=== PATIENT | male | born 1950 | race Caucasian/White ===

== ENCOUNTER 2021-08-09 05:59 | Observation (INO) ==
--- NOTE | 2021-07-21 08:48 | PAT Medication Instructions ---
Medication Instructions Date of Service July 21, 2021 Home Medications Lactobacillus acidophilus 10 billion cell capsule (Probiotic) 10,000 mmu cells PO QAM acetaminophen 650 mg tablet,extended release 1,300 mg PO Q8H PRN cod liver oil 1 cap PO QPM vitamins A,C,P-nlkf-bbeoqf 14,320 unit-226 mg-200 unit capsule (PreserVision AREDS) 1 cap PO QAM STOP taking 2 weeks before surgery cod liver oil 1 cap PO QPM vitamins A,C,V-vzie-eyanex 14,320 unit-226 mg-200 unit capsule (PreserVision AREDS) 1 cap PO QAM DO NOT take the morning of surgery Lactobacillus acidophilus 10 billion cell capsule (Probiotic) 10,000 mmu cells PO QAM Take morning of surgery With a small sip of water, OTHERWISE NOTHING TO EAT OR DRINK AFTER MIDNIGHT: acetaminophen 650 mg tablet,extended release 1,300 mg PO Q8H PRN (okay to take up to 4 hours prior to surgery if needed) Take evening before surgery acetaminophen 650 mg tablet,extended release 1,300 mg PO Q8H PRN (if needed) Other Notes If you have any questions please call us at [phone] or [phone] or [phone] or [phone]
--- NOTE | 2021-07-21 08:59 | Anesthesiology Consultation ---
Date of Service July 21, 2021 Assessment & Plan (1) Encounter for pre-operative examination: - COVID screening: Per assessment on 07/21: Travel screen negative, no known COVID-19 positive contacts or current COVID-19 related symptoms. Surgeon arrang ing preop COVID testing. Awaiting results. - Preop testing: Mild anemia and nonspecific CXR changes (with no acute process) noted on preop testing. Reviewed with Dr. Christopher. Okay to proceed with given surgery but recommendation to establish with PCP post-operatively as patient not currently following with a PCP. Surgeon's office was made aware to forward mes amrit to patient. Chart Review Chart Review: Acceptable Risk for Surgery (pending evaluation AM DOS) and Patient seen in Pre Admission Testing Teaching & Discussion Pre-Anesthesia Teaching/Discussion Notes: Instructed NPO after midnight before surgery,except medications with 15 cc of water. Medication instructions provided according to the PAT guidelines. History Surgery Operation Date: 08/09/21 12:45 Proposed Procedures p Left Anerior Hip Replacement - Ney Joy DO Height/Weight Height: 5 ft 4 in Weight: 78.9 kg Allergies Allergy/AdvReac Type Severity Reaction Status Date / Time No Known Allergies Allergy Verified 07/21/21 08:39 Medications Home Medications Medication Instructions Recorded Confirmed Last Taken Lactobacillus acidophilus 10 10,000 mmu cells PO QAM 07/21/21 07/21/21 Unknown billion cell capsule (Probiotic) acetaminophen 650 mg 1,300 mg PO Q8H PRN 07/21/21 07/21/21 Unknown tablet,extended release cod liver oil 1 cap PO QPM 07/21/21 07/21/21 Unknown vitamins A,C,N-drzh-zwivwa 14,320 1 cap PO QAM 07/21/21 07/21/21 Unknown unit-226 mg-200 unit capsule (PreserVision AREDS) Past Medical History Medical History Osteoarthritis Exercise / Class Metabolic Activity II 4-5 Yardwork/Stairs/Walk up hill Past Family History Family History Other No family history of adverse response to anesthesia Past Surgical History Surgical History History of herniorrhaphy Inguinal hernia (done under local) History of tooth extraction Past Anesthesia History No Hx of Anesthesia Complications and No Family Hx of Anesthesia Complications History of PONV No Hx of PONV and No Hx of Motion Sickness Social History Smoking Status: Never smoker Do You Dip or Chew Tobacco: No Hx Alcohol Use: No substance use type: does not use Review of Systems Patient denies chest pain, shortness of breath, dyspnea on exertion, fever, chills, cough, wheezing, palpitations. Physical Exam Vital Signs VITALS BP 162/85 P 76 TEMP 98.5 SP02 96%RA RESP 16 PHYSICAL Full cervical extension range of motion. Full TMJ range of motion. TMD 3.5 finger breaths Mallampati Score 2 Dentition: upper/lower full dentures Lungs: clear throughout to auscultation Cardiac: regular rate and rhythm, no murmurs noted Spine: normal Carotid arteries: negative bruit Extremities: no edema Long, thin galvez- pt Chris, wishes not to cut/trim d/t muslim reasons Lab Results Anesthesia Preop Results Results Anesthesia Widget: WBC 6.50 K/uL (4.8-10.8) 07/21/21 Hgb 11.4 g/dL (14.0-18.0) L 07/21/21 Hct 35.0 % (42-52) L 07/21/21 Plt 247 K/uL (130-400) 07/21/21 Na 140 mmol/L (136-145) 07/21/21 K 5.1 mmol/L (3.5-5.1) 07/21/21 Cl 107 mmol/L (98-107) 07/21/21 CO2 27 mmol/L (21-32) 07/21/21 BUN 21 mg/dl (7-18) H 07/21/21 Creat 1.28 mg/dl (0.6-1.4) 07/21/21 Glucose Level 103 mg/dl (70-99) H 07/21/21 PT 10.3 Seconds (9.0-12.0) 07/21/21 PTT 28.5 Seconds (21.0-31.0) 07/21/21 INR 1.0 (0.9-1.1) 07/21/21 Blood Type O Positive 07/21/21 Antibody Screen NEGATIVE 07/21/21 Testing Electrocardiogram Date: 07/21/21 Normal sinus rhythm at 61 bpm. Moderate voltage criteria for LVH, may be normal variant. Chest X-Ray Date: 07/21/21 FINDINGS: There is a 1 cm dense nodule within the left lower lobe. This favors a calcified granuloma. No pneumothorax. No pleural effusions. The heart is normal in size. No evidence for pulmonary edema. No focal lung consolidations to suggest pneumonia. Mild volume loss within the right hemithorax. This could be chronic. IMPRESSION: No acute process within the chest. Mild volume loss within the right hemithorax. Comparison to prior studies would be helpful to assess for stability.
--- NOTE | 2021-08-06 06:04 | History & Physical Report ---
Date of Service August 06, 2021 Assessment & Plan (1) Osteoarthritis of left hip: He planWe will proceed with a left anterior total hip arthroplasty. Postoperatively he will be started on aspirin for DVT prophylaxis and kept overnight in the hospital for postoperative medical management. Is to do his own physical therapy upon discharge. History of Present Illness Chief Complaint: Osteoarthritis of the left hip. Primary Care Provider: SWAPNA PCP Nicolas is a pleasant 71-year-old male who is been dealing with chronic worsening left hip and groin pain. X-rays and clinical examination have been diagnostic for advanced osteoarthritis of the left hip. After failing extensive conservative treatment, he has elected proceed with a left anterior total hip arthroplasty.. Allergies Allergy/AdvReac Type Severity Reaction Status Date / Time No Known Allergies Allergy Verified 07/21/21 08:39 Home Medications Medication Instructions Recorded Confirmed Type Lactobacillus acidophilus 10 10,000 mmu cells PO QAM 07/21/21 07/21/21 History billion cell capsule (Probiotic) acetaminophen 650 mg 1,300 mg PO Q8H PRN 07/21/21 07/21/21 History tablet,extended release cod liver oil 1 cap PO QPM 07/21/21 07/21/21 History vitamins A,C,A-fcgo-qtqaie 14,320 1 cap PO QAM 07/21/21 07/21/21 History unit-226 mg-200 unit capsule (PreserVision AREDS) Past Med/Surg History Medical History Osteoarthritis Surgical History History of herniorrhaphy Inguinal hernia (done under local) History of tooth extraction Family History Other No family history of adverse response to anesthesia Social History Smoking Status: Never smoker Second Hand Exposure: No; Hx Alcohol Use: No Preferred Language: Lithuanian Fisher Required: No Beliefs That Will Affect Care: Quaker Quaker Beliefs: JU Current Living Situation: Family Current Living Situation Comment: AND 2 DAUGHTERS Feels Safe at Home: Yes Assistive Devices: Cane, Denture - Upper, Denture - Lower and Glasses Review of Systems All systems reviewed & are unremarkable except as noted in HPI & below. Physical Exam On physical examination of the left hip, he has a slightly antalgic gait. He has limited range of motion with flexion, internal and external rotation. He has pain with forced internal rotation of his hip.. Constitutional WD/WN, vitals as above Eyes PERRL, conjunctivae normal, anicteric sclerae ENMT external ear and nose normal, oropharynx normal Neck trachea midline, no thyromegaly Respiratory normal respiratory effort Cardiovascular RRR, no murmur, no edema Gastrointestinal (Abdomen) normal bowel sounds, soft, nontender, no hepatosplenomegaly Psychiatric A+Ox3, euthymic affect Results & Data Results & Data Laboratory Results . Diagnostic Findings X-rays of the left hip show advanced osteoarthritis with joint space narrowing, osteophyte formation, and vfcn-iy-vbrv articulation. PG Care Time/CCT Total # of Minutes Spent Total Time Spent with Patient: Total time spent is greater than 50% in coordination of care (as documented) at patient's floor/unit and/or counseling patient: Coding Level of Care Code None Diagnoses Osteoarthritis of left hip M16.12
[2021-08-09] MEDS ORDERED: FAMOTIDINE 20 MG TAB PO SCH (06:00)
[2021-08-09] MEDS ORDERED: TRANEXAMIC ACID 1,000 MG **IV Pre-op IV SCH (06:00)
[2021-08-09] MEDS ORDERED: ROPIVACAINE 0.5% HCL/PF 150 MG, BUPIVACAINE 0.75% MPF 20 ML, EPINEPHrine 30MG/30ML (OR ... INSTIL SCH (06:00)
[2021-08-09] MEDS ORDERED: GABAPENTIN 300 MG CAP PO SCH (06:00)
[2021-08-09] MEDS ORDERED: LR 500ML BOLUS, THEN 15ML/HR IV SCH (06:00)
[2021-08-09] MEDS ORDERED: TRANEXAMIC ACID 1,000 MG **IV Intra-op IV SCH (06:00)
[2021-08-09] MEDS ORDERED: ceFAZolin 2000MG 2,000 MG/15 ML SYR IV SCH (06:00)
[2021-08-09] MEDS ORDERED: LR 60ML/HR IV SCH (06:00)
[2021-08-09] MEDS ORDERED: dexAMETHasone 4 MG TAB PO SCH (06:00)
[2021-08-09] MEDS ORDERED: ACETAMINOPHEN 500 MG TAB ONE (06:30)
[2021-08-09] MEDS ORDERED: BUPIVACAINE 0.5 % 5 MG/1 ML PF 10ML VIAL ONE (06:36)
--- NOTE | 2021-08-09 06:37 | History & Physical Bridge Note ---
Date of Service August 09, 2021 History & Physical Bridge Note I have examined the patient, reviewed the History & Physical and in the interval since the performance of the History & Physical I have noted the following changes of clinical significance: no changes noted
[2021-08-09] MEDS ORDERED: fentaNYL citrate 100 MCG/2 ML VIAL IV PRN (07:36)
[2021-08-09] MEDS ORDERED: ATROPINE SULFATE 0.1 MG/ML 10ML SYR IV PRN (07:36)
[2021-08-09] MEDS ORDERED: ePHEDrine sulfate 50 MG/ML AMP IV PRN (07:36)
[2021-08-09] MEDS ORDERED: ONDANSETRON INJ 2 MG/ML 2 ML VIAL IV PRN ×2 (07:36→11:47)
[2021-08-09] MEDS ORDERED: MIDAZOLAM HCL 1 MG/ML 2ML VIAL ONE (07:55)
[2021-08-09] MEDS ORDERED: fentaNYL citrate 100 MCG/2 ML VIAL ONE (07:55)
[2021-08-09] MEDS ORDERED: ORTHO JOINT ANESTHETIC ONE (08:44)
[2021-08-09] MEDS ORDERED: ONDANSETRON INJ 2 MG/ML 2 ML VIAL ONE (09:18)
[2021-08-09] MEDS ORDERED: LIDOCAINE 2% 2 ML VIAL/AMP(20MG/ML) INFIL ONE (09:18)
[2021-08-09] MEDS ORDERED: PHENYLEPHRINE 100MCG/ML 5ML SYR ONE (09:18)
[2021-08-09] MEDS ORDERED: PROPOFOL IV EMULSION 10 MG/ML 20 ML VIAL IV ONE (09:18)
--- NOTE | 2021-08-09 10:31 | Operative Report ---
PG Post Operative Report Pre & Post Diagnosis Operation Date: 08/09/21 08:30 Pre-Op Diagnosis: Left Hip Osteoarthritis Post-Op Diagnosis: Left Hip Osteoarthritis I identified the patient and participated in the time-out.: Yes Procedure Operation Date: 08/09/21 08:30 Actual Procedures p Left Anterior Total Hip Replacement(Left) - Ney Joy DO Surgeon Ney Joy, Undercutter Operator Ney Thomas PAC Estimated Blood Loss 200 Findings Consistent with Post-Op Diagnosis Specimens Left femoral head Complications none Disposition Disposition: Recovery Room Indications Nicolas is a pleasant 71-year-old male who is been dealing with chronic increasing left hip and groin pain. X-rays and clinical examination are diagnostic for advanced osteoarthritis of the left hip. After failing conservative treatment, he elected proceed with a left anterior total hip arthroplasty. Description of Procedure Implants used I used a ZimmerBiomet total hip arthroplasty system with a size 2 high offset Avenir Complete stem, a 54 mm G7 cup with a 25mm screw, an E1 polyethylene liner, a 40 mm ceramic head with a +3.5 neck. Nicolas arrived at the hospital for the above procedure. He was seen in the preoperative holding area and the operative extremity was identified and signed. He was given a spinal anesthetic, a preoperative antibiotic, and TXA. He was then taken back to the operating room and laid on the table in the supine position. He was given basic sedation. The operative leg was secured to a Puristst leg positioner. The hip was then prepped and draped in sterile fashion. A timeout was done and the patient and the operative extremity was properly identified. An anterior approach was used. Dissection was taken down through the fascia and the tensor muscle belly was retracted laterally and the rectus was retracted medially. The circumflex vessels were identified and ligated. The capsule was then incised and tagged for later repair. The femoral neck was then cut and the femoral head was removed. The acetabulum was exposed. Time was spent doing a complete circumferential labral release. Sequential reaming of the acetabulum up to a size 53 reamer was done. Final reamings were done under fluoroscopy to ensure appropriate version. A Biomet 54 mm G7 cup was then impacted into place. A single 25 mm screw was placed. The E1 polyethylene liner was then snapped into place. Surrounding soft tissues were then injected with 100 cc of an orthopedic pain control cocktail. The proximal femur was then exposed. Sequential broaching up to a size 2 broach was done. Off that broach a size 40 head with a +3.5 neck was trialed. The hip was reduced and fluoroscopic images showed anatomic alignment of the implants in acceptable length. The broach was removed. The final size 2 high offset Avenir Complete stem was then impacted into place. A ceramic 40 mm head with a +3.5 neck was then impacted onto the stem and the hip was reduced. Final fluoroscopic images showed anatomic alignment of the hip. The capsule was then closed with #1 Vicryl suture. A dilute betadyne lavage was then done for 3 minutes. The joint was then irrigated with normal saline solution. The fascia was closed with #1 PDS suture. Skin was closed with 2-0 Vicryl, tatiana, and a Silverlon dressing. He was then transferred to a hospital bed and taken to the post anesthesia care unit in stable condition. He tolerated the procedure well. Ney Thomas PA-C, was present for the entire procedure. He was critical for patient positioning, prepping, draping, retraction exposure, wound closure and application of sterile dressing. I attest to the content of the Intraoperative Record and any orders documented therein. Any exceptions are noted below.
--- NOTE | 2021-08-09 10:41 | Fluoroscopy Report ---
FL hip LT 1V HISTORY: 71 years-old Male LEFT ANTERIOR HIP left hip total joint arthroplasty COMPARISON: Hip radiograph 06/17/2021 TECHNIQUE: 2 spot fluoroscopic images of the left hip were obtained utilizing 23.5 seconds fluoroscop y time FINDINGS: Left hip total joint arthroplasty demonstrates satisfactory alignment. No acute fracture or unexpecte d opaque foreign body. Expected postoperative soft tissue swelling with deep tissue air. IMPRESSION: Left hip total joint arthroplasty with expected postoperative changes. ACT 112: Negative or not required by law. The above report was generated using voice recognition software. It may contain grammatical, syntax o r spelling errors. Electronically signed by: David Bryson M.D. 08/09/2021 10:40 AM
--- NOTE | 2021-08-09 11:38 | Anesthesiology Progress Note ---
Date of Service August 09, 2021 Anesthesia Post Procedure Vital Signs Vital Signs: Temp Pulse Pulse Resp BP Pulse Ox 08/09/21 11:25 97.7 F 70 12 125/78 95 08/09/21 11:15 75 12 130/76 97 08/09/21 11:05 77 12 127/71 100 08/09/21 10:55 75 18 129/77 100 08/09/21 10:46 98.4 F 83 14 131/70 100 08/09/21 07:29 98.2 F 70 20 175/94 H 100 08/09/21 06:52 98.2 F 79 20 171/93 H 98 Transfer of Care Handoff Completed per policy Notes Mental Status: alert / awake / arousable and participated in evaluation Patient Amnestic to Procedure: Yes Nausea / Vomiting: adequately controlled Pain: adequately controlled Airway Patency, RR, SpO2: stable & adequate BP & HR: stable & adequate Hydration State: stable & adequate Neuraxial Anesthesia: was administered and sensory block is resolving Anesthetic Complications: no major complications apparent and Pt Satisfied with anesthetic care
[2021-08-09] MEDS ORDERED: SODIUM CHLORIDE 0.9% 1000ML 1,000 ML IV SCH (11:47)
[2021-08-09] MEDS ORDERED: METOCLOPRAMIDE HCL INJ 5 MG/ML 2 ML VIAL IV PRN (11:47)
[2021-08-09] MEDS ORDERED: MAGNESIUM HYDROXIDE SUSP 30 ML UDC PO PRN (11:47)
[2021-08-09] MEDS ORDERED: NALOXONE HCL 0.4 MG/1 ML VIAL/CARP IV PRN (11:47)
[2021-08-09] MEDS ORDERED: HYDROmorphone INJ 0.5 MG/0.5 ML SYR IV PRN (11:47)
[2021-08-09] MEDS ORDERED: bisacodyL 10 MG SUPP PR PRN (11:47)
[2021-08-09] MEDS ORDERED: oxyCODONE HCL IR 5 MG TAB (IMMEDIATE RELEASE) PO PRN (11:47)
--- NOTE | 2021-08-09 13:13 | XRay Report ---
XR hip 1V LT w pelvis INDICATION: MN ^Y ^YESENIA ^IN PACU - A/P PELVIS and LATERAL HIP ^INCLUDE ALL OF IMPLANT TECHNIQUE: 1 views of the left hip were obtained. Comparison: Comparison is made to intraoperative fluoroscopy 08/09/2021 and left hip 3 views 06/17/2021 FINDINGS: There is interval placement of a right total hip arthroplasty. No evidence of hardware fracture. Subc utaneous emphysema is seen postprocedurally. The right hip demonstrates moderate osteoarthritic donovan es with calcific bodies The bones are anatomically aligned. The bony mineralization is normal. IMPRESSION: Status post left hip arthroplasty. ACT 112: Negative or not required by law. Electronically signed by: Franki Bang M.D. 08/09/2021 1:11 PM
[2021-08-09] MEDS: ACETAMINOPHEN 500 MG TAB PO SCH ×2 (14:09→21:07)
[2021-08-09] MEDS: KETOROLAC TROMETHAMINE 15 MG/ML VIAL IV SCH ×2 (14:10→18:31)
[2021-08-09] MEDS: ceFAZolin 2000MG 2,000 MG/15 ML SYR IV SCH (17:32)
[2021-08-09] MEDS ORDERED: SENNA 8.6 MG TAB PO SCH (21:00)
[2021-08-09] MEDS: ASPIRIN 81 MG ECTAB PO SCH (21:07)
[2021-08-09] MEDS: DOCUSATE SODIUM 100 MG CAP PO SCH (22:06)
[2021-08-10] MEDS: KETOROLAC TROMETHAMINE 15 MG/ML VIAL IV SCH ×3 (02:17→11:57)
[2021-08-10] MEDS: ceFAZolin 2000MG 2,000 MG/15 ML SYR IV SCH (02:17)
[2021-08-10] MEDS: ACETAMINOPHEN 500 MG TAB PO SCH (06:03)
--- NOTE | 2021-08-10 06:32 | Orthopedic Progress Note ---
Date of Service August 10, 2021 Assessment & Plan (1) Status post left hip replacement: Overall is doing very well. Is not having much pain in the left hip. He will be seen by physical therapy today for ambulation and range of motion exercises. He is on aspirin for DVT prophylaxis. He can be discharged home later today. He will follow-up with orthopedics in 2 weeks. Subjective Nicolas was seen at bedside this morning. Overall is doing very well. Is not having much pain in the left hip. He has been up and ambulating to the bathroom. He has no complaints.. Review of Systems All systems reviewed & are unremarkable except as noted in HPI & below. Physical Exam On physical examination of the left hip, the dressing is clean and dry. He has active dorsiflexion plantarflexion of his left ankle. Sensation is intact throughout. Results & Data Results & Data Laboratory Results . Diagnostic Findings Postoperative x-rays of the left hip show the prosthesis to be in anatomic alignment without any evidence of fracture, dislocation, or loosening. PG Care Time/CCT Total # of Minutes Spent Total Time Spent with Patient: Total time spent is greater than 50% in coordination of care (as documented) at patient's floor/unit and/or counseling patient: Coding Level of Care Code 07248 Post Operative Follow-Up Diagnoses Status post left hip replacement Z96.642
--- NOTE | 2021-08-10 06:33 | Discharge Summary ---
Date of Service August 10, 2021 Admission HPI (Per Admitting) Nicolas is a pleasant 71-year-old male who is been dealing with chronic worsening left hip and groin pain. X-rays and clinical examination have been diagnostic for advanced osteoarthritis of the left hip. After failing extensive conservative treatment, he has elected proceed with a left anterior total hip arthroplasty.. Admission Exam (Per Admitting) On physical examination of the left hip, he has a slightly antalgic gait. He has limited range of motion with flexion, internal and external rotation. He has pain with forced internal rotation of his hip.. Principal Diagnosis Same as "Discharge Diagnosis" noted below under Discharge Instructions. Discharge Exam On physical examination of the left hip, the dressing is clean and dry. He has active dorsiflexion plantarflexion of his left ankle. Sensation is intact throughout. Discharge Data Procedures Performed Operation Date: 08/09/21 08:30 Actual Procedures p Left Anterior Total Hip Replacement(Left) - Ney Joy DO Ordered Studies 08/09/21 08:30 FL hip LT 1V Routine Hospital Course (1) Status post left hip replacement: On August 09, 2021 Nicolas arrived at [facility] and underwent a left hip replacement without complication. He had a spinal anesthetic. Postoperatively he was started on aspirin for DVT prophylaxis and transferred to the general orthopedic floors. His hospital course was uneventful. On postop day #1 his vital signs were stable and his pain was well controlled. He was able to participate well with physical therapy doing ambulation and range of motion exercises. He was then discharged home. He will follow-up with orthopedics in 2 weeks. PG Care Time/CCT Total # of Minutes Spent Total Time Spent with Patient: Total time spent is greater than 50% in coordination of care (as documented) at patient's floor/unit and/or counseling patient: Discharge Plan Discharge Items Patient Disposition: Home - Home Health Services Reason For Visit: Left Hip Osteoarthritis Discharge Diagnosis: Left hip replacement Activity: As commented below Non-emergency contact: Surgeon Call non-emergency contact if: your wound has increased redness and your wound has increased drainage Follow-up/Referrals: PCP,NO [Primary Care Provider] - Diet: Regular Addtl Attending Provider Instructions: Activity and Therapy Recommendations: * If you are using [facility] then therapy will be provided at your home until they feel you have accomplished all of your goals. * If you are using [facility] then Physical Therapy will be provided until they feel you are ready to start Outpatient Physical Therapy. * If you are not using home therapy then Outpatient Physical Therapy should start about 3-5 days from your day of surgery. Therapy will last about 6-10 weeks * You were shown a series of exercises in the hospital. Do these exercises three times each day including the exercises you were shown in physical therapy. * Get up and walk several times each day.~ For the first four weeks, try not to stand or walk for more than one hour at a time. If you do stand or walk for more than one hour, you will not hurt anything, but your leg will likely swell.~~ * As you feel comfortable, you may change from the walker or crutches to a cane and~then to independent walking. Medications: * Narcotic You will likely be sent home from the hospital with a prescription for the narcotic pain medication that worked best throughout your stay. * Aspirin Most patients will be required to take Aspirin 81mg twice a day for 6 weeks after surgery. This is obtained [id number] and a prescription is not necessary. * Other medications may be prescribed for specific circumstances. If you have any questions, please call the office at . * Resume previous home medications unless otherwise instructed TEDs/Elastic Stockings: The white elastic stockings help limit swelling and prevent blood clots from forming in your legs. The more you wear them, the more they work. Wear them for six weeks. Dressing Care: Leave the Silverlon dressing in place for 7 days. After 7 days you may remove the dressing. If the incision is not draining then you may leave the tatiana open to air. If there is a little bit of drainage or if the tatiana are getting stuck on your clothing then cover the incision with a dry dressing. The tatiana will be removed at your 2 week follow-up appointment. Showering: You may shower with the Silverlon dressing in place. Do not let the shower spray hit the dressing directly. Pat the Silverlon dressing dry. If the dressing becomes wet underneath, then simply remove the dressing. Keep the incision dry until you are 7 days out from the day of surgery. After 7 days you may remove the Silverlon dressing and shower with the tatiana exposed. Let soapy water run over the tatiana and pat them dry. Do not scrub or soak the incision. Things To Watch For: * Drainage from the incision site that occurs more than one week after your surgery. * Increased redness at the incision site. * Fever above 102 degrees Fahrenheit. * Unusual chest pain or shortness of breath. * Call [facility] at with any of the above problems Follow-Up Visit: Follow-up with Dr. Joy's PA (Ney Thomas) 2-3 weeks after your day of surgery. He will remove your tatiana and answer any questions. If you have any additional questions or concerns, Dr Joy is usually in the office at the same time and will be available An appointment was probably scheduled when you signed-up for surgery in the office. If you have any questions call Office Instructions: More detailed instructions as well as Frequently Asked Questions were provided in a folder by our office when you signed-up for surgery. Please review these instructions when you get home. If you have any further questions or concerns, please feel free to call the office at [phone] Pending Studies at Discharge: No Stand-Alone Forms: My [facility] [employer], Smoking Cessation Medications and DC Order Prescriptions: New oxycodone 5 mg Tablet 5 mg PO Q4H PRN (Reason: pain) Qty: 30 RF: 0 aspirin 81 mg Tablet,Delayed Release (Dr/Ec) 81 mg PO BID 42 Days Qty: 84 RF: 0 Continued cod liver oil Capsule 1 cap PO QPM RF: 0 acetaminophen [Tylenol Arthritis] 650 mg Tablet Extended Release 1,300 mg PO Q8H PRN (Reason: Pain) RF: 0 PreserVision AREDS 14,320-226-200 [id number] Capsule 1 cap PO QAM RF: 0 Probiotic 10 billion cell Capsule 10,000 mmu cells PO QAM RF: 0 Discharge Orders: Discharge Order (Routine); Ordered 08/10/21 Ordered By: Ney Joy Admission Data Admit Date/Time: 08/09/21 10:47 Attending Provider: Ney Joy Admit Provider: Ney Joy Primary Care Provider: PCP,SWAPNA
[2021-08-10] MEDS ORDERED: dexAMETHasone 4 MG TAB PO SCH (08:00)
[2021-08-10] MEDS: ASPIRIN 81 MG ECTAB PO SCH (08:50)
[2021-08-10] MEDS: DOCUSATE SODIUM 100 MG CAP PO SCH (08:50)
[2021-08-10] MEDS ORDERED: MULTIVITAMIN TAB PO SCH (09:00)
== END 2021-08-10 13:00 | disposition home or self-care (01) ==
LOC: 3E 05:59 → ASU 05:59

== ENCOUNTER 2022-08-04 12:21 | Inpatient (IN) ==
[2022-08-04 14:02] LABS: Partial Thromboplastin Time 26.8 Seconds (21.0-31.0); Prothrombin Time 11.1 Seconds (9.0-12.0)
[2022-08-04 14:29] LABS: Hematocrit (blood only) 24.6 % (40.1-51.0); Hemoglobin 7.8 g/dl (14.0-18.0); Mean Corpuscular Hgb Conc 31.7 g/dL (32.0-36.0); Mean Corpuscular Volume 94.6 fL (80.0-100.0); Platelet Count 156 K/uL (130-400); White Blood Count 6.36 K/ul (4.8-10.8)
[2022-08-04 14:30] LABS: Albumin Globulin Ratio 1.3 (0.9-2); Albumin Level 3.6 gm/dl (3.4-5.0); BUN Creatinine Ratio 13.2 (10-20); Bilirubin,Total 0.3 mg/dl (0.2-1.0); Calcium 8.4 mg/dl (8.5-10.1); Creatinine Clr Calc Pharmacy 11.3 ml/min; Est GFR (Non-African American) 9.5 ml/min; Globulin 2.8 gm/dl (2.5-4.0); Potassium 4.9 mmol/L (3.5-5.1); Total Protein 6.4 gm/dl (6.0-8.3)
[2022-08-04] MEDS ORDERED: SODIUM CHLORIDE 0.9% 250 ML IV PRN (15:26)
[2022-08-04 15:53] LABS: Magnesium 2.1 mg/dl (1.7-2.4)
--- NOTE | 2022-08-04 17:00 | CT Scan Report ---
CT SCAN OF THE ABDOMEN AND PELVIS WITHOUT IV CONTRAST CLINICAL HISTORY: Acute renal insufficiency. COMPARISON STUDY: Lumbar spine radiographs dated 06/17/2021. TECHNIQUE: CT scan of the abdomen and pelvis is performed from the lung bases to the proximal femora. Images are reviewed in the axial, sagittal, and coronal planes. IV contrast was not administered for this examination. A dose lowering technique was utilized adhering to the principles of ALARA. CT DOSE: 477.70 mGy.cm FINDINGS: Lung bases: The heart is in the large and without pericardial effusion. There are scattered coronary artery calcifications. There is diminished attenuation of the cardiac blood pool as compared to the m yocardium suggesting anemia. There are small pleural effusions with dependent consolidation. Emphysem atous change is suspected. Parenchymal scarring is seen at both lung bases. A 1.2 cm calcification-co ntaining nodule is seen in the lingula on image #43. A calcified granuloma seen at the right lung bas e. Liver: The unenhanced liver is normal in size, contour, and attenuation. There is no intrahepatic alexandra iary ductal dilatation. Scattered hepatic cysts measure up to 17 mm. Gallbladder: There are tiny calcified gallstones without CT evidence of acute cholecystitis. Spleen: Normal in size and attenuation. Pancreas: The unenhanced pancreas is moderately atrophic and grossly unremarkable. Adrenal glands: Unremarkable. Kidneys: The unenhanced kidneys are atrophic and without hydronephrosis. There are no renal calculi i dentified. A 1.9 cm cyst is noted in the left kidney. Abdominal vasculature: The abdominal aorta is normal in course and caliber noting mild atheroscleroti c calcification. Bowel: There is moderate to advanced colonic diverticulosis without CT evidence of acute diverticulit is. No bowel obstruction is seen. The appendix is well-visualized and normal. Peritoneum: There is no intraperitoneal free air or abdominal ascites. There is a fat-containing umbi lical hernia. Lymphadenopathy: None. Pelvic viscera: Evaluation of the pelvis is degraded by streak artifact from a left hip arthroplasty. The prostate gland is enlarged and heterogeneous noting median lobe hypertrophy. The bladder is dist ended, and the wall appears thickened/trabeculated indicating chronic outlet obstruction. There are l arge left and small right-sided hydroceles. There is evidence of previous left inguinal herniorrhaphy . A small fat-containing inguinal hernia is noted on the right. Skeletal structures: The skeletal structures are osteopenic. There is moderate lumbosacral spondylosi s. No lytic or blastic lesions are seen. A left hip arthroplasty is in place. Arthritic change is see n in the right hip. IMPRESSION: 1. No acute infectious or inflammatory findings are identified in the abdomen or pelvis. 2. Cardiomegaly and small pleural effusions. 3. Colonic diverticulosis without CT evidence of acute diverticulitis. 4. Prostatomegaly with evidence of chronic bladder outlet obstruction. 5. Large left and small right hydroceles. 6. Cholelithiasis. 7. Additional findings as above. ACT 112: Negative or not required by law. Electronically signed by: Samy Chester M.D. 08/04/2022 4:58 PM
--- NOTE | 2022-08-04 17:04 | Emergency Department Note ---
History of Present Illness General Chief Complaint: Abnormal Labs/Diagnostic Testing Stated Complaint: SENT BY , ABNORMAL LABS Time Seen by Provider: 08/04/22 15:05 History of Present Illness Provider Complaint: + abnormal lab Initial visit (ago): week(s) (2) Description of abnormal result: Low hemoglobin Associated symptoms: + shortness of breath, + malaise and + nausea; no chest pain HPI narrative: 72-year-old male presents emergency department for shortness of breath and nausea for the last 2 weeks. The patient states his PCP referred him over because his hemoglobin was low. Patient denies any melena or hematochezia. Denies any hematuria or dysuria. No chest pain. Home Medications Medication Instructions Recorded Confirmed Type No Known Home Medications 08/04/22 08/04/22 History Allergies Allergy/AdvReac Type Severity Reaction Status Date / Time No Known Allergies Allergy Verified 08/04/22 18:02 Past Med/Surg History Medical History (Updated 08/04/22 @ 18:24 by KRISTIN Kohler) Osteoarthritis Surgical History (Updated 08/04/22 @ 18:00 by KRISTIN Kohler) History of herniorrhaphy Inguinal hernia (done under local) History of hip replacement History of tooth extraction Family History (Updated 08/04/22 @ 18:00 by KRISTIN Kohler) Other Anemia No family history of adverse response to anesthesia Denies family history of Heart disease Cancer Social History Smoking Status: Never smoker Second Hand Exposure: No; Hx Alcohol Use: No Preferred Language: [place] Communication Ability: Effective 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 Beliefs That Will Affect Care: Yazidi Yazidi Beliefs: [facility] marital status: Current Living Situation: Family Current Living Situation Comment: AND 2 DAUGHTERS Feels Safe at Home: Yes Assistive Devices: Walker Review of Systems A total of 10 systems reviewed and were otherwise negative Physical Exam Vital Signs: Vital Signs - 24 hr 08/04/22 12:38 08/04/22 15:34 08/04/22 17:16 Temperature 36.5 C 36.8 C Temperature Source Temporal Artery Sc an Oral Pulse Rate 56 L 80 Pulse Rate [Right Finger] 79 Respiratory Rate 17 14 16 Blood Pressure 202/85 H Blood Pressure Emily n 124 Pulse Oximetry 98 95 96 Oxygen Delivery Me thod Room Air Room Air Sepsis Recent Feve r Within 48 Hours No Sepsis New/Unexpla ined Change in Men cas Status N/A Sepsis Action Take n by Nursing No Action Required 08/04/22 17:33 08/04/22 17:48 Temperature 36.7 C Temperature Source Oral Pulse Rate 82 80 Pulse Rate [Right Finger] Respiratory Rate 17 16 Blood Pressure Blood Pressure Emily n Pulse Oximetry 97 97 Oxygen Delivery Me thod Sepsis Recent Feve r Within 48 Hours Sepsis New/Unexpla ined Change in Men cas Status Sepsis Action Take n by Nursing Physical Exam: Physical Exam GENERAL: He is oriented to person, place, and time. He appears well-developed and well-nourished. He does not appear distressed. HENT: Exam performed. - Head: Normocephalic and atraumatic. - Right Ear: External ear normal. No mastoid tenderness. - Left Ear: External ear normal. No mastoid tenderness. - Mouth/Throat: The oropharynx is clear and moist. No trismus in the jaw. No dental abscesses or uvula swelling. No oropharyngeal exudate or tonsillar abscesses. EYES: Conjunctivae and EOM are normal. Pupils are equal, round, and reactive to light. Right eye exhibits no discharge. Left eye exhibits no discharge. No scleral icterus. NECK: Normal range of motion. Neck supple. No JVD present. No spinous process tenderness present. No carotid bruit present. No rigidity. No tracheal deviation and normal range of motion present. No Brudzinski's sign and no Kernig's sign noted. CV: Normal rate, regular rhythm, normal heart sounds and intact distal pulses. There is no peripheral edema. Palpable radial pulses bue. PULM/CHEST: Effort normal and breath sounds normal. No respiratory distress. No stridor. He has no wheezes. He has no rales. - Chest Wall: He exhibits no tenderness. ABD: The abdomen is soft. Bowel sounds are normal. He has no distension. No mass is present. There is no tenderness. There is no rebound, no guarding, no Araya's sign and no tenderness at McBurney's point. Rovsig negative. Rectal: Hemoccult negative. MUSC/SKEL: Normal range of motion. There is no peripheral edema, tenderness or deformity. LYMPH: No cervical adenopathy. NEURO: He is alert and oriented to person, place, and time. He has normal strength. No cranial nerve deficit or sensory deficit. Coordination and gait normal. GCS eye subscore is 4. GCS verbal subscore is 5. GCS motor subscore is 6. Cerebellar tests wnl. SKIN: Pale Course Course 1505: The patient was evaluated in room B9. A complete history and physical exam was performed Cardiac monitoring: An order was placed for continuous cardiac monitoring. The monitor shows a rate of 80 with sinus rhythm 1715: Vital signs stable. Labs show hemoglobin of 7.8. Hemoglobin 1 year ago was 11.4. Patient be transfused 1 unit packed unit red blood cells. White blood cell count 6.36. Patient's creatinine 5.44. EMR reviewed and the patient had a creatinine of 1.[address] of the abdomen shows no acute infectious inflammatory findings prostamegaly with chronic bladder outlet obstruction. [facility] will be [facility]. Medical Decision Making Laboratory Data Result diagrams: 08/04/22 13:25 08/04/22 13:25 Lab Results 08/04/22 08/04/22 08/04/22 Range/Units 13:25 13:25 13:25 WBC 6.36 (4.8-10.8) K/ul RBC 2.60 L (4.63-6.08) M/uL Hgb 7.8 L (14.0-18.0) g/dl Hct 24.6 L (40.1-51.0) % MCV 94.6 (80.0-100.0) fL MCH 30.0 (25.0-34.0) pg MCHC 31.7 L (32.0-36.0) g/dL RDW Std Deviation 48.0 H (36.4-46.3) fL RDW Coeff of Tobin 14.0 (11.5-14.5) % Plt Count 156 (130-400) K/uL MPV 13.0 H (9.4-12.4) fL PT 11.1 (9.0-12.0) Seconds INR 1.0 (0.9-1.1) APTT 26.8 (21.0-31.0) Seconds PTT Ratio 1.0 Sodium 138 (136-145) mmol/L Potassium 4.9 (3.5-5.1) mmol/L Chloride 111 H (98-107) mmol/L Carbon Dioxide 17 L (21-32) mmol/L Anion Gap 10 (3-11) BUN 72 H (6-23) mg/dl Creatinine 5.44 H* (0.6-1.4) mg/dl Est Cr Clr Drug Dosing 11.3 ml/min Est GFR ( Amer) 11.0 ml/min Est GFR (Non-Af Amer) 9.5 ml/min BUN/Creatinine Ratio 13.2 (10-20) Glucose 98 (70-99(Fasting)) mg/dl Calcium 8.4 L (8.5-10.1) mg/dl Magnesium (1.7-2.4) mg/dl Iron (35-175) mcg/dl TIBC (250-450) mcg/dl Unsaturated IBC (155-355) mcg/dl Transferrin % Sat (20-50) % Total Bilirubin 0.3 (0.2-1.0) mg/dl AST 13 (13-39) U/L ALT 27 (7-52) U/L Alkaline Phosphatase 78 (34-104) U/L Total Protein 6.4 (6.0-8.3) gm/dl Albumin 3.6 (3.4-5.0) gm/dl Globulin 2.8 (2.5-4.0) gm/dl Albumin/Globulin Ratio 1.3 (0.9-2) Lipase (11-82) U/L Urine Color Urine Appearance (Clear) Urine pH (4.5-7.5) Ur Specific Downing (1.000-1.030) Urine Protein (Negative) Urine Glucose (UA) (Negative) Urine Ketones (Negative) Urine Blood (Negative) Urine Nitrite (Negative) Urine Bilirubin (Negative) Urine Urobilinogen (Negative) Ur Leukocyte Esterase (Negative) Urine WBC (Auto) (0-5) /hpf Urine RBC (Auto) (0-4) /hpf U Hyaline Cast (Auto) (0-5) /lpf U Epithel Cells (Auto) (0-5) /lpf Urine Bacteria (Auto) (Negative) SARS-CoV-2, RNA, NAAT (NEGATIVE) Blood Type Antibody Screen Crossmatch 08/04/22 08/04/22 08/04/22 Range/Units 13:25 13:25 15:21 WBC (4.8-10.8) K/ul RBC (4.63-6.08) M/uL Hgb (14.0-18.0) g/dl Hct (40.1-51.0) % MCV (80.0-100.0) fL MCH (25.0-34.0) pg MCHC (32.0-36.0) g/dL RDW Std Deviation (36.4-46.3) fL RDW Coeff of Tobin (11.5-14.5) % Plt Count (130-400) K/uL MPV (9.4-12.4) fL PT (9.0-12.0) Seconds INR (0.9-1.1) APTT (21.0-31.0) Seconds PTT Ratio Sodium (136-145) mmol/L Potassium (3.5-5.1) mmol/L Chloride (98-107) mmol/L Carbon Dioxide (21-32) mmol/L Anion Gap (3-11) BUN (6-23) mg/dl Creatinine (0.6-1.4) mg/dl Est Cr Clr Drug Dosing ml/min Est GFR ( Amer) ml/min Est GFR (Non-Af Amer) ml/min BUN/Creatinine Ratio (10-20) Glucose (70-99(Fasting)) mg/dl Calcium (8.5-10.1) mg/dl Magnesium 2.1 2.1 (1.7-2.4) mg/dl Iron 30 L (35-175) mcg/dl TIBC 231 L (250-450) mcg/dl Unsaturated IBC 201 (155-355) mcg/dl Transferrin % Sat 13 L (20-50) % Total Bilirubin (0.2-1.0) mg/dl AST (13-39) U/L ALT (7-52) U/L Alkaline Phosphatase (34-104) U/L Total Protein (6.0-8.3) gm/dl Albumin (3.4-5.0) gm/dl Globulin (2.5-4.0) gm/dl Albumin/Globulin Ratio (0.9-2) Lipase 25 (11-82) U/L Urine Color Urine Appearance (Clear) Urine pH (4.5-7.5) Ur Specific Downing (1.000-1.030) Urine Protein (Negative) Urine Glucose (UA) (Negative) Urine Ketones (Negative) Urine Blood (Negative) Urine Nitrite (Negative) Urine Bilirubin (Negative) Urine Urobilinogen (Negative) Ur Leukocyte Esterase (Negative) Urine WBC (Auto) (0-5) /hpf Urine RBC (Auto) (0-4) /hpf U Hyaline Cast (Auto) (0-5) /lpf U Epithel Cells (Auto) (0-5) /lpf Urine Bacteria (Auto) (Negative) SARS-CoV-2, RNA, NAAT (NEGATIVE) Blood Type O Positive Antibody Screen NEGATIVE Crossmatch See Detail 08/04/22 08/04/22 Range/Units 15:34 17:00 WBC (4.8-10.8) K/ul RBC (4.63-6.08) M/uL Hgb (14.0-18.0) g/dl Hct (40.1-51.0) % MCV (80.0-100.0) fL MCH (25.0-34.0) pg MCHC (32.0-36.0) g/dL RDW Std Deviation (36.4-46.3) fL RDW Coeff of Tobin (11.5-14.5) % Plt Count (130-400) K/uL MPV (9.4-12.4) fL PT (9.0-12.0) Seconds INR (0.9-1.1) APTT (21.0-31.0) Seconds PTT Ratio Sodium (136-145) mmol/L Potassium (3.5-5.1) mmol/L Chloride (98-107) mmol/L Carbon Dioxide (21-32) mmol/L Anion Gap (3-11) BUN (6-23) mg/dl Creatinine (0.6-1.4) mg/dl Est Cr Clr Drug Dosing ml/min Est GFR ( Amer) ml/min Est GFR (Non-Af Amer) ml/min BUN/Creatinine Ratio (10-20) Glucose (70-99(Fasting)) mg/dl Calcium (8.5-10.1) mg/dl Magnesium (1.7-2.4) mg/dl Iron (35-175) mcg/dl TIBC (250-450) mcg/dl Unsaturated IBC (155-355) mcg/dl Transferrin % Sat (20-50) % Total Bilirubin (0.2-1.0) mg/dl AST (13-39) U/L ALT (7-52) U/L Alkaline Phosphatase (34-104) U/L Total Protein (6.0-8.3) gm/dl Albumin (3.4-5.0) gm/dl Globulin (2.5-4.0) gm/dl Albumin/Globulin Ratio (0.9-2) Lipase (11-82) U/L Urine Color Yellow Urine Appearance Clear (Clear) Urine pH 5.5 (4.5-7.5) Ur Specific Downing 1.012 (1.000-1.030) Urine Protein 3+ H (Negative) Urine Glucose (UA) Negative (Negative) Urine Ketones Negative (Negative) Urine Blood 3+ H (Negative) Urine Nitrite Negative (Negative) Urine Bilirubin Negative (Negative) Urine Urobilinogen Negative (Negative) Ur Leukocyte Esterase Negative (Negative) Urine WBC (Auto) 1-5 (0-5) /hpf Urine RBC (Auto) >30 H (0-4) /hpf U Hyaline Cast (Auto) 1-5 (0-5) /lpf U Epithel Cells (Auto) 10-20 H (0-5) /lpf Urine Bacteria (Auto) Negative (Negative) SARS-CoV-2, RNA, NAAT NEGATIVE (NEGATIVE) Blood Type Antibody Screen Crossmatch Imaging Data Radiologist's Impression: Abdomen/Pelvis CT 08/04/22 15:14 CT SCAN OF THE ABDOMEN AND PELVIS WITHOUT IV CONTRAST CLINICAL HISTORY: Acute renal insufficiency. COMPARISON STUDY: Lumbar spine radiographs dated 06/17/2021. TECHNIQUE: CT scan of the abdomen and pelvis is performed from the lung bases to the proximal femora. Images are reviewed in the axial, sagittal, and coronal planes. IV contrast was not administered for this examination. A dose lowering technique was utilized adhering to the principles of ALARA. CT DOSE: 477.70 mGy.cm FINDINGS: Lung bases: The heart is in the large and without pericardial effusion. There are scattered coronary artery calcifications. There is diminished attenuation of the cardiac blood pool as compared to the myocardium suggesting anemia. There are small pleural effusions with dependent consolidation. Emphysematous change is suspected. Parenchymal scarring is seen at both lung bases. A 1.2 cm calcification-containing nodule is seen in the lingula on image #43. A calcified granuloma seen at the right lung base. Liver: The unenhanced liver is normal in size, contour, and attenuation. There is no intrahepatic biliary ductal dilatation. Scattered hepatic cysts measure up to 17 mm. Gallbladder: There are tiny calcified gallstones without CT evidence of acute cholecystitis. Spleen: Normal in size and attenuation. Pancreas: The unenhanced pancreas is moderately atrophic and grossly unremarkable. Adrenal glands: Unremarkable. Kidneys: The unenhanced kidneys are atrophic and without hydronephrosis. There are no renal calculi identified. A 1.9 cm cyst is noted in the left kidney. Abdominal vasculature: The abdominal aorta is normal in course and caliber noting mild atherosclerotic calcification. Bowel: There is moderate to advanced colonic diverticulosis without CT evidence of acute diverticulitis. No bowel obstruction is seen. The appendix is well- visualized and normal. Peritoneum: There is no intraperitoneal free air or abdominal ascites. There is a fat-containing umbilical hernia. Lymphadenopathy: None. Pelvic viscera: Evaluation of the pelvis is degraded by streak artifact from a left hip arthroplasty. The prostate gland is enlarged and heterogeneous noting median lobe hypertrophy. The bladder is distended, and the wall appears thickened/trabeculated indicating chronic outlet obstruction. There are large left and small right-sided hydroceles. There is evidence of previous left inguinal herniorrhaphy. A small fat-containing inguinal hernia is noted on the right. Skeletal structures: The skeletal structures are osteopenic. There is moderate lumbosacral spondylosis. No lytic or blastic lesions are seen. A left hip arthroplasty is in place. Arthritic change is seen in the right hip. IMPRESSION: 1. No acute infectious or inflammatory findings are identified in the abdomen or pelvis. 2. Cardiomegaly and small pleural effusions. 3. Colonic diverticulosis without CT evidence of acute diverticulitis. 4. Prostatomegaly with evidence of chronic bladder outlet obstruction. 5. Large left and small right hydroceles. 6. Cholelithiasis. 7. Additional findings as above. ACT 112: Negative or not required by law. Electronically signed by: Samy Chester M.D. 08/04/2022 4:58 PM ECG Data Indication: other (arrythmia) Rate (beats per minute): 75 Rhythm: normal sinus Findings: + PVC; no ST depression, no ST elevation or no prolonged QT MDM Narrative Vital signs stable. Labs show hemoglobin of 7.8. Hemoglobin 1 year ago was 11.4. Patient be transfused 1 unit packed unit red blood cells. White blood cell count 6.36. Patient's creatinine 5.44. EMR reviewed and the patient had a creatinine of 1.[address] of the abdomen shows no acute infectious inflammatory findings prostamegaly with chronic bladder outlet obstruction. [facility] will be notified. Impression & Plan ARF (acute renal failure), Bigeminy, Enlarged prostate, Anemia Critical Care Time Critical Care Time: Yes Total Critical Care Time: 47 I have personally spent greater than 47 minutes of critical care time in the direct management of this patient. This includes bedside care, interpretation of diagnostic studies, and testing, discussion with consultants, patient, and family members, and other required patient management activities. This 47 minutes is in excess of all separately billable procedures. Discharge Plan Visit Data Chief Complaint: Abnormal Labs/Diagnostic Testing Stated Complaint: SENT BY , ABNORMAL LABS ED Provider: Bernabe Ortiz Discharge Problem: ARF (acute renal failure), Bigeminy, Enlarged prostate, Anemia Patient Disposition: Admitted As Inpatient Forms Stand Alone Forms: My [facility] Prescriptions Prescriptions: No Action No Known Home Medications Referrals Referrals: PCP,NO [Primary Care Provider] -
[2022-08-04] MEDS ORDERED: TAMSULOSIN HCL 0.4 MG CAP PO ONE (17:13)
--- NOTE | 2022-08-04 17:20 | History & Physical Report ---
Date of Service August 04, 2022 Assessment & Plan (1) Enlarged prostate: Plan: Prostatomegaly with chronic bladder outlet obstruction noted on his CT abd/pelvis DDX: BPH vs. cancer - Bahena placed- this is likely the cause of his ARF at this time - draining adequate amount of light urine - initiate Flomax 0.4 mg now and then daily - no pain - urology follow up likely beneficial- consider PSA (2) Bigeminy: Plan: Patient rhythm with frequent PVC and now bigeminy in the setting of HTN - without chest pain or ST elevation, no syncope, lungs clear - electrolytes are stable with K >4 and Mg > 2.0 - no other ECG for evaluation - likely cause at this time is likely LVH - ECHO in am - Initiate BB at this time with Metoprolol Tartrate 25mg then q AM (3) Anemia: Plan: Anemia unspecified- does not appear acute/chronic blood loss at this time DDX: Iron deficiency vs. occult loss vs. renal failure vs. 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 - Multiple etiologies at this time to include outflow obstruction and strong suspicion of pre-renal etiology from cardiac failure involvment - diurese in morning if able - electrolytes stable and he is making urine - UA is with blood and protein - should improve in morning following Bahena placement - HCO3 17 (5) Dyspnea: Plan: likely multifactorial at this time as with anemia as well as evidence of pleural effusion, orthopnea and peripheral edema - Likely has some evidence of heart failure not diagnosed with possible effect from untreated HTN - ECHO in am - Hold on diuresing at this time as urine output already brisk - BNP >4700 - Pulmonary edema on CXR - Diurese with Lasix 20mg IV x1 (6) Edema: Plan: As above multifactorial with strong suspicion of element of heart failure not diagnosed at this time (7) HTN (hypertension): Plan: As above - hope to lower with BB and relief of bladder obstruction - renal dose medications (8) Osteoarthritis: Plan: hx of pain controlled and no acute issues History of Present Illness Primary Care Provider: NO PCP 72 YOM with medical history of: Osteoarthritis, hip replacement, decrease food intake. Patient comes to the EMD today for complaints of fatigue, dyspnea. 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 ECG was done revealing frequent PVC and telemetry revealing bi-geminy. Patient had CT scan of the abdomen performed, noting enlarged prostate with bladder outlet obstruction. He was typed and crossmatched, Bahena placed to gravity and UA sent. Hospitalist was consulted for admission. Patient does not routinely follow with physician and he is not on any medications. He previously had hip replacement in 2020. He just reports being more dyspneic throughout the day but getting worse when he lays flat, he also has noticed increase in peripheral edema of his feet that gets less when he gets up in the morning. He notes that his appetite has been decreasing over the past month or so and he is not eating as much. For his urination he notes that he has been going more frequently but is without pain, feels as he is emptying his bladder, notes no blood in his urine. He has no abdominal pain or burning and no change to his stools color. He does endorse family history of iron deficiency. He has never had EGD or Colonoscopy performed and has not seen a urologist. COVID test on admission is: NEGATIVE Allergies Allergy/AdvReac Type Severity Reaction Status Date / Time No Known Allergies Allergy Verified 08/04/22 18:02 Home Medications Medication Instructions Recorded Confirmed Type No Known Home Medications 08/04/22 08/04/22 History Past Med/Surg History Medical History (Updated 08/04/22 @ 18:24 by KRISTIN Kohler) Osteoarthritis Surgical History (Updated 08/04/22 @ 18:00 by KRISTIN Kohler) History of herniorrhaphy Inguinal hernia (done under local) History of hip replacement History of tooth extraction Family History (Updated 08/04/22 @ 18:00 by KRISTIN Kohler) Other Anemia No family history of adverse response to anesthesia Denies family history of Heart disease Cancer Social History Smoking Status: Never smoker Second Hand Exposure: No; Hx Alcohol Use: No Hx Substance Use: No Preferred Language: South African Communication Ability: Effective 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 Beliefs That Will Affect Care: None marital status: Current Living Situation: Spouse Current Living Situation Comment: AND 2 DAUGHTERS Other Information That Helps Us Care for You: No Feels Safe at Home: Yes Safety Concerns: Feels Safe At This Time Assistive Devices: Glasses Review of Systems Review of Systems: REVIEW OF SYSTEMS: Constitutional: (+) fatigue, No fever, sweats or chills Eyes: No diplopia, no worsening or blurred vision ENT: normal hearing, no trouble swallowing Respiratory: (+) dyspnea with exertion, orthopnea, edema, No cough, sputum, dyspnea at rest or on exertion Cardiovascular: No chest pain, tightness or palpitations Abdomen: No pain, nausea, vomiting, diarrhea or constipation Musculoskeletal: No joint pain, calf pain, swelling Neurologic: No weakness, numbness/tingling, or balance problems Psychiatric: No anxiety or depression Skin: No rash or itch Physical Exam Physical Exam: PHYSICAL EXAM: General: awake, alert, no apparent distress Head: Normocephalic, atraumatic ENT: PERRL, EOMI, no pharyngeal exudate, mucous membranes moist, conjunctiva pale, tongue normal Neuro: AAO x 3, speech clear and appropriate, strength intact bilaterally 5/5, sensation intact and equal all extremities and dermatomes, no pronator drift Chest: equal rise and fall of the chest, no accessory muscle use, no heaves or thrills, Clear to auscultation, on room air, Cardiac: irregular rate and rhythm, telemetry reviewed- bigeminy, skin warm dry, cap refill <3 seconds, peripheral pulses +2 no JVD, no murmur, pitting edema bilateral lower extremities to midshin GI: NABS x 4 quadrants, soft, nontender to palpation, no rebound, guarding or tenderness : Bahena placed draining dilute yellow urine, no bladder pain, Extremities: Normal inspection, no peripheral edema or erythema, calfs nontender to palpation Psych: Normal mood and affect Skin: no rash or erythema Results & Data Results & Data ([facility]) Vital Signs (Past 12 Hours) Vital Signs Temp Pulse Pulse Resp BP Pulse Ox O2 Del Method 08/04/22 15:34 79 14 95 Room Air 08/04/22 12:38 36.5 C 56 L 17 202/85 H 98 Room Air Laboratory Results Abnormal lab results 09/07/1808/04/22 08/04/22 Range/Units 13:25 13:25 15:21 RBC 2.60 L (4.63-6.08) M/uL Hgb 7.8 L (14.0-18.0) g/dl Hct 24.6 L (40.1-51.0) % MCHC 31.7 L (32.0-36.0) g/dL RDW Std Deviation 48.0 H (36.4-46.3) fL MPV 13.0 H (9.4-12.4) fL Chloride 111 H (98-107) mmol/L Carbon Dioxide 17 L (21-32) mmol/L BUN 72 H (6-23) mg/dl Creatinine 5.44 H* (0.6-1.4) mg/dl Calcium 8.4 L (8.5-10.1) mg/dl Urine Protein (Negative) Urine Blood (Negative) Urine RBC (Auto) (0-4) /hpf U Epithel Cells (Auto) (0-5) /lpf Crossmatch See Detail 08/04/22 Range/Units 17:00 RBC (4.63-6.08) M/uL Hgb (14.0-18.0) g/dl Hct (40.1-51.0) % MCHC (32.0-36.0) g/dL RDW Std Deviation (36.4-46.3) fL MPV (9.4-12.4) fL Chloride (98-107) mmol/L Carbon Dioxide (21-32) mmol/L BUN (6-23) mg/dl Creatinine (0.6-1.4) mg/dl Calcium (8.5-10.1) mg/dl Urine Protein 3+ H (Negative) Urine Blood 3+ H (Negative) Urine RBC (Auto) >30 H (0-4) /hpf U Epithel Cells (Auto) 10-20 H (0-5) /lpf Crossmatch Diagnostic Findings Abdomen/Pelvis CT 08/04/22 15:14 CT SCAN OF THE ABDOMEN AND PELVIS WITHOUT IV CONTRAST CLINICAL HISTORY: Acute renal insufficiency. COMPARISON STUDY: Lumbar spine radiographs dated 06/17/2021. TECHNIQUE: CT scan of the abdomen and pelvis is performed from the lung bases to the proximal femora. Images are reviewed in the axial, sagittal, and coronal planes. IV contrast was not administered for this examination. A dose lowering technique was utilized adhering to the principles of ALARA. CT DOSE: 477.70 mGy.cm FINDINGS: Lung bases: The heart is in the large and without pericardial effusion. There are scattered coronary artery calcifications. There is diminished attenuation of the cardiac blood pool as compared to the myocardium suggesting anemia. There are small pleural effusions with dependent consolidation. Emphysematous change is suspected. Parenchymal scarring is seen at both lung bases. A 1.2 cm calcification-containing nodule is seen in the lingula on image #43. A calcified granuloma seen at the right lung base. Liver: The unenhanced liver is normal in size, contour, and attenuation. There is no intrahepatic biliary ductal dilatation. Scattered hepatic cysts measure up to 17 mm. Gallbladder: There are tiny calcified gallstones without CT evidence of acute cholecystitis. Spleen: Normal in size and attenuation. Pancreas: The unenhanced pancreas is moderately atrophic and grossly unremarkable. Adrenal glands: Unremarkable. Kidneys: The unenhanced kidneys are atrophic and without hydronephrosis. There are no renal calculi identified. A 1.9 cm cyst is noted in the left kidney. Abdominal vasculature: The abdominal aorta is normal in course and caliber noting mild atherosclerotic calcification. Bowel: There is moderate to advanced colonic diverticulosis without CT evidence of acute diverticulitis. No bowel obstruction is seen. The appendix is well- visualized and normal. Peritoneum: There is no intraperitoneal free air or abdominal ascites. There is a fat-containing umbilical hernia. Lymphadenopathy: None. Pelvic viscera: Evaluation of the pelvis is degraded by streak artifact from a left hip arthroplasty. The prostate gland is enlarged and heterogeneous noting median lobe hypertrophy. The bladder is distended, and the wall appears thickened/trabeculated indicating chronic outlet obstruction. There are large left and small right-sided hydroceles. There is evidence of previous left inguinal herniorrhaphy. A small fat-containing inguinal hernia is noted on the right. Skeletal structures: The skeletal structures are osteopenic. There is moderate lumbosacral spondylosis. No lytic or blastic lesions are seen. A left hip arthroplasty is in place. Arthritic change is seen in the right hip. IMPRESSION: 1. No acute infectious or inflammatory findings are identified in the abdomen or pelvis. 2. Cardiomegaly and small pleural effusions. 3. Colonic diverticulosis without CT evidence of acute diverticulitis. 4. Prostatomegaly with evidence of chronic bladder outlet obstruction. 5. Large left and small right hydroceles. 6. Cholelithiasis. 7. Additional findings as above. ACT 112: Negative or not required by law. Electronically signed by: Samy Chester M.D. 08/04/2022 4:58 PM Medications Administered Home Medications No Known Home Medications 08/04/22 [History Confirmed 08/04/22] Active Medications Sodium Chloride (Nss) 250 mls @ 15 mls/hr IV .[id number] PRN PRN Reason: For Transfusion Stop: 08/05/22 01:26 ECG Additional Comments: Sinus rythm with frequent PVC possible left atrial enlargement, Left ventricular hypertrophy with repolarization abnormality Code Status & VTE Plan Code Status CODE: DNR/DNI VTE: SCDS, hold chemoprophy ensure not bleeding Supervising Physician Co-Signing Physician Notes I supervised KRISTIN Bishop on this admission. I interviewed and examined the patient independently of him. The plan is as written in his note except for any following changes/exceptions: None 72yo M w/ no major PMH who presents with renal failure and anemia. Has been doing well until the last 2 weeks or so with extra fatigue and dyspnea. Got labs today at the Urgent Care and was sent in. I think renal failure likely mostly due to post-renal obstruction with BPH. Bahena now draining clear urine, will trend Cr. Anemia like CKD and some iron deficiency. No overt GI bleed reported. Will get 1 unit of blood, trend. Can give further blood or iron if needed. Patient in bigeminy in the ER. Will start beta-nimco and monitor. PG Care Time/CCT Total # of Minutes Spent Total Time Spent with Patient: Total time spent is greater than 50% in coordination of care (as documented) at patient's floor/unit and/or counseling patient: Coding Level of Care Code 61115 Initial Inpt Care Lvl 3 Diagnoses Enlarged prostate N40.0 Bigeminy I49.8 Anemia D64.9 ARF (acute renal failure) N17.9 Dyspnea R06.00 Edema R60.9 HTN (hypertension) I10 Osteoarthritis M19.90
[2022-08-04 17:43] LABS: Appearance Urine Clear (Clear); Bacteria Urine Automated Negative (Negative); Bilirubin Urine Negative (Negative); Blood Urine 3+ (Negative); Color Urine Yellow; Glucose Urine UA Negative (Negative); Ketones Urine Negative (Negative); Leukocyte Esterase Urine Negative (Negative); Nitrite Urine Negative (Negative); Protein Urine 3+ (Negative); RBC Urine Automated >30 /hpf (0-4); Specific Gravity Urine 1.012 (1.000-1.030); Urobilinogen Urine Negative (Negative); pH Urine 5.5 (4.5-7.5)
[2022-08-04 18:07] LABS: Magnesium 2.1 mg/dl (1.7-2.4)
[2022-08-04] MEDS ORDERED: METOPROLOL TARTRATE 25 MG TAB PO ONE (18:07)
[2022-08-04] MEDS ORDERED: FUROSEMIDE INJ 20 MG/2 ML VIAL IV ONE (18:39)
--- NOTE | 2022-08-04 18:48 | XRay Report ---
XR chest 1V portable CLINICAL HISTORY: dyspnea, eval heart size/pulmonary edema TECHNIQUE: Single frontal radiograph of the chest was obtained. Comparison: Comparison is made to chest radiograph 07/21/[address] abdomen pelvis 08/04/2022 FINDINGS: No lines and tubes are seen. Cardiomegaly is noted. Prominence and cephalization of the vasculature i s seen. There is an 11 mm density in the left lower lung. This corresponds to a calcified granuloma s een on prior CT. There are small bilateral pleural effusions. IMPRESSION: Cardiomegaly with mild pulmonary edema. Likely small bilateral pleural effusions. ACT 112: Negative or not required by law. Electronically signed by: Franki Bang M.D. 08/04/2022 6:46 PM
[2022-08-04] MEDS ORDERED: ACETAMINOPHEN 325 MG TAB PO PRN (19:35)
[2022-08-04] MEDS ORDERED: ONDANSETRON INJ 2 MG/ML 2 ML VIAL IV PRN (19:35)
[2022-08-05 06:01] LABS: Hematocrit (blood only) 24.9 % (40.1-51.0); Hemoglobin 7.8 g/dl (14.0-18.0); Mean Corpuscular Hemoglobin 29.3 pg (25.0-34.0); Mean Corpuscular Hgb Conc 31.3 g/dL (32.0-36.0); Mean Corpuscular Volume 93.6 fL (80.0-100.0); RDW Coefficient of Variation 13.8 % (11.5-14.5); RDW Standard Deviation 46.7 fL (36.4-46.3); Red Blood Count 2.66 M/uL (4.63-6.08); White Blood Count 6.22 K/ul (4.8-10.8)
[2022-08-05 06:40] LABS: Mean Platelet Volume 13.1 fL (9.4-12.4); Platelet Count 141 K/uL (130-400)
[2022-08-05 06:44] LABS: Basophils # (auto) 0.06 K/uL (0-0.2); Eosinophils # (auto) 0.14 K/uL (0-0.50); Eosinophils % (auto) 2.3 %; Immature Granulocytes # (auto) 0.02 K/uL (0.00-0.02); Immature Granulocytes % (auto) 0.3 %; Lymphocytes # (auto) 1.26 K/uL (1.2-3.4); Lymphocytes % (auto) 20.3 %; Monocytes # (auto) 0.66 K/uL (0.24-0.82); Monocytes % (auto) 10.6 %; Neutrophils # (auto) 4.08 K/uL (1.4-6.5); Neutrophils % (auto) 65.5 %; Ovalocytes 1+; Schistocytes 1+
[2022-08-05 06:54] LABS: Folate (Folic Acid) 13.96 ng/ml (>5.38)
[2022-08-05 07:02] LABS: BUN Creatinine Ratio 13.2 (10-20); Creatinine Clr Calc Pharmacy 11.7 ml/min; Est GFR (African American) 11.2 ml/min; Est GFR (Non-African American) 9.7 ml/min; Potassium 4.7 mmol/L (3.5-5.1)
[2022-08-05] MEDS: TAMSULOSIN HCL 0.4 MG CAP PO SCH (08:05)
[2022-08-05] MEDS ORDERED: METOPROLOL TARTRATE 25 MG TAB PO SCH ×2 (09:00→21:00)
--- NOTE | 2022-08-05 09:14 | XCELERA ---
[id number]
--- NOTE | 2022-08-05 09:24 | Electrocardiogram Report ---
Test Reason : Blood Pressure : / mmHG Vent. Rate : 075 BPM Atrial Rate : 075 BPM P-R Int : 182 ms QRS Dur : 088 ms QT Int : 418 ms P-R-T Axes : 054 002 114 degrees QTc Int : 466 ms Sinus rhythm with frequent Premature ventricular complexes Possible Left atrial enlargement Left ventricular hypertrophy with repolarization abnormality Abnormal ECG When compared with ECG of 21-JUL-2021 09:18, Premature ventricular complexes are now Present T wave inversion now evident in Lateral leads QT has lengthened Confirmed by Xiang Mckenna ([id number]) on 08/05/2022 9:24:19 AM Referred By: Sanya Magana Confirmed By:Xiang Mckenna
--- NOTE | 2022-08-05 10:07 | Electrocardiogram Report ---
Test Reason : Blood Pressure : / mmHG Vent. Rate : 069 BPM Atrial Rate : 069 BPM P-R Int : 158 ms QRS Dur : 080 ms QT Int : 424 ms P-R-T Axes : 038 015 121 degrees QTc Int : 454 ms Poor data quality, interpretation may be adversely affected Sinus rhythm with frequent Premature ventricular complexes Left ventricular hypertrophy with repolarization abnormality Abnormal ECG When compared with ECG of 04-AUG-2022 13:10, No significant change was found Confirmed by Xiang Mckenna ([id number]) on 08/05/2022 10:06:56 AM Referred By: Sanya Magana Confirmed By:Xiang Mckenna
--- NOTE | 2022-08-05 10:33 | Nephrology Consultation ---
Date of Consultation August 05, 2022 Assessment & Plan (1) ARF (acute renal failure): (2) Anemia: (3) BPH (benign prostatic hyperplasia): (4) Edema: (5) Dyspnea: (6) Metabolic acidosis: Plan 72 year-old gentlemen present with dyspnea, edema and volume overload and found to have NIKOS with creatinine 4.8 with baseline creatinine a year ago 1.2. CT A/P showed enlarged prostate and bladder wall appears thickened/trabeculated indicating chronic outlet obstruction, no hydronephrosis but generally kidneys were relatively atrophic. Urinalysis with 3+ proteinuria 3+ hematuria and more than 30 RBC with no WBC or bacteriuria. Differentials for NIKOS is broad including acute glomerulonephritis considering significant proteinuria, hematuria and elevated blood pressure, cannot exclude possibility for paraproteinemia considering anemia, NIKOS and advanced age. No postrenal obstruction. However, there is certainly possibility for underlying advanced CKD. -- Will check urine protein creatinine ratio, order serology and paraproteinemia workup -- monitor electrolyte and volume status, accurate measurement of intake and output. If urine output drops, worsening volume status or progressive worsening renal function, may need renal replacement therapy in near future. Discussed with pt and , he is not sure at this time but open to discuss with family -- start on lasix 40 mg daily -- Dose medications for eGFR less than 10, continue to avoid all nephrotoxic medications. -- check iron study, PTH, Phos Will follow Thank you for allowing me to participate in your patient's care. It was a pleasure to see Mr. Mackenzie History of Present Illness Reason for Consultation: Acute kidney injury, anemia and metabolic acidosis. Attending Physician: Brook Field MD History of Present Illness 72 y o gentlemen with past medical history significant for hypertension,osteoarthritis, BPH admitted to the hospital yesterday with NIKOS after he presented with fatigue, dyspnea and weight gain over last few weeks. Nephrology consult was requested to manage NIKOS, Metabolic acidosis. EMR records were reviewed in detail during patient's visit. His Joyce was at bedside. Mr. Mackenzie presented to ER yesterday with complaints of fatigue, dyspnea. On Admission labs showed NIKOS, Cr 5.4, metabolic acidosis and anemia. Prior cr in June 2021 was 1.2, no labs in between. He reports voiding more frequently with low volume, emptying his bladder, no dysuria, hematuria UA with 3 + Protein and 3+ blood, no bacteria, no WBC. Hb was 7.8. CT A/P without contrast noted enlarged prostate with bladder outlet obstruction but no hydronephrosis.Bahena placed to gravity. ECG was done revealing frequent PVC and telemetry revealing bi-geminy. CXR with pulmonary congestion. Has been feeling more dyspneic which gets worse when he lays flat, and noticed increased edema of his feet. His appetite has been decreasing over the past month or so and has not eating as much. Has not been following with PCP, not taking any medications.He has never had EGD or Colonoscopy performed and has not seen a urologist. He previously had hip replacement in 2020. Overall feeling slightly better but continues to have SOB. Allergies Allergy/AdvReac Type Severity Reaction Status Date / Time No Known Allergies Allergy Verified 08/04/22 18:02 Home Medications Medication Instructions Recorded Confirmed Type No Known Home Medications 08/04/22 08/04/22 History Patient History Medical History (Updated 08/05/22 @ 10:34 by Sunita Foster MD) Metabolic acidosis Osteoarthritis Surgical History (Updated 08/04/22 @ 18:00 by KRISTIN Kohler) History of herniorrhaphy Inguinal hernia (done under local) History of hip replacement History of tooth extraction Family History (Updated 08/04/22 @ 18:00 by KRISTIN Kohler) Other Anemia No family history of adverse response to anesthesia Denies family history of Heart disease Cancer Social History Smoking Status: Never smoker Second Hand Exposure: No; Hx Alcohol Use: No Hx Substance Use: No Preferred Language: Korean Communication Ability: Effective 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 Physical Exam Constitutional: WD/WN, vitals as above no acute distress Eyes: + anicteric sclerae ENMT: Ears: no hearing impairment and no external ear abnormality Nose: n josé mucous membranes not dry Neck: normal visual inspection Respiratory: Auscultation: + crackles Cardiovascular: Rate/Rhythm: regular rate and regular rhythm Heart Sounds: normal S1 and normal S2 Extremities: + edema Gastrointestinal (Abdomen): Inspection/Auscultation: abdomen normal to inspection and normal bowel sounds Percussion/Palpation: abdomen soft; abdomen nontender Musculoskeletal: Extremities: extremities normal to inspection Skin: no rashes Neurologic: no focal motor deficits and not confused Psychiatric: Orientation: alert and oriented x 3 Affect: euthymic affect Results & Data ([facility]) Vital Signs (Past 12 Hours) Vital Signs Temp Pulse Pulse Resp BP Pulse Ox O2 Del Method 08/05/22 05:51 66 08/05/22 07:47 36.5 C 72 19 172/81 H 95 Room Air 08/05/22 03:00 37 C 70 16 150/79 H 95 Room Air 08/04/22 23:00 77 08/04/22 22:48 37 C 77 18 172/80 H 95 Room Air PG Care Time/CCT Total # of Minutes Spent Total Time Spent with Patient: Total time spent is greater than 50% in coordination of care (as documented) at patient's floor/unit and/or counseling patient: Coding Level of Care Code 75268 Inpt Consult Level 5 Diagnoses ARF (acute renal failure) N17.9 Anemia D64.9 BPH (benign prostatic hyperplasia) N40.0 Edema R60.9 Dyspnea R06.00 Metabolic acidosis E87.2
[2022-08-05] MEDS: IRON SUCROSE 300 MG in SODIUM CHLORIDE 0.9% 250 ML IV SCH (10:51)
--- NOTE | 2022-08-05 14:49 | Hospitalist Progress Note ---
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 Difficult to say how long this has been going on but seems to have had symptoms of dyspnea and LE edema for the last 4-5 months With associated metabolic acidosis With enlarged prostate on CT but no hydronephrosis-does not seem that post-renal failure is the cause UA with 3+ protein, 3+ blood, no evidence of infection Bahena catheter placed and not much improvement overnight Appreciate nephrology consultation-could be acute glomerulonephritis, paraproteinemia, or underlying advanced CKD -check urine protein creatinine ratio, order serology and paraproteinemia workup -check iPTH, Phos as per Nephro; iron studies already performed and low -follow BMP, UOP, BPs, volume status -broached the topic of dialysis but not needed at this time-hopeful for some renal recovery -due to persistent volume overload-start on lasix 40 mg IV x 1 now and dose daily based on response and renal function -avoid nephrotoxins, renally dose all medications (2) Bigeminy: Plan: with frequent PVC and bigeminy - without chest pain or ST elevation, no syncope - electrolytes are stable with K >4 and Mg > 2.0 - no other ECG for evaluation ECHO with mildly reduced EF 40-45%, global hypokinesis, mild LVH, mild-mod MR, mod Pulm HTN -Appreciate Cardiology consultation -metoprolol started on admission--> will increase to 50mg po bid for this evening and plan to switch to Toprol XL on discharge once titrated up to proper dosing -monitor on tele (3) Anemia: Plan: Anemia mixed of iron deficiency and of chronic kidney disease--> presented with hgb 7.8 Transferrin sat low at 13%--> give Venofer 300mg IV daily x 3 days and then plan to give epo - he denies any UGI symptoms or changes in stools-fecal occult here is negative - b12 and folate normal, TSH normal - platelet and WBC counts normal - transfused 1 unit prbc and hgb still only 7.8 today - will need po FeSO4 on discharge -follow CBC (4) HTN (hypertension): Plan: BPs significantly elevated -started metoprolol and titrate up could add on amlodipine if needed (5) Cardiomyopathy: Plan: newly diagnosed, EF 40-45% mildly reduced, global hypokinesis no angina or ischemic changes on ECG appreciate Cardiology consultation -could be related to frequent PVCs -plan to start Toprol XL on discharge cannot start ACEi or ARB due to NIKOS follow as outpt with Cardiology (6) Enlarged prostate: Plan: Prostatomegaly with chronic bladder outlet obstruction noted on his CT abd/pelvis DDX: BPH vs. cancer - Bahena placed due to this in setting of NIKOS - draining adequate amount of light urine - initiate Flomax 0.4 mg daily PSA here minimally elevated at 4 -keep Bahena for now and suggest Urology outpatient follow up (7) HFrEF (heart failure with reduced ejection fraction): Plan: as above, with chronic HFrEF volume overload due to NIKOS (8) Hypervolemia: Plan: secondary to NIKOS giving lasix monitor I/Os changed diet to low sodium, 1500mL fluid restriction, renal diet (9) Metabolic acidosis: Plan: due to NIKOS, serum HCO3 17-18 start NaHCO3 650mg po bid follow BMP Plan DVT proph-add on heparin SQ Dispo-continued stay PCU discussed all care with and daughter at bedside Admission and Anticipated Discharge Date Admission Date: August 04, 2022 Subjective Pt reports feeling a little bit better than when he came in. He has gradually noticed increased RAIN and LE edema over the last 6 months since he had a bad URI in 12/2021 that may have been COVID (did not get tested). Then symptoms especially worse in the last 2-3 weeks. No Chest pains now or ever. No abd pain, no weight gain he is aware of although does not weigh himself. No bowel or bladder habit changes. No nausea or headaches, no back pain. He is making urine here with Bahena in place. No hematuria now or ever. Discussed care with Nephro and Cardiology Tele with NSR, frequent PVCs, bigeminy Review of Systems Review of Systems: All systems reviewed & are unremarkable except as noted in HPI & below Physical Exam Constitutional: WD/WN, vitals as above ENMT: external ear and nose normal, oropharynx normal Neck: trachea midline, no thyromegaly Respiratory: normal respiratory effort; no cough Auscultation: + crackles (bibasilar); no rhonchi and no wheezes Cardiovascular: Rate/Rhythm: regular rate and regular rhythm Heart Sounds: + murmur (2/6 systolic murmur at apex) Vessels: dorsalis pedis pulses present (1+) Extremities: + edema (1+ edema legs bilat to mid tibia) Chest (Breasts): Chest: normal inspection of chest Gastrointestinal (Abdomen): normal bowel sounds, soft, nontender, no hepatosplenomegaly Musculoskeletal: Extremities: extremities normal to inspection; no cyanosis and no clubbing Skin: no rashes, warm and dry Neurologic: moves all extremities and awake; no focal motor deficits Psychiatric: A+Ox3, euthymic affect Genitourinary: Bahena in place draining clear, yellow urine Results & Data Results & Data ([facility]) Vital Signs (Past 12 Hours) Vital Signs Temp Pulse Pulse Resp BP Pulse Ox O2 Del Method 08/05/22 10:56 36.7 C 67 16 142/94 H 97 Room Air 08/05/22 05:51 66 08/05/22 07:47 36.5 C 72 19 172/81 H 95 Room Air 08/05/22 03:00 37 C 70 16 150/79 H 95 Room Air Laboratory Results 08/05/22 08/05/22 08/05/22 Range/Units 17:30 17:30 16:45 WBC (4.8-10.8) K/ul RBC (4.63-6.08) M/uL Hgb (14.0-18.0) g/dl Hct (40.1-51.0) % MCV (80.0-100.0) fL MCH (25.0-34.0) pg MCHC (32.0-36.0) g/dL RDW Std Deviation (36.4-46.3) fL RDW Coeff of Tobin (11.5-14.5) % Plt Count (130-400) K/uL MPV (9.4-12.4) fL Immature Gran % (Auto) % Neut % (Auto) % Lymph % (Auto) % [place] % (Auto) % Eos % (Auto) % Baso % (Auto) % Neut # (Auto) (1.4-6.5) K/uL Lymph # (Auto) (1.2-3.4) K/uL [place] # (Auto) (0.24-0.82) K/uL Eos # (Auto) (0-0.50) K/uL Baso # (Auto) (0-0.2) K/uL Immature Gran # (Auto) (0.00-0.02) K/uL Ovalocytes Schistocytes Sodium (136-145) mmol/L Potassium (3.5-5.1) mmol/L Chloride (98-107) mmol/L Carbon Dioxide (21-32) mmol/L Anion Gap (3-11) BUN (6-23) mg/dl Creatinine (0.6-1.4) mg/dl Est Cr Clr Drug Dosing ml/min Est GFR ( Amer) ml/min Est GFR (Non-Af Amer) ml/min BUN/Creatinine Ratio (10-20) Glucose (70-99(Fasting)) mg/dl Calcium (8.5-10.1) mg/dl Ionized Calcium (1.12-1.32) mmol/L Magnesium (1.7-2.4) mg/dl Ferritin (8-388) ng/ml Prostate Specific Ag (0-4) ng/ml Vitamin B12 (180-914) pg/ml Folate (>5.38) ng/ml TSH (0.300-4.500) uIu/ml Ur Random Creatinine 31.6 mg/dl U Random Total Protein Pending 158.1 H (0-11.9) mg/dl Ur Creatinine mg/dL Pending Protein/Creatinin Ratio Pending 5.0 H (0-0.2) Urine Albumin (%) Pending U Bteak-0-Pxxzatqh (%) Pending U Cbgzv-7-Oufhoukd (%) Pending U Beta Globulin (%) Pending U Gamma Globulin (%) Pending U Abnormal Prot Band 1 Pending U Abnormal Prot Band 2 Pending U Abnormal Prot Band 3 Pending Urine PEP Interpret Pending Stool Occult Bld Scrn Negative (Negative) POC Stool Occult Blood MARY Screen Anti-Proteinase 3 Anti-Myeloperoxidase ANCA Glomerular Base Memb Ab Complement C3 Complement C4 Free [place] LC, Quant Free Lambda LC, Quant Free [place]/Lambda Ratio Crossmatch 08/05/22 08/05/22 08/05/22 Range/Units 16:17 05:38 05:38 WBC (4.8-10.8) K/ul RBC (4.63-6.08) M/uL Hgb (14.0-18.0) g/dl Hct (40.1-51.0) % MCV (80.0-100.0) fL MCH (25.0-34.0) pg MCHC (32.0-36.0) g/dL RDW Std Deviation (36.4-46.3) fL RDW Coeff of Tobin (11.5-14.5) % Plt Count (130-400) K/uL MPV (9.4-12.4) fL Immature Gran % (Auto) % Neut % (Auto) % Lymph % (Auto) % [place] % (Auto) % Eos % (Auto) % Baso % (Auto) % Neut # (Auto) (1.4-6.5) K/uL Lymph # (Auto) (1.2-3.4) K/uL [place] # (Auto) (0.24-0.82) K/uL Eos # (Auto) (0-0.50) K/uL Baso # (Auto) (0-0.2) K/uL Immature Gran # (Auto) (0.00-0.02) K/uL Ovalocytes Schistocytes Sodium (136-145) mmol/L Potassium (3.5-5.1) mmol/L Chloride (98-107) mmol/L Carbon Dioxide (21-32) mmol/L Anion Gap (3-11) BUN (6-23) mg/dl Creatinine (0.6-1.4) mg/dl Est Cr Clr Drug Dosing ml/min Est GFR ( Amer) ml/min Est GFR (Non-Af Amer) ml/min BUN/Creatinine Ratio (10-20) Glucose (70-99(Fasting)) mg/dl Calcium (8.5-10.1) mg/dl Ionized Calcium (1.12-1.32) mmol/L Magnesium (1.7-2.4) mg/dl Ferritin (8-388) ng/ml Prostate Specific Ag 4.086 H (0-4) ng/ml Vitamin B12 (180-914) pg/ml Folate (>5.38) ng/ml TSH 2.268 (0.300-4.500) uIu/ml Ur Random Creatinine mg/dl U Random Total Protein (0-11.9) mg/dl Ur Creatinine mg/dL Protein/Creatinin Ratio (0-0.2) Urine Albumin (%) U Jewqs-4-Igiztbpv (%) U Ngpsn-2-Bemkrfbc (%) U Beta Globulin (%) U Gamma Globulin (%) U Abnormal Prot Band 1 U Abnormal Prot Band 2 U Abnormal Prot Band 3 Urine PEP Interpret Stool Occult Bld Scrn (Negative) POC Stool Occult Blood MARY Screen Pending Anti-Proteinase 3 Pending Anti-Myeloperoxidase Pending ANCA Pending Glomerular Base Memb Ab Pending Complement C3 Pending Complement C4 Pending Free [place] LC, Quant Pending Free Lambda LC, Quant Pending Free [place]/Lambda Ratio Pending Crossmatch 08/05/22 08/05/22 08/05/22 Range/Units 05:38 05:38 05:38 WBC 6.22 (4.8-10.8) K/ul RBC 2.66 L (4.63-6.08) M/uL Hgb 7.8 L (14.0-18.0) g/dl Hct 24.9 L (40.1-51.0) % MCV 93.6 (80.0-100.0) fL MCH 29.3 (25.0-34.0) pg MCHC 31.3 L (32.0-36.0) g/dL RDW Std Deviation 46.7 H (36.4-46.3) fL RDW Coeff of Tobin 13.8 (11.5-14.5) % Plt Count 141 (130-400) K/uL MPV 13.1 H (9.4-12.4) fL Immature Gran % (Auto) 0.3 % Neut % (Auto) 65.5 % Lymph % (Auto) 20.3 % [place] % (Auto) 10.6 % Eos % (Auto) 2.3 % Baso % (Auto) 1.0 % Neut # (Auto) 4.08 (1.4-6.5) K/uL Lymph # (Auto) 1.26 (1.2-3.4) K/uL [place] # (Auto) 0.66 (0.24-0.82) K/uL Eos # (Auto) 0.14 (0-0.50) K/uL Baso # (Auto) 0.06 (0-0.2) K/uL Immature Gran # (Auto) 0.02 (0.00-0.02) K/uL Ovalocytes 1+ Schistocytes 1+ Sodium (136-145) mmol/L Potassium (3.5-5.1) mmol/L Chloride (98-107) mmol/L Carbon Dioxide (21-32) mmol/L Anion Gap (3-11) BUN (6-23) mg/dl Creatinine (0.6-1.4) mg/dl Est Cr Clr Drug Dosing ml/min Est GFR ( Amer) ml/min Est GFR (Non-Af Amer) ml/min BUN/Creatinine Ratio (10-20) Glucose (70-99(Fasting)) mg/dl Calcium (8.5-10.1) mg/dl Ionized Calcium 1.21 (1.12-1.32) mmol/L Magnesium (1.7-2.4) mg/dl Ferritin (8-388) ng/ml Prostate Specific Ag (0-4) ng/ml Vitamin B12 381 (180-914) pg/ml Folate 13.96 (>5.38) ng/ml TSH (0.300-4.500) uIu/ml Ur Random Creatinine mg/dl U Random Total Protein (0-11.9) mg/dl Ur Creatinine mg/dL Protein/Creatinin Ratio (0-0.2) Urine Albumin (%) U Iqibk-9-Joctdnnw (%) U Adryw-4-Cqbuwwys (%) U Beta Globulin (%) U Gamma Globulin (%) U Abnormal Prot Band 1 U Abnormal Prot Band 2 U Abnormal Prot Band 3 Urine PEP Interpret Stool Occult Bld Scrn (Negative) POC Stool Occult Blood MARY Screen Anti-Proteinase 3 Anti-Myeloperoxidase ANCA Glomerular Base Memb Ab Complement C3 Complement C4 Free [place] LC, Quant Free Lambda LC, Quant Free [place]/Lambda Ratio Crossmatch 08/05/22 08/04/22 08/04/22 Range/Units 05:38 15:34 15:21 WBC (4.8-10.8) K/ul RBC (4.63-6.08) M/uL Hgb (14.0-18.0) g/dl Hct (40.1-51.0) % MCV (80.0-100.0) fL MCH (25.0-34.0) pg MCHC (32.0-36.0) g/dL RDW Std Deviation (36.4-46.3) fL RDW Coeff of Tobin (11.5-14.5) % Plt Count (130-400) K/uL MPV (9.4-12.4) fL Immature Gran % (Auto) % Neut % (Auto) % Lymph % (Auto) % [place] % (Auto) % Eos % (Auto) % Baso % (Auto) % Neut # (Auto) (1.4-6.5) K/uL Lymph # (Auto) (1.2-3.4) K/uL [place] # (Auto) (0.24-0.82) K/uL Eos # (Auto) (0-0.50) K/uL Baso # (Auto) (0-0.2) K/uL Immature Gran # (Auto) (0.00-0.02) K/uL Ovalocytes Schistocytes Sodium 139 (136-145) mmol/L Potassium 4.7 (3.5-5.1) mmol/L Chloride 113 H (98-107) mmol/L Carbon Dioxide 18 L (21-32) mmol/L Anion Gap 8 (3-11) BUN 71 H (6-23) mg/dl Creatinine 5.38 H* (0.6-1.4) mg/dl Est Cr Clr Drug Dosing 11.7 ml/min Est GFR ( Amer) 11.2 ml/min Est GFR (Non-Af Amer) 9.7 ml/min BUN/Creatinine Ratio 13.2 (10-20) Glucose 89 (70-99(Fasting)) mg/dl Calcium 8.0 L (8.5-10.1) mg/dl Ionized Calcium (1.12-1.32) mmol/L Magnesium 2.0 (1.7-2.4) mg/dl Ferritin 173.0 (8-388) ng/ml Prostate Specific Ag (0-4) ng/ml Vitamin B12 (180-914) pg/ml Folate (>5.38) ng/ml TSH (0.300-4.500) uIu/ml Ur Random Creatinine mg/dl U Random Total Protein (0-11.9) mg/dl Ur Creatinine mg/dL Protein/Creatinin Ratio (0-0.2) Urine Albumin (%) U Rapab-4-Fxnpctix (%) U Nfegq-5-Jyxikwoy (%) U Beta Globulin (%) U Gamma Globulin (%) U Abnormal Prot Band 1 U Abnormal Prot Band 2 U Abnormal Prot Band 3 Urine PEP Interpret Stool Occult Bld Scrn (Negative) POC Stool Occult Blood Cancelled MARY Screen Anti-Proteinase 3 Anti-Myeloperoxidase ANCA Glomerular Base Memb Ab Complement C3 Complement C4 Free [place] LC, Quant Free Lambda LC, Quant Free [place]/Lambda Ratio Crossmatch See Detail PG Care Time/CCT Total # of Minutes Spent Total Time Spent with Patient: Total time spent is greater than 50% in coordination of care (as documented) at patient's floor/unit and/or counseling patient: Coding Level of Care Code 73616 Subseq Hosp Care Lvl 3 Diagnoses ARF (acute renal failure) N17.9 Bigeminy I49.8 Anemia D64.9 HTN (hypertension) I10 Cardiomyopathy I42.9 Enlarged prostate N40.0 HFrEF (heart failure with reduced ejection fraction) I50.20 Hypervolemia E87.70 Metabolic acidosis E87.2
[2022-08-05] MEDS ORDERED: FUROSEMIDE 40 MG/4 ML VIAL IV ONE (14:52)
[2022-08-05] MEDS: SODIUM BICARBONATE 650 MG TAB PO SCH ×2 (15:38→20:17)
--- NOTE | 2022-08-05 16:53 | Cardiology Consultation ---
Date of Consultation August 05, 2022 Assessment & Plan (1) Cardiomyopathy: (2) Frequent PVCs: (3) Pulmonary hypertension: (4) Mitral regurgitation: (5) Hypervolemia: (6) ARF (acute renal failure): Plan ASSESSMENT/PLAN: 1. Cardiomyopathy: Mildly reduced LV systolic function. Could be due to very frequent PVCs. Cannot exclude other causes. Ischemic evaluation not recommended at this time in the setting of acute renal failure. Recommend beta- nimco. Currently on metoprolol tartrate initiated within the past 24 hours. Would titrate while hospitalized to see if PVC burden improved. Recommend metoprolol succinate after titration completed or on discharge. LICHA-inhibitor contraindicated currently in the setting of acute renal failure. Likely hypervolemic in the setting of acute renal failure. Does not meet criteria for ICD for primary prevention. 2. Frequent PVCs: Could be contributing to reduced LV systolic function. Titrate beta-nimco as above to try to improve PVC burden. 3. Pulmonary hypertension: He is likely hypervolemic based on symptoms and acute renal failure. This should improve with diuresis. 4. Hypervolemia: Likely due to acute renal failure. Nephrology following. Lasix initiated today. Will defer volume management to Nephrology at this time. 5. Mitral regurgitation: Non severe. Can be followed as an outpatient. 6. Acute renal failure: As per Nephrology. 7. Anemia: As per primary hospitalist service. 8. Disposition: I will be away from the hospital for the next several days. Please call the on-call safe and vault mechanic for any questions or concerns. Plan of care communicated with Dr. Field of the primary hospitalist service. When discharged, can follow up in the outpatient setting in the [place] office which may be more convenient for patient travel, if patient agreeable. Thank you for allowing me to participate in the care of your patient. Please call for any other questions or concerns. Sincerely, Bernabe Mckenna M.D. History of Present Illness Reason for Consultation: CHF, bigeminy Requesting Physician: Brook Field MD Attending Physician: Brook Field MD History of Present Illness Mr. Mackenzie is a very pleasant 72-year-old gentleman with no significant cardiac history. He denies a formal diagnosis of dyslipidemia, hypertension, diabetes, CAD, CHF, or other cardiac disorder. He does not regularly follow with a PCP. He was hospitalized on 08/04/2022 after presenting with shortness of breath and fatigue. He has been noticing shortness of breath for the past couple of months but it worsened over the past 2 weeks or so. He has shortness of breath with exertion but also at rest, including orthopnea. His legs have been swollen. He has occasional lightheadedness with quick movements but denies syncope. He denies chest pain, melena, hematochezia, hematuria, or other bleeding. He has a history of palpitations since being a young child but believes it may be more frequent as an adult, but not overly bothersome to him. While here, he has been noted to have significant PVC burden, including frequent bigeminy. He was noted to have a creatinine of 5.44 on 08/04/2022. Previous creatinine on 07/21/2021 was 1.28. Nephrology has been consulted and is following. Lasix 40 mg IV given this afternoon. Review of systems: As above. Review of systems otherwise negative/unremarkable. Family history: Brother from presumed [place] at the age of 67. Social history: He denies smoking, alcohol, or drug abuse. He lives at home with his and 2 daughters. He has 12 children total. Approximately 60 grandchildren. He lives in [place]. He is Catholic. His and daughter were present at the bedside. Allergies Allergy/AdvReac Type Severity Reaction Status Date / Time No Known Allergies Allergy Verified 08/04/22 18:02 Home Medications Medication Instructions Recorded Confirmed Type No Known Home Medications 08/04/22 08/04/22 History Patient History Medical History (Updated 08/05/22 @ 17:00 by Xiang Mckenna MD) Osteoarthritis Surgical History (Updated 08/04/22 @ 18:00 by KRISTIN Kohler) History of herniorrhaphy Inguinal hernia (done under local) History of hip replacement History of tooth extraction Family History (Updated 08/04/22 @ 18:00 by KRISTIN Kohler) Other Anemia No family history of adverse response to anesthesia Denies family history of Heart disease Cancer Social History Smoking Status: Never smoker Second Hand Exposure: No; Hx Alcohol Use: No Hx Substance Use: No Preferred Language: Indonesian Communication Ability: Effective 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 Alert and oriented. HEENT: Anicteric sclera. Neck: Difficult neck exam due to thick galvez. No bruits. Normal carotid upstrokes bilaterally. Cardiac: PMI was nonpalpable. No ventricular heave. Regular with frequent ectopy. Normal S1-S2. No murmurs, rubs, or gallops. Pulmonary: Clear to auscultation bilaterally without wheezes, rales, or rhonchi. Abdomen: Soft, nontender, nondistended, with normoactive bowel sounds. No bruits noted. Extremities: 2+ radial pulses bilaterally. 2+ posterior tibialis pulses bilaterally. Trace bilateral lower extremity edema. No cyanosis. Psychiatric: Affect appears appropriate. Results & Data ([facility]) Vital Signs (Past 12 Hours) Vital Signs Temp Pulse Pulse Resp BP Pulse Ox O2 Del Method 08/05/22 15:15 36.6 C 67 20 161/78 H 97 Room Air 08/05/22 14:17 74 08/05/22 10:56 36.7 C 67 16 142/94 H 97 Room Air 08/05/22 05:51 66 08/05/22 07:47 36.5 C 72 19 172/81 H 95 Room Air Intake & Output 08/03/22 08/04/22 08/05/22 08/06/22 06:59 06:59 06:59 06:59 Intake Total 240 / 240 765 / 765 Output Total 1550 / 1550 450 / 450 Balance -1310 / -1310 315 / 315 Weight 174 lb 9.698 oz Laboratory Results Laboratory Results - last 24 hr 08/04/22 08/04/22 08/04/22 13:25 15:21 15:34 WBC RBC Hgb Hct MCV MCH MCHC RDW Std Deviation RDW Coeff of Tobin Plt Count MPV Immature Gran % (Auto) Neut % (Auto) Lymph % (Auto) Treasure % (Auto) Eos % (Auto) Baso % (Auto) Neut # (Auto) Lymph # (Auto) [place] # (Auto) Eos # (Auto) Baso # (Auto) Immature Gran # (Auto) Ovalocytes Schistocytes Sodium Potassium Chloride Carbon Dioxide Anion Gap BUN Creatinine Est Cr Clr Drug Dosing Est GFR ( Amer) Est GFR (Non-Af Amer) BUN/Creatinine Ratio Glucose Calcium Ionized Calcium Magnesium 2.1 Iron 30 L TIBC 231 L Unsaturated IBC 201 Transferrin % Sat 13 L Ferritin B-Natriuretic Peptide Prostate Specific Ag Vitamin B12 Folate TSH Urine Color Urine Appearance Urine pH Ur Specific [place] Urine Protein Urine Glucose (UA) Urine Ketones Urine Blood Urine Nitrite Urine Bilirubin Urine Urobilinogen Ur Leukocyte Esterase Urine WBC (Auto) Urine RBC (Auto) U Hyaline Cast (Auto) U Epithel Cells (Auto) Urine Bacteria (Auto) Stool Occult Bld Scrn POC Stool Occult Blood Cancelled MARY Screen Anti-Proteinase 3 Anti-Myeloperoxidase ANCA Glomerular Base Memb Ab Complement C3 Complement C4 Free [place] LC, Quant Free Lambda LC, Quant Free [place]/Lambda Ratio Blood Type O Positive Antibody Screen NEGATIVE Crossmatch See Detail 08/04/22 08/04/22 08/05/22 16:12 17:00 05:38 WBC RBC Hgb Hct MCV MCH MCHC RDW Std Deviation RDW Coeff of Tobin Plt Count MPV Immature Gran % (Auto) Neut % (Auto) Lymph % (Auto) Treasure % (Auto) Eos % (Auto) Baso % (Auto) Neut # (Auto) Lymph # (Auto) [place] # (Auto) Eos # (Auto) Baso # (Auto) Immature Gran # (Auto) Ovalocytes Schistocytes Sodium 139 Potassium 4.7 Chloride 113 H Carbon Dioxide 18 L Anion Gap 8 BUN 71 H Creatinine 5.38 H* Est Cr Clr Drug Dosing 11.7 Est GFR ( Amer) 11.2 Est GFR (Non-Af Amer) 9.7 BUN/Creatinine Ratio 13.2 Glucose 89 Calcium 8.0 L Ionized Calcium Magnesium 2.0 Iron TIBC Unsaturated IBC Transferrin % Sat Ferritin 173.0 B-Natriuretic Peptide > 4700 H Prostate Specific Ag Vitamin B12 Folate TSH Urine Color Yellow Urine Appearance Clear Urine pH 5.5 Ur Specific [place] 1.012 Urine Protein 3+ H Urine Glucose (UA) Negative Urine Ketones Negative Urine Blood 3+ H Urine Nitrite Negative Urine Bilirubin Negative Urine Urobilinogen Negative Ur Leukocyte Esterase Negative Urine WBC (Auto) 1-5 Urine RBC (Auto) >30 H U Hyaline Cast (Auto) 1-5 U Epithel Cells (Auto) 10-20 H Urine Bacteria (Auto) Negative Stool Occult Bld Scrn POC Stool Occult Blood MARY Screen Anti-Proteinase 3 Anti-Myeloperoxidase ANCA Glomerular Base Memb Ab Complement C3 Complement C4 Free [place] LC, Quant Free Lambda LC, Quant Free [place]/Lambda Ratio Blood Type Antibody Screen Crossmatch 08/05/22 08/05/22 08/05/22 05:38 05:38 05:38 WBC 6.22 RBC 2.66 L Hgb 7.8 L Hct 24.9 L MCV 93.6 MCH 29.3 MCHC 31.3 L RDW Std Deviation 46.7 H RDW Coeff of Tobin 13.8 Plt Count 141 MPV 13.1 H Immature Gran % (Auto) 0.3 Neut % (Auto) 65.5 Lymph % (Auto) 20.3 Treasure % (Auto) 10.6 Eos % (Auto) 2.3 Baso % (Auto) 1.0 Neut # (Auto) 4.08 Lymph # (Auto) 1.26 Treasure # (Auto) 0.66 Eos # (Auto) 0.14 Baso # (Auto) 0.06 Immature Gran # (Auto) 0.02 Ovalocytes 1+ Schistocytes 1+ Sodium Potassium Chloride Carbon Dioxide Anion Gap BUN Creatinine Est Cr Clr Drug Dosing Est GFR ( Amer) Est GFR (Non-Af Amer) BUN/Creatinine Ratio Glucose Calcium Ionized Calcium 1.21 Magnesium Iron TIBC Unsaturated IBC Transferrin % Sat Ferritin B-Natriuretic Peptide Prostate Specific Ag Vitamin B12 381 Folate 13.96 TSH Urine Color Urine Appearance Urine pH Ur Specific [place] Urine Protein Urine Glucose (UA) Urine Ketones Urine Blood Urine Nitrite Urine Bilirubin Urine Urobilinogen Ur Leukocyte Esterase Urine WBC (Auto) Urine RBC (Auto) U Hyaline Cast (Auto) U Epithel Cells (Auto) Urine Bacteria (Auto) Stool Occult Bld Scrn POC Stool Occult Blood MARY Screen Anti-Proteinase 3 Anti-Myeloperoxidase ANCA Glomerular Base Memb Ab Complement C3 Complement C4 Free [place] LC, Quant Free Lambda LC, Quant Free [place]/Lambda Ratio Blood Type Antibody Screen Crossmatch 08/05/22 08/05/22 08/05/22 05:38 05:38 16:17 WBC RBC Hgb Hct MCV MCH MCHC RDW Std Deviation RDW Coeff of Tobin Plt Count MPV Immature Gran % (Auto) Neut % (Auto) Lymph % (Auto) Treasure % (Auto) Eos % (Auto) Baso % (Auto) Neut # (Auto) Lymph # (Auto) [place] # (Auto) Eos # (Auto) Baso # (Auto) Immature Gran # (Auto) Ovalocytes Schistocytes Sodium Potassium Chloride Carbon Dioxide Anion Gap BUN Creatinine Est Cr Clr Drug Dosing Est GFR ( Amer) Est GFR (Non-Af Amer) BUN/Creatinine Ratio Glucose Calcium Ionized Calcium Magnesium Iron TIBC Unsaturated IBC Transferrin % Sat Ferritin B-Natriuretic Peptide Prostate Specific Ag 4.086 H Vitamin B12 Folate TSH 2.268 Urine Color Urine Appearance Urine pH Ur Specific [place] Urine Protein Urine Glucose (UA) Urine Ketones Urine Blood Urine Nitrite Urine Bilirubin Urine Urobilinogen Ur Leukocyte Esterase Urine WBC (Auto) Urine RBC (Auto) U Hyaline Cast (Auto) U Epithel Cells (Auto) Urine Bacteria (Auto) Stool Occult Bld Scrn POC Stool Occult Blood MARY Screen Pending Anti-Proteinase 3 Pending Anti-Myeloperoxidase Pending ANCA Pending Glomerular Base Memb Ab Pending Complement C3 Pending Complement C4 Pending Free [place] LC, Quant Pending Free Lambda LC, Quant Pending Free [place]/Lambda Ratio Pending Blood Type Antibody Screen Crossmatch 08/05/22 16:45 WBC RBC Hgb Hct MCV MCH MCHC RDW Std Deviation RDW Coeff of Tobin Plt Count MPV Immature Gran % (Auto) Neut % (Auto) Lymph % (Auto) Treasure % (Auto) Eos % (Auto) Baso % (Auto) Neut # (Auto) Lymph # (Auto) [place] # (Auto) Eos # (Auto) Baso # (Auto) Immature Gran # (Auto) Ovalocytes Schistocytes Sodium Potassium Chloride Carbon Dioxide Anion Gap BUN Creatinine Est Cr Clr Drug Dosing Est GFR ( Amer) Est GFR (Non-Af Amer) BUN/Creatinine Ratio Glucose Calcium Ionized Calcium Magnesium Iron TIBC Unsaturated IBC Transferrin % Sat Ferritin B-Natriuretic Peptide Prostate Specific Ag Vitamin B12 Folate TSH Urine Color Urine Appearance Urine pH Ur Specific [place] Urine Protein Urine Glucose (UA) Urine Ketones Urine Blood Urine Nitrite Urine Bilirubin Urine Urobilinogen Ur Leukocyte Esterase Urine WBC (Auto) Urine RBC (Auto) U Hyaline Cast (Auto) U Epithel Cells (Auto) Urine Bacteria (Auto) Stool Occult Bld Scrn Negative POC Stool Occult Blood MARY Screen Anti-Proteinase 3 Anti-Myeloperoxidase ANCA Glomerular Base Memb Ab Complement C3 Complement C4 Free [place] LC, Quant Free Lambda LC, Quant Free [place]/Lambda Ratio Blood Type Antibody Screen Crossmatch Diagnostic Findings Telemetry personally reviewed: Sinus rhythm. Very frequent PVCs. No arrhyt hmia. Echo 08/05/2022: Mildly dilated LV. EF 40-45%. Global hypokinesis. Mild LVH. Severe left atrial dilation. Mild to moderate MR. RVSP 50. ECG personally reviewed: ECG 08/05/2022 at 5:36 a.m.: Sinus rhythm with frequent PVCs. LVH with repolarization abnormality. No significant change from 08/04/2022 ECG at 1:10 p.m.. Nephrology consultation reviewed. Chest x-ray 08/04/2022: Pulmonary vasculature prominence with cephalization. Small bilateral pleural effusions. Per Radiology. Medications Administered Current Inpatient Medications Acetaminophen (Acetaminophen 325 Mg Tab) 650 mg PO Q4H PRN PRN Reason: Pain or Fever Stop: 09/03/22 19:34 Iron Sucrose 300 mg/ Sodium (Chloride) 265 mls @ 176.667 mls/hr IV DAILY JACOBY Stop: 08/07/22 10:29 Last Infusion: 08/05/22 12:31 Dose: Infused Metoprolol Tartrate (Metoprolol Tartrate 25 Mg Tab) 25 mg PO BID [facility] Stop: 09/04/22 20:59 Ondansetron HCl (Ondansetron Inj 2 Mg/Ml 2 Ml Vial) 4 mg IV Q6H PRN PRN Reason: Nausea Stop: 09/03/22 19:34 Sodium Bicarbonate (Sodium Bicarbonate 650 Mg Tab) 650 mg PO BID [facility] Stop: 09/04/22 14:54 Last Admin: 08/05/22 15:38 Dose: 650 mg Tamsulosin HCl (Tamsulosin Hcl 0.4 Mg Cap) 0.4 mg PO QAM JACOBY Stop: 09/04/22 08:59 Last Admin: 08/05/22 08:05 Dose: 0.4 mg PG Care Time/CCT Total # of Minutes Spent Total Time Spent with Patient: Total time spent is greater than 50% in coordination of care (as documented) at patient's floor/unit and/or counseling patient: Coding Level of Care Code 47700 Initial Inpt Care Lvl 3 Diagnoses Cardiomyopathy I42.9 Frequent PVCs I49.3 Pulmonary hypertension I27.20 Mitral regurgitation I34.0 Hypervolemia E87.70 ARF (acute renal failure) N17.9
[2022-08-05 18:04] LABS: Creatinine Urine Random 31.6 mg/dl; Total Protein Urine Random 158.1 mg/dl (0-11.9)
[2022-08-05] MEDS: METOPROLOL TARTRATE 50 MG TAB PO SCH (20:18)
[2022-08-06 05:55] LABS: Hematocrit (blood only) 27.4 % (40.1-51.0); Hemoglobin 8.9 g/dl (14.0-18.0); Mean Corpuscular Hemoglobin 30.3 pg (25.0-34.0); Mean Corpuscular Hgb Conc 32.5 g/dL (32.0-36.0); Mean Corpuscular Volume 93.2 fL (80.0-100.0); RDW Coefficient of Variation 13.8 % (11.5-14.5); RDW Standard Deviation 46.7 fL (36.4-46.3); Red Blood Count 2.94 M/uL (4.63-6.08); White Blood Count 7.44 K/ul (4.8-10.8)
[2022-08-06 06:21] LABS: BUN Creatinine Ratio 13.1 (10-20); Calcium 8.1 mg/dl (8.5-10.1); Creatinine Clr Calc Pharmacy 11.4 ml/min; Est GFR (African American) 10.9 ml/min; Est GFR (Non-African American) 9.4 ml/min; Magnesium 1.9 mg/dl (1.7-2.4); Phosphorus 4.9 mg/dl (2.5-4.9); Potassium 4.4 mmol/L (3.5-5.1)
[2022-08-06 06:45] LABS: Basophils # (auto) 0.07 K/uL (0-0.2); Basophils % (auto) 0.9 %; Eosinophils # (auto) 0.23 K/uL (0-0.50); Eosinophils % (auto) 3.1 %; Immature Granulocytes # (auto) 0.02 K/uL (0.00-0.02); Immature Granulocytes % (auto) 0.3 %; Lymphocytes # (auto) 0.96 K/uL (1.2-3.4); Lymphocytes % (auto) 12.9 %; Mean Platelet Volume 13.2 fL (9.4-12.4); Monocytes # (auto) 0.72 K/uL (0.24-0.82); Monocytes % (auto) 9.7 %; Neutrophils # (auto) 5.44 K/uL (1.4-6.5); Neutrophils % (auto) 73.1 %; Platelet Count 152 K/uL (130-400)
[2022-08-06] MEDS ORDERED: MAGNESIUM SULFATE / D5W 1 GM/100 ML BAG IV ONE (07:38)
[2022-08-06] MEDS ORDERED: FUROSEMIDE 40 MG/4 ML VIAL IV ONE (07:48)
[2022-08-06] MEDS: METOPROLOL TARTRATE 50 MG TAB PO SCH ×2 (08:27→20:39)
[2022-08-06] MEDS: TAMSULOSIN HCL 0.4 MG CAP PO SCH (08:28)
[2022-08-06] MEDS: SODIUM BICARBONATE 650 MG TAB PO SCH ×2 (08:28→20:39)
[2022-08-06] MEDS: HEPARIN SOD 5,000 UNIT/0.5 ML VIAL SQ SCH ×2 (08:28→20:39)
[2022-08-06] MEDS: IRON SUCROSE 300 MG in SODIUM CHLORIDE 0.9% 250 ML IV SCH (08:30)
--- NOTE | 2022-08-06 09:34 | Nephrology Progress Note ---
Date of Service August 06, 2022 Assessment & Plan (1) Chronic kidney disease, stage V: Plan: * Clinically suspect CKD due to BPH and LI. Abdominal CT this admission reveals marked atrophy of both kidneys * Kidney function remains stable at Cr 5.4 w/ EGFR 10 cc/min. Volume status and electrolyte balance are acceptable. Patient is nonoliguric. No acute indication for INSTRUCTIONAL MATERIAL DIRECTOR * Monitor PRP * Discussed vascular access creation, INSTRUCTIONAL MATERIAL DIRECTOR and home options including CAPD in detail w/ patient today. He wishes to speak with his family about dialysis but notes that dialysis likely will not provide him with quality of life. At this time he desires conservative medical management * Urinalysis does reveal proteinuria. SPEP/UPEP, serologic studies pending (2) BPH (benign prostatic hyperplasia): Plan: * Recommend consultation w/ Urology (3) Metabolic acidosis: Plan: * Due to CKD. Continue NaHCO3 650 mg po BID (4) Anemia: Plan: * Venofer ordered - Day #2 of 3 * Will provide one dose Epogen today (5) Hyperparathyroidism: Plan: * Due to CKD * Will order vitamin D level * Start Calcitriol 0.25 mcg po daily (6) HTN (hypertension): Plan: * SBP 140 - 190 mm Hg * On Metoprolol w/ HR 65 bpm * Will start Amlodipine 2.5 mg po q AM Admission and Anticipated Discharge Date Admission Date: August 04, 2022 Subjective Mr. Mackenzie was evaluated in his hospital room this morning. He denies fever, flank pain or dysgeusia. Mr. Mackenzie was breathing comfortably flat in bed on room air. He voiced no new medical concerns Review of Systems Constitutional: no fever Eyes: no problem reported Ear, Nose, Mouth, Throat: no problem reported Respiratory: no cough and no dyspnea Cardiovascular: no chest pain Gastrointestinal: no abdominal pain, no vomiting and no diarrhea/loose stools Integumentary: no problem reported Neurologic: no confusion Physical Exam Constitutional: not in distress Eyes: PERRL, conjunctivae normal, anicteric sclerae ENMT: external ear and nose normal, oropharynx normal Neck: trachea midline, no thyromegaly Respiratory: normal respiratory effort, lungs clear to auscultation Cardiovascular: RRR, no murmur, no edema Gastrointestinal (Abdomen): normal bowel sounds, soft, nontender, no hepatosplenomegaly Skin: no rashes, warm and dry Neurologic: awake; not confused Results & Data ([place]) Vital Signs (Past 12 Hours) Vital Signs Temp Pulse Pulse Resp BP BP Pulse Ox 08/06/22 06:16 72 08/06/22 08:00 08/06/22 07:27 36.6 C 65 18 185/93 H 97 08/05/22 22:16 70 08/06/22 03:10 36.5 C 66 18 140/96 97 08/05/22 23:08 36.5 C 69 18 145/82 H 97 O2 Del Method 08/06/22 06:16 08/06/22 08:00 Room Air 08/06/22 07:27 Room Air 08/05/22 22:16 08/06/22 03:10 Room Air 08/05/22 23:08 Room Air Laboratory Results Laboratory Tests 08/05/22 08/06/22 08/06/22 05:38 05:43 05:43 WBC 7.44 Hgb 8.9 L Hct 27.4 L Plt Count 152 Sodium 138 Potassium 4.4 Chloride 110 H Carbon Dioxide 19 L BUN 72 H Creatinine 5.49 H* Est GFR ( Amer) 10.9 Calcium 8.1 L Phosphorus 4.9 Magnesium 1.9 Prostate Specific Ag 4.086 H PTH Intact 08/06/22 05:43 WBC Hgb Hct Plt Count Sodium Potassium Chloride Carbon Dioxide BUN Creatinine Est GFR ( Amer) Calcium Phosphorus Magnesium Prostate Specific Ag PTH Intact 366.8 H Laboratory Tests 07/21/21 08/04/22 08/05/22 09:10 13:25 05:38 Creatinine 1.28 5.44 H* 5.38 H* 08/06/22 05:43 Creatinine 5.49 H* Diagnostic Findings 08/04/[address]: Kidneys: The unenhanced kidneys are atrophic and without hydronephrosis. There are no renal calculi identified. A 1.9 cm cyst is noted in the left kidney. Pelvic viscera: The prostate gland is enlarged and heterogeneous noting median lobe hypertrophy. The bladder is distended, and the wall appears thickened/trabeculated indicating chronic outlet obstruction. PG Care Time/CCT Total # of Minutes Spent Total Time Spent with Patient: Total time spent is greater than 50% in coordination of care (as documented) at patient's floor/unit and/or counseling patient: Coding Level of Care Code 58780 Subseq Hosp Care Lvl 3 Diagnoses Chronic kidney disease, stage V N18.5 BPH (benign prostatic hyperplasia) N40.0 Metabolic acidosis E87.2 Anemia D64.9 Hyperparathyroidism E21.3 HTN (hypertension) I10
[2022-08-06] MEDS ORDERED: EPOETIN ALFA 10,000 UNITS/ML VIAL SQ ONE (11:30)
[2022-08-06] MEDS: amLODIPine BESYLATE 5 MG TAB PO SCH (12:20)
--- NOTE | 2022-08-06 15:34 | Hospitalist Progress Note ---
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 Could be some post-renal component With secondary hyperparathyroidism, iPTH 300s BPs remain elevated Making plenty of urine -check urine protein creatinine ratio, order serology and paraproteinemia workup-all pending -start calcitriol -follow BMP, UOP, BPs, volume status -broached the topic of dialysis but not needed at this time-hopeful for some renal recovery. Pt to discuss with family but seems like he would not want dialysis -due to persistent volume overload-continue on lasix 40 mg IV daily and dose daily based on response and renal function -avoid nephrotoxins, renally dose all medications -add amlodipine 2.5mg po daily (2) Bigeminy: Plan: with frequent PVCs and bigeminy - without chest pain or ST elevation, no syncope - electrolytes are stable with K >4 and Mg > 2.0 - no other ECG for evaluation ECHO with mildly reduced EF 40-45%, global hypokinesis, mild LVH, mild-mod MR, mod Pulm HTN -Appreciate Cardiology consultation -metoprolol started on admission-->increased to 50mg po bid and continue to titrate up as able to--> plan to switch to Toprol XL on discharge once titrated up to proper dosing -monitor on tele (3) Anemia: Plan: Anemia mixed of iron deficiency and of chronic kidney disease--> presented with hgb 7.8 Transferrin sat low at 13%--> give Venofer 300mg IV daily x 3 days, received one dose epo on 08/06 - he denies any UGI symptoms or changes in stools-fecal occult here is negative - b12 and folate normal, TSH normal - platelet and WBC counts normal - transfused 1 unit prbc and hgb now up to 8.9 - will need po FeSO4 on discharge -follow CBC (4) HTN (hypertension): Plan: BPs significantly elevated -started metoprolol and titrate up -add on amlodipine (5) Cardiomyopathy: Plan: newly diagnosed, EF 40-45% mildly reduced, global hypokinesis no angina or ischemic changes on ECG appreciate Cardiology consultation -could be related to frequent PVCs -plan to start Toprol XL on discharge cannot start ACEi or ARB due to NIKOS follow as outpt with Cardiology (6) Enlarged prostate: Plan: Prostatomegaly with chronic bladder outlet obstruction noted on his CT abd/pelvis DDX: BPH vs. cancer - Bahena placed due to this in setting of NIKOS - draining adequate amount of light urine - initiate Flomax 0.4 mg daily PSA here minimally elevated at 4 -keep Bahena for now and will consult Urology while here for further evaluation (7) HFrEF (heart failure with reduced ejection fraction): Plan: as above, with chronic HFrEF volume overload due to NIKOS (8) Hypervolemia: Plan: secondary to NIKOS, ongoing but improving--> peripheral edema much improved, no further rales on exam, weight is down, net neg I/O giving lasix monitor I/Os -continue low sodium diet, 1500mL fluid restriction, renal diet (9) Metabolic acidosis: Plan: due to NIKOS, serum HCO3 17-18 started NaHCO3 650mg po bid and now improving follow BMP Plan DVT proph- heparin SQ Dispo-continued stay PCU, would not discharge until has some renal recovery discussed all care with and daughters at bedside Admission and Anticipated Discharge Date Admission Date: August 04, 2022 Subjective Pt reports ongoing SOB especially with lying flat. No CP, abd pain. Is having some constipation. Also having trouble sleeping due to orthopnea. He wants to know when I think he'll be able to go home Tele with ongoing frequent bigeminy, PVC couplets, NSR rates 70s Review of Systems Review of Systems: All systems reviewed & are unremarkable except as noted in HPI & below Physical Exam Constitutional: WD/WN, vitals as above Eyes: + anicteric sclerae Neck: trachea midline, no thyromegaly Respiratory: normal respiratory effort, lungs clear to auscultation normal respiratory effort; no cough Auscultation: lungs clear to auscultation bilaterally Cardiovascular: Rate/Rhythm: regular rate and regular rhythm Heart Sounds: + murmur (2/6 systolic murmur at apex) Vessels: dorsalis pedis pulses present (1+) Extremities: + edema (trace edema legs bilat to mid tibia-much better) Chest (Breasts): Chest: normal inspection of chest Gastrointestinal (Abdomen): normal bowel sounds, soft, nontender, no hepatosplenomegaly Musculoskeletal: Extremities: extremities normal to inspection; no cyanosis and no clubbing Skin: no rashes, warm and dry Neurologic: moves all extremities and awake; no focal motor deficits Psychiatric: A+Ox3, euthymic affect Lymphatic: no lymphedema Results & Data Results & Data ([facility]) Vital Signs (Past 12 Hours) Vital Signs Temp Pulse Pulse Resp BP BP Pulse Ox 08/06/22 14:43 75 08/06/22 14:58 36.6 C 74 16 170/93 H 96 08/06/22 11:22 36.8 C 62 16 163/113 H 94 08/06/22 06:16 72 08/06/22 08:00 08/06/22 07:27 36.6 C 65 18 185/93 H 97 O2 Del Method 08/06/22 14:43 08/06/22 14:58 Room Air 08/06/22 11:22 Room Air 08/06/22 06:16 08/06/22 08:00 Room Air 08/06/22 07:27 Room Air Laboratory Results 08/06/22 08/06/22 08/06/22 Range/Units 05:43 05:43 05:43 WBC (4.8-10.8) K/ul RBC (4.63-6.08) M/uL Hgb (14.0-18.0) g/dl Hct (40.1-51.0) % MCV (80.0-100.0) fL MCH (25.0-34.0) pg MCHC (32.0-36.0) g/dL RDW Std Deviation (36.4-46.3) fL RDW Coeff of Tobin (11.5-14.5) % Plt Count (130-400) K/uL MPV (9.4-12.4) fL Immature Gran % (Auto) % Neut % (Auto) % Lymph % (Auto) % Giles % (Auto) % Eos % (Auto) % Baso % (Auto) % Neut # (Auto) (1.4-6.5) K/uL Lymph # (Auto) (1.2-3.4) K/uL Giles # (Auto) (0.24-0.82) K/uL Eos # (Auto) (0-0.50) K/uL Baso # (Auto) (0-0.2) K/uL Immature Gran # (Auto) (0.00-0.02) K/uL Sodium 138 (136-145) mmol/L Potassium 4.4 (3.5-5.1) mmol/L Chloride 110 H (98-107) mmol/L Carbon Dioxide 19 L (21-32) mmol/L Anion Gap 9 (3-11) BUN 72 H (6-23) mg/dl Creatinine 5.49 H* (0.6-1.4) mg/dl Est Cr Clr Drug Dosing 11.4 ml/min Est GFR ( Amer) 10.9 ml/min Est GFR (Non-Af Amer) 9.4 ml/min BUN/Creatinine Ratio 13.1 (10-20) Glucose 96 (70-99(Fasting)) mg/dl Calcium 8.1 L (8.5-10.1) mg/dl Phosphorus 4.9 (2.5-4.9) mg/dl Magnesium 1.9 (1.7-2.4) mg/dl Total Protein (PEP) Pending Albumin (PEP) Pending Jkqvt-8-Kstiptqaj Pending Tzjyf-4-Taqmtevvc Pending Zsef-8-Yuzmefrx Pending Uswp-4-Zjsghegm Pending Gamma Globulins Pending Monoclonal Peak 3 Pending Ser Monoclonl Protein Pending Ser Monoclonal Prot 2 Pending PEP Interpretation Pending PTH Intact 366.8 H (12.0-88.0) pg/ml Ur Random Creatinine mg/dl U Random Total Protein (0-11.9) mg/dl Ur Creatinine mg/dL Protein/Creatinin Ratio (0-0.2) Urine Albumin (%) U Qwtxz-3-Mcacqhhz (%) U Yipnt-1-Ujszfdow (%) U Beta Globulin (%) U Gamma Globulin (%) U Abnormal Prot Band 1 U Abnormal Prot Band 2 U Abnormal Prot Band 3 Urine PEP Interpret Stool Occult Bld Scrn (Negative) MARY Screen Anti-Proteinase 3 Anti-Myeloperoxidase ANCA Glomerular Base Memb Ab Complement C3 Complement C4 Free [place] LC, Quant Free Lambda LC, Quant Free [place]/Lambda Ratio 08/06/22 08/05/22 08/05/22 Range/Units 05:43 17:30 17:30 WBC 7.44 (4.8-10.8) K/ul RBC 2.94 L (4.63-6.08) M/uL Hgb 8.9 L (14.0-18.0) g/dl Hct 27.4 L (40.1-51.0) % MCV 93.2 (80.0-100.0) fL MCH 30.3 (25.0-34.0) pg MCHC 32.5 (32.0-36.0) g/dL RDW Std Deviation 46.7 H (36.4-46.3) fL RDW Coeff of Tobin 13.8 (11.5-14.5) % Plt Count 152 (130-400) K/uL MPV 13.2 H (9.4-12.4) fL Immature Gran % (Auto) 0.3 % Neut % (Auto) 73.1 % Lymph % (Auto) 12.9 % Giles % (Auto) 9.7 % Eos % (Auto) 3.1 % Baso % (Auto) 0.9 % Neut # (Auto) 5.44 (1.4-6.5) K/uL Lymph # (Auto) 0.96 L (1.2-3.4) K/uL Giles # (Auto) 0.72 (0.24-0.82) K/uL Eos # (Auto) 0.23 (0-0.50) K/uL Baso # (Auto) 0.07 (0-0.2) K/uL Immature Gran # (Auto) 0.02 (0.00-0.02) K/uL Sodium (136-145) mmol/L Potassium (3.5-5.1) mmol/L Chloride (98-107) mmol/L Carbon Dioxide (21-32) mmol/L Anion Gap (3-11) BUN (6-23) mg/dl Creatinine (0.6-1.4) mg/dl Est Cr Clr Drug Dosing ml/min Est GFR ( Amer) ml/min Est GFR (Non-Af Amer) ml/min BUN/Creatinine Ratio (10-20) Glucose (70-99(Fasting)) mg/dl Calcium (8.5-10.1) mg/dl Phosphorus (2.5-4.9) mg/dl Magnesium (1.7-2.4) mg/dl Total Protein (PEP) Albumin (PEP) Yhjfp-4-Sunujtrmx Vlqdx-8-Pxacgwslc Fdet-6-Weijrjdb Zuvc-9-Rothyxmf Gamma Globulins Monoclonal Peak 3 Ser Monoclonl Protein Ser Monoclonal Prot 2 PEP Interpretation PTH Intact (12.0-88.0) pg/ml Ur Random Creatinine 31.6 mg/dl U Random Total Protein Pending 158.1 H (0-11.9) mg/dl Ur Creatinine mg/dL Pending Protein/Creatinin Ratio Pending 5.0 H (0-0.2) Urine Albumin (%) Pending U Ajxzg-4-Sdrxotaa (%) Pending U Mgzhh-7-Gftukvef (%) Pending U Beta Globulin (%) Pending U Gamma Globulin (%) Pending U Abnormal Prot Band 1 Pending U Abnormal Prot Band 2 Pending U Abnormal Prot Band 3 Pending Urine PEP Interpret Pending Stool Occult Bld Scrn (Negative) MARY Screen Anti-Proteinase 3 Anti-Myeloperoxidase ANCA Glomerular Base Memb Ab Complement C3 Complement C4 Free [place] LC, Quant Free Lambda LC, Quant Free [place]/Lambda Ratio 08/05/22 08/05/22 Range/Units 16:45 16:17 WBC (4.8-10.8) K/ul RBC (4.63-6.08) M/uL Hgb (14.0-18.0) g/dl Hct (40.1-51.0) % MCV (80.0-100.0) fL MCH (25.0-34.0) pg MCHC (32.0-36.0) g/dL RDW Std Deviation (36.4-46.3) fL RDW Coeff of Tobin (11.5-14.5) % Plt Count (130-400) K/uL MPV (9.4-12.4) fL Immature Gran % (Auto) % Neut % (Auto) % Lymph % (Auto) % Giles % (Auto) % Eos % (Auto) % Baso % (Auto) % Neut # (Auto) (1.4-6.5) K/uL Lymph # (Auto) (1.2-3.4) K/uL Giles # (Auto) (0.24-0.82) K/uL Eos # (Auto) (0-0.50) K/uL Baso # (Auto) (0-0.2) K/uL Immature Gran # (Auto) (0.00-0.02) K/uL Sodium (136-145) mmol/L Potassium (3.5-5.1) mmol/L Chloride (98-107) mmol/L Carbon Dioxide (21-32) mmol/L Anion Gap (3-11) BUN (6-23) mg/dl Creatinine (0.6-1.4) mg/dl Est Cr Clr Drug Dosing ml/min Est GFR ( Amer) ml/min Est GFR (Non-Af Amer) ml/min BUN/Creatinine Ratio (10-20) Glucose (70-99(Fasting)) mg/dl Calcium (8.5-10.1) mg/dl Phosphorus (2.5-4.9) mg/dl Magnesium (1.7-2.4) mg/dl Total Protein (PEP) Albumin (PEP) Ccloh-9-Ckglpscmq Zbkhj-0-Wzfvdokyv Kuvp-4-Vfybwtwy Mkrc-3-Vtuaeavh Gamma Globulins Monoclonal Peak 3 Ser Monoclonl Protein Ser Monoclonal Prot 2 PEP Interpretation PTH Intact (12.0-88.0) pg/ml Ur Random Creatinine mg/dl U Random Total Protein (0-11.9) mg/dl Ur Creatinine mg/dL Protein/Creatinin Ratio (0-0.2) Urine Albumin (%) U Dizyf-4-Hchvnlmw (%) U Cphhf-9-Lqbafipu (%) U Beta Globulin (%) U Gamma Globulin (%) U Abnormal Prot Band 1 U Abnormal Prot Band 2 U Abnormal Prot Band 3 Urine PEP Interpret Stool Occult Bld Scrn Negative (Negative) MARY Screen Pending Anti-Proteinase 3 Pending Anti-Myeloperoxidase Pending ANCA Pending Glomerular Base Memb Ab Pending Complement C3 Pending Complement C4 Pending Free [place] LC, Quant Pending Free Lambda LC, Quant Pending Free [place]/Lambda Ratio Pending PG Care Time/CCT Total # of Minutes Spent Total Time Spent with Patient: Total time spent is greater than 50% in coordination of care (as documented) at patient's floor/unit and/or counseling patient: Coding Level of Care Code 18369 Subseq Hosp Care Lvl 3 Diagnoses ARF (acute renal failure) N17.9 Bigeminy I49.8 Anemia D64.9 HTN (hypertension) I10 Cardiomyopathy I42.9 Enlarged prostate N40.0 HFrEF (heart failure with reduced ejection fraction) I50.20 Hypervolemia E87.70 Metabolic acidosis E87.2
[2022-08-06] MEDS: MELATONIN 3 MG TAB PO SCH (20:39)
[2022-08-07 07:00] LABS: Hematocrit (blood only) 29.8 % (40.1-51.0); Hemoglobin 9.7 g/dl (14.0-18.0); Mean Corpuscular Hemoglobin 29.9 pg (25.0-34.0); Mean Corpuscular Hgb Conc 32.6 g/dL (32.0-36.0); RDW Standard Deviation 47.1 fL (36.4-46.3); Red Blood Count 3.24 M/uL (4.63-6.08)
[2022-08-07 07:16] LABS: Mean Platelet Volume 13.5 fL (9.4-12.4); Platelet Count 159 K/uL (130-400)
[2022-08-07 07:36] LABS: BUN Creatinine Ratio 13.5 (10-20); Calcium 8.4 mg/dl (8.5-10.1); Creatinine Clr Calc Pharmacy 12.1 ml/min; Est GFR (African American) 11.8 ml/min; Est GFR (Non-African American) 10.2 ml/min; Magnesium 2.1 mg/dl (1.7-2.4); Potassium 4.3 mmol/L (3.5-5.1)
[2022-08-07] MEDS: SODIUM BICARBONATE 650 MG TAB PO SCH ×2 (08:46→19:45)
[2022-08-07] MEDS: HEPARIN SOD 5,000 UNIT/0.5 ML VIAL SQ SCH ×2 (08:46→19:45)
[2022-08-07] MEDS: TAMSULOSIN HCL 0.4 MG CAP PO SCH (08:46)
[2022-08-07] MEDS: amLODIPine BESYLATE 5 MG TAB PO SCH (08:46)
[2022-08-07] MEDS: METOPROLOL TARTRATE 50 MG TAB PO SCH ×2 (08:46→19:46)
[2022-08-07] MEDS: CALCITRIOL 0.25 MCG CAPSULE PO SCH (08:47)
[2022-08-07] MEDS: IRON SUCROSE 300 MG in SODIUM CHLORIDE 0.9% 250 ML IV SCH (08:47)
--- NOTE | 2022-08-07 09:11 | Urology Consultation ---
Date of Consultation August 07, 2022 Assessment & Plan (1) Chronic kidney disease, stage V: Plan 72 yo male admitted with acute renal failure. CT scan showed BPH and raised the question of possible bladder outlet obstruction causing his renal failure. -Based on his CT scan showing no hydronephrosis, and his creatinine only mildly improving since placement of guan catheter, I lean toward this not being related to bladder outlet obstruction at this time. He has no urinary symptoms. Typically when renal failure is a result of bladder outlet obstruction, there is bilateral hydronephrosis and the creatinine quickly normalizes once guan catheter is placed. -Guan catheter can be removed. Recommend PVRs to ensure adequate emptying. -PSA was just over 4 on 08/05, but this was checked after guan placement would could falsely elevated. Recommend his PCP recheck this in 3 months to ensure it has normalized. -I offered f/u in my clinic, but as he pays out of pocket he preferred to not come to the office, which is reasonable since he has no urologic complaints at this time. He can follow up with his PCP for repeat PSA and I am happy to see him in office if he changes his mind. -Urology to sign off. History of Present Illness Reason for Consultation: Rule out urinary retention as cause of renal failure Attending Physician: Brook Field MD History of Present Illness 72 yo male currently admitted for acute renal failure and anemia on 08/04/22. Creatinine on admission was 5.44, up from most recent value of 1.28 on 07/21/21. Creatinine is currently 5.[address] scan on admission was performed, which I independently reviewed. This did not show any hydronephrosis. It showed moderate prostatomegaly but the bladder wall was not overly thickened. A catheter was placed at the time of admission. Nephrology saw the patient as a consult and recommended a urology consult because of CT scan findings. Patient denies any dysuria, hematuria, frequency, urgency, incontinence or incomplete bladder emptying. He has never seen a urologist before. Denies any history of retention or previously urologic procedures. He briefy smoked as a teenager. He has no family history of malignancies. He does have a left hydrocele which does not bother him. PSA was 4.086 on admission, but this was after guan placement and could be falsely elevated. Allergies Allergy/AdvReac Type Severity Reaction Status Date / Time No Known Allergies Allergy Verified 08/04/22 18:02 Home Medications Medication Instructions Recorded Confirmed Type No Known Home Medications 08/04/22 08/04/22 History Patient History Medical History (Updated 08/06/22 @ 11:02 by Papo Strickland MD) Anemia Cardiomyopathy Enlarged prostate Frequent PVCs HFrEF (heart failure with reduced ejection fraction) HTN (hypertension) Mitral regurgitation Osteoarthritis Pulmonary hypertension Surgical History (Updated 08/04/22 @ 18:00 by KRISTIN Kohler) History of herniorrhaphy Inguinal hernia (done under local) History of hip replacement History of tooth extraction Family History (Updated 08/04/22 @ 18:00 by KRISTIN Kohler) Other Anemia No family history of adverse response to anesthesia Denies family history of Heart disease Cancer Social History Smoking Status: Never smoker Second Hand Exposure: No; Hx Alcohol Use: No Hx Substance Use: No Preferred Language: Kazakh Communication Ability: Effective Marketing 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: No Beliefs That Will Affect Care: None marital status: Current Living Situation: Spouse Current Living Situation Comment: AND 2 DAUGHTERS Other Information That Helps Us Care for You: No Feels Safe at Home: Yes Safety Concerns: Feels Safe At This Time Assistive Devices: None Review of Systems Review of Systems: 14 point review of systems negative outside of what is listed above in HPI Physical Exam Physical Exam: General: Alert and oriented, no acute distress HEENT: Normocephalic, mucous membranes moist Cardiovascular: Regular rate Pulmonary: Nonlabored respirations Abdomen: Nondistended : Guan draining clear yellow urine. Circumcised phallus with orthotopic meatus. Moderate left hydrocele, unable to palpate testicle. Right testicle palpably normal. Extremities: Moves all 4 spontaneously Neuro: No gross deficits Skin: Warm, dry, no rashes noted Results & Data ([facility]) Vital Signs (Past 12 Hours) Vital Signs Temp Pulse Pulse Resp BP BP Pulse Ox 08/07/22 08:14 36.5 C 77 16 149/81 H 96 08/07/22 06:08 71 08/07/22 00:01 65 08/07/22 03:57 36.8 C 68 18 168/78 H 96 08/06/22 23:06 36.8 C 66 20 140/67 97 O2 Del Method 08/07/22 08:14 Room Air 08/07/22 06:08 08/07/22 00:01 08/07/22 03:57 Room Air 08/06/22 23:06 Room Air PG Care Time/CCT Total # of Minutes Spent Total Time Spent with Patient: Total time spent is greater than 50% in coordination of care (as documented) at patient's floor/unit and/or counseling patient: Coding Level of Care Code 19117 Inpt Consult Level 4 Diagnoses Chronic kidney disease, stage V N18.5
--- NOTE | 2022-08-07 09:13 | Nephrology Progress Note ---
Date of Service August 07, 2022 Assessment & Plan (1) Chronic kidney disease, stage V: Plan: * Clinically suspect CKD due to BPH and LI. Abdominal CT this admission reveals marked atrophy of both kidneys * 3 L UO yesterday. Cr improved from 5.4 to 5.1. Volume status and electrolyte balance are acceptable. 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 Mackenzie this morning. He has discussed his options w/ his family yesterday. Mr. Mackenzie does not feel that dialysis will provide him with quality of life. He desires conservative medical management * Urinalysis does reveal proteinuria. SPEP/UPEP, serologic studies pending (2) BPH (benign prostatic hyperplasia): Plan: * Recommend keeping Bahena catheter in to measure OU * Agree w/ starting Flomax therapy * Await Urology recommendations (3) Metabolic acidosis: Plan: * Due to CKD. Continue NaHCO3 650 mg po BID (4) Anemia: Plan: * Venofer ordered - Day #3 of 3 * Epogen administered 08/06/22 (5) Hyperparathyroidism: Plan: * Due to CKD * 25-OH Vitamin D 12.8, PTH 366.8 * Continue Calcitriol 0.25 mcg po daily (6) HTN (hypertension): Plan: * SBP improved to 140 - 170 mm Hg * Continue Metoprolol and Amlodipine Admission and Anticipated Discharge Date Admission Date: August 04, 2022 Subjective Mr. Mackenzie was evaluated in his hospital room this morning. He denies fever, flank pain or dysgeusia. Mr. Mackenzie was breathing comfortably flat in bed on room air. He voiced no new medical concerns Review of Systems Constitutional: no fever Eyes: no problem reported Ear, Nose, Mouth, Throat: no problem reported Respiratory: no cough and no dyspnea Cardiovascular: no chest pain Gastrointestinal: no abdominal pain, no vomiting and no diarrhea/loose stools Integumentary: no problem reported Neurologic: no confusion Physical Exam Constitutional: not in distress Eyes: PERRL, conjunctivae normal, anicteric sclerae ENMT: external ear and nose normal, oropharynx normal Neck: trachea midline, no thyromegaly Respiratory: normal respiratory effort, lungs clear to auscultation Cardiovascular: RRR, no murmur, no edema Gastrointestinal (Abdomen): normal bowel sounds, soft, nontender, no hepatosplenomegaly Skin: no rashes, warm and dry Neurologic: awake; not confused Results & Data ([facility]) Vital Signs (Past 12 Hours) Vital Signs Temp Pulse Pulse Resp BP BP Pulse Ox 08/07/22 08:14 36.5 C 77 16 149/81 H 96 08/07/22 06:08 71 08/07/22 00:01 65 08/07/22 03:57 36.8 C 68 18 168/78 H 96 08/06/22 23:06 36.8 C 66 20 140/67 97 O2 Del Method 08/07/22 08:14 Room Air 08/07/22 06:08 08/07/22 00:01 08/07/22 03:57 Room Air 08/06/22 23:06 Room Air Laboratory Results Laboratory Tests 08/04/22 08/04/22 08/05/22 13:25 15:34 05:38 WBC Hgb Hct Plt Count Sodium Potassium Chloride Carbon Dioxide BUN Creatinine 5.44 H* 5.38 H* Glucose Calcium Magnesium PEP Interpretation Urine PEP Interpret Stool Occult Bld Scrn MARY Screen Anti-Proteinase 3 Anti-Myeloperoxidase ANCA Glomerular Base Memb Ab Complement C3 Complement C4 Free [place] LC, Quant Free Lambda LC, Quant Free [place]/Lambda Ratio SARS-CoV-2, RNA, NAAT NEGATIVE 08/05/22 08/05/22 08/05/22 16:17 16:45 17:30 WBC Hgb Hct Plt Count Sodium Potassium Chloride Carbon Dioxide BUN Creatinine Glucose Calcium Magnesium PEP Interpretation Urine PEP Interpret Pending Stool Occult Bld Scrn Negative MARY Screen Pending Anti-Proteinase 3 Pending Anti-Myeloperoxidase Pending ANCA Pending Glomerular Base Memb Ab Pending Complement C3 Pending Complement C4 Pending Free [place] LC, Quant Pending Free Lambda LC, Quant Pending Free [place]/Lambda Ratio Pending SARS-CoV-2, RNA, NAAT 08/06/22 08/06/22 08/07/22 05:43 05:43 06:15 WBC Hgb Hct Plt Count Sodium 138 Potassium 4.3 Chloride 108 H Carbon Dioxide 22 BUN 69 H Creatinine 5.49 H* 5.13 H* D Glucose 95 Calcium 8.4 L Magnesium 2.1 PEP Interpretation Pending Urine PEP Interpret Stool Occult Bld Scrn MARY Screen Anti-Proteinase 3 Anti-Myeloperoxidase ANCA Glomerular Base Memb Ab Complement C3 Complement C4 Free [place] LC, Quant Free Lambda LC, Quant Free [place]/Lambda Ratio SARS-CoV-2, RNA, NAAT 08/07/22 06:15 WBC 7.50 Hgb 9.7 L Hct 29.8 L Plt Count 159 Sodium Potassium Chloride Carbon Dioxide BUN Creatinine Glucose Calcium Magnesium PEP Interpretation Urine PEP Interpret Stool Occult Bld Scrn MARY Screen Anti-Proteinase 3 Anti-Myeloperoxidase ANCA Glomerular Base Memb Ab Complement C3 Complement C4 Free [place] LC, Quant Free Lambda LC, Quant Free [place]/Lambda Ratio SARS-CoV-2, RNA, NAAT Diagnostic Findings 08/04/22 CXR: Cardiomegaly with mild pulmonary edema. Likely small bilateral pleural effusions. PG Care Time/CCT Total # of Minutes Spent Total Time Spent with Patient: Total time spent is greater than 50% in coordination of care (as documented) at patient's floor/unit and/or counseling patient: Coding Level of Care Code 68481 Subseq Hosp Care Lvl 3 Diagnoses Chronic kidney disease, stage V N18.5 BPH (benign prostatic hyperplasia) N40.0 Metabolic acidosis E87.2 Anemia D64.9 Hyperparathyroidism E21.3 HTN (hypertension) I10
--- NOTE | 2022-08-07 13:03 | Hospitalist Progress Note ---
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 Could be some post-renal component---> workup pending With secondary hyperparathyroidism, iPTH 300s, Vit D 12, -started calcitriol BPs remain elevated but now allowing permissive HTN for TIA/CVA Making plenty of urine -check urine protein creatinine ratio, order serology and paraproteinemia workup-all pending -continue calcitriol -follow BMP, UOP, BPs, volume status -broached the topic of dialysis but not needed at this time-hopeful for some renal recovery. Pt to discuss with family but seems like he would not want dialysis -due to persistent volume overload-was receiving on lasix 40 mg IV daily and dosed daily based on response and renal function--> Neuro from [facility] recommends caution with lasix due to TIA/CVA -avoid nephrotoxins, renally dose all medications -added amlodipine 2.5mg po daily but now placed on hold for TIA/CVA (2) Bigeminy: Plan: with frequent PVCs and bigeminy-improving now with starting metoprolol - without chest pain or ST elevation, no syncope - electrolytes are stable with K >4 and Mg > 2.0 - no other ECG for evaluation ECHO with mildly reduced EF 40-45%, global hypokinesis, mild LVH, mild-mod MR, mod Pulm HTN -Appreciate Cardiology consultation -metoprolol started on admission-->increased to 50mg po bid and continue to titrate up as able to--> plan to switch to Toprol XL on discharge once titrated up to proper dosing -continue to monitor on tele (3) Anemia: Plan: Anemia mixed of iron deficiency and of chronic kidney disease--> presented with hgb 7.8 Transferrin sat low at 13%--> gave Venofer 300mg IV daily x 3 days, received one dose epo on 08/06 - he denies any UGI symptoms or changes in stools-fecal occult here is negative - b12 and folate normal, TSH normal - platelet and WBC counts normal - transfused 1 unit prbc and hgb now up to 9.7 - will need po FeSO4 on discharge -follow CBC (4) HTN (hypertension): Plan: BPs significantly elevated -started metoprolol and titrate up -added on amlodipine but now hold for permissive HTN (5) Cardiomyopathy: Plan: newly diagnosed, EF 40-45% mildly reduced, global hypokinesis no angina or ischemic changes on ECG appreciate Cardiology consultation -could be related to frequent PVCs -plan to start Toprol XL on discharge cannot start ACEi or ARB due to NIKOS follow as outpt with Cardiology (6) Enlarged prostate: Plan: Prostatomegaly with chronic bladder outlet obstruction noted on his CT abd /pelvis DDX: BPH vs. cancer - Guan placed due to this in setting of NIKOS - draining adequate amount of light urine - initiate Flomax 0.4 mg daily PSA here minimally elevated at 4 -appreciate Urology consultation-does not think post-renal obstruction is the cause and said ok to remove Guan, bladder scan for PVR -repeat PSA in 3 months as was checked after guan placement -pt reported to Urologist he does not want to f/u in office due to cost (7) HFrEF (heart failure with reduced ejection fraction): Plan: as above, with chronic HFrEF volume overload due to NIKOS (8) Hypervolemia: Plan: secondary to NIKOS, ongoing but improving--> peripheral edema much improved, no further rales on exam, weight is down, net neg I/O giving lasix as above monitor I/Os -continue low sodium diet, 1500mL fluid restriction, renal diet (9) Metabolic acidosis: Plan: due to NIKOS, serum HCO3 17-18 started NaHCO3 650mg po bid and now improving follow BMP (10) TIA (transient ischemic attack): Plan: Stroke alert called on 08/07 at 12:45 for left sided facial droop and weakness CT head negative, symptoms almost completely resolved within 30 min NIH stroke score initially 6 and then down to 1 at time of [facility] consult-no TNK given -loaded with ASA 325 and Plavix 300mg and then convert to ASA 81 and Plavix 75mg daily x 3 weeks and then go to monotherapy with ASA 81mg -start high intensity statin with Crestor, check lipid panel -monitor for Afib but none so far, ECHO no thrombus from admission -check A1C but not known to be diabetic -neuro checks -check MRI brain, MRA H/N w/o con given NIKOS--> all normal PT/OT/ST -no need for Neuro consult here as case discussed with [facility] Neuro--> advised call back if symptoms change again -permissive HTN for 2 days, avoid excessive diuretics as per Neuro Plan DVT proph- heparin SQ Dispo-continued stay PCU, awaiting further renal recovery discussed all care with and 6-7 children at bedside Admission and Anticipated Discharge Date Admission Date: August 04, 2022 Subjective Pt seen as a stroke alert at 12:45 he had acute onset of left sided facial droop and left sided weakness, slight confusion. He would answer questions without dysarthria but gave one word answers. He denies headache, chest pain, visual changes. Still with some SOB. NIH stroke score 6. He was sent for head CT and by the time he got back to complete telestroke consult, he was significantly improved with only mild left facial droop but left sided weakness had completely resolved.NIH stroke score 1. Otherwise no new issues. Tele with NSR, bigeminy, frequent PVCs but less bigem than previously. Review of Systems Review of Systems: All systems reviewed & are unremarkable except as noted in HPI & below Physical Exam Constitutional: WD/WN, vitals as above Eyes: + anicteric sclerae ENMT: external ear and nose normal, oropharynx normal Neck: trachea midline, no thyromegaly Respiratory: normal respiratory effort, lungs clear to auscultation no cough Cardiovascular: Rate/Rhythm: regular rate and regular rhythm Heart Sounds: + murmur (2/6 systolic murmur at apex) Vessels: dorsalis pedis pulses present (1+) Extremities: + edema (trace edema legs bilat to mid tibia-much better) Chest (Breasts): Chest: normal inspection of chest Gastrointestinal (Abdomen): normal bowel sounds, soft, nontender, no hepatosplenomegaly Musculoskeletal: Extremities: extremities normal to inspection; no cyanosis and no clubbing Skin: no rashes, warm and dry Neurologic: + focal motor deficit (4/5 strength initially LUE and LLE) and awake Speech / Cognition: no expressive aphasia Motor/Sensory: + pronator drift; no tremor and no sensory deficit Cranial Nerves: PERRL, normal accommodation, EOM intact bilaterally and no nystagmus; + abnormal facial strength (left sided facial droop) and + tongue not midline (protruding to the left initially, then resolved) Coordination: normal cans-kf-ntou test Psychiatric: A+Ox3, euthymic affect Lymphatic: no lymphedema Results & Data Results & Data ([facility]) Vital Signs (Past 12 Hours) Vital Signs Temp Pulse Pulse Resp BP BP Pulse Ox 08/07/22 08:00 08/07/22 08:14 36.5 C 77 16 149/81 H 96 08/07/22 06:08 71 08/07/22 03:57 36.8 C 68 18 168/78 H 96 O2 Del Method 08/07/22 08:00 Room Air 08/07/22 08:14 Room Air 08/07/22 06:08 08/07/22 03:57 Room Air Laboratory Results 08/08/22 08/08/22 08/08/22 Range/Units 05:51 05:51 05:51 WBC 7.63 (4.8-10.8) K/ul RBC 2.90 L (4.63-6.08) M/uL Hgb 8.5 L (14.0-18.0) g/dl Hct 27.1 L (40.1-51.0) % MCV 93.4 (80.0-100.0) fL MCH 29.3 (25.0-34.0) pg MCHC 31.4 L (32.0-36.0) g/dL RDW Std Deviation 48.3 H (36.4-46.3) fL RDW Coeff of Tobin 14.1 (11.5-14.5) % Plt Count Pending PT (9.0-12.0) Seconds INR (0.9-1.1) APTT (21.0-31.0) Seconds PTT Ratio Sodium 139 (136-145) mmol/L Potassium 4.4 (3.5-5.1) mmol/L Chloride 110 H (98-107) mmol/L Carbon Dioxide 20 L (21-32) mmol/L Anion Gap 9 (3-11) BUN 74 H (6-23) mg/dl Creatinine 5.35 H* (0.6-1.4) mg/dl Est Cr Clr Drug Dosing 11.6 ml/min Est GFR ( Amer) 11.3 ml/min Est GFR (Non-Af Amer) 9.7 ml/min BUN/Creatinine Ratio 13.8 (10-20) Glucose 95 (70-99(Fasting)) mg/dl POC Glucose (70-99) mg/dl Estimat Average Glucose 120 mg/dl Hemoglobin A1c 5.8 H (4.5-5.6) % Calcium 7.9 L (8.5-10.1) mg/dl Magnesium (1.7-2.4) mg/dl Troponin I High Sens (0-20) pg/ml Triglycerides 110 (0-150) mg/dl Cholesterol 164 (0-200) mg/dl LDL Cholesterol, Calc 102 mg/dl VLDL Cholesterol, Calc 22 (0-30) mg/dl HDL Cholesterol 40 mg/dl Cholesterol/HDL Ratio 4.1 (0-5) 25-OH Vitamin D Total (30-100) ng/ml 08/07/22 08/07/22 08/07/22 Range/Units 13:10 13:10 12:55 WBC (4.8-10.8) K/ul RBC (4.63-6.08) M/uL Hgb (14.0-18.0) g/dl Hct (40.1-51.0) % MCV (80.0-100.0) fL MCH (25.0-34.0) pg MCHC (32.0-36.0) g/dL RDW Std Deviation (36.4-46.3) fL RDW Coeff of Tobin (11.5-14.5) % Plt Count PT 11.0 (9.0-12.0) Seconds INR 1.0 (0.9-1.1) APTT 41.0 H (21.0-31.0) Seconds PTT Ratio 1.5 Sodium (136-145) mmol/L Potassium (3.5-5.1) mmol/L Chloride (98-107) mmol/L Carbon Dioxide (21-32) mmol/L Anion Gap (3-11) BUN (6-23) mg/dl Creatinine (0.6-1.4) mg/dl Est Cr Clr Drug Dosing ml/min Est GFR ( Amer) ml/min Est GFR (Non-Af Amer) ml/min BUN/Creatinine Ratio (10-20) Glucose (70-99(Fasting)) mg/dl POC Glucose 116 H (70-99) mg/dl Estimat Average Glucose mg/dl Hemoglobin A1c (4.5-5.6) % Calcium (8.5-10.1) mg/dl Magnesium (1.7-2.4) mg/dl Troponin I High Sens 14.1 (0-20) pg/ml Triglycerides (0-150) mg/dl Cholesterol (0-200) mg/dl LDL Cholesterol, Calc mg/dl VLDL Cholesterol, Calc (0-30) mg/dl HDL Cholesterol mg/dl Cholesterol/HDL Ratio (0-5) 25-OH Vitamin D Total (30-100) ng/ml 08/07/22 08/07/22 Range/Units 06:15 06:15 WBC (4.8-10.8) K/ul RBC (4.63-6.08) M/uL Hgb (14.0-18.0) g/dl Hct (40.1-51.0) % MCV (80.0-100.0) fL MCH (25.0-34.0) pg MCHC (32.0-36.0) g/dL RDW Std Deviation (36.4-46.3) fL RDW Coeff of Tobin (11.5-14.5) % Plt Count PT (9.0-12.0) Seconds INR (0.9-1.1) APTT (21.0-31.0) Seconds PTT Ratio Sodium 138 (136-145) mmol/L Potassium 4.3 (3.5-5.1) mmol/L Chloride 108 H (98-107) mmol/L Carbon Dioxide 22 (21-32) mmol/L Anion Gap 8 (3-11) BUN 69 H (6-23) mg/dl Creatinine 5.13 H* D (0.6-1.4) mg/dl Est Cr Clr Drug Dosing 12.1 ml/min Est GFR ( Amer) 11.8 ml/min Est GFR (Non-Af Amer) 10.2 ml/min BUN/Creatinine Ratio 13.5 (10-20) Glucose 95 (70-99(Fasting)) mg/dl POC Glucose (70-99) mg/dl Estimat Average Glucose mg/dl Hemoglobin A1c (4.5-5.6) % Calcium 8.4 L (8.5-10.1) mg/dl Magnesium 2.1 (1.7-2.4) mg/dl Troponin I High Sens (0-20) pg/ml Triglycerides (0-150) mg/dl Cholesterol (0-200) mg/dl LDL Cholesterol, Calc mg/dl VLDL Cholesterol, Calc (0-30) mg/dl HDL Cholesterol mg/dl Cholesterol/HDL Ratio (0-5) 25-OH Vitamin D Total 12.8 L (30-100) ng/ml Diagnostic Findings Head CT 08/07/22 13:01 CT head/brain wo con CLINICAL HISTORY: 72 years-old Male with stroke alert,left sided weakness and facial droop. Acute strokelike symptoms with left-sided weakness TECHNIQUE: Multiple axial CT images of the head were obtained without contrast. A dose lowering technique was utilized adhering to the principles of ALARA. CT DOSE: 537.48 mGy.cm COMPARISON: None. FINDINGS: No acute intracranial hemorrhage, midline shift, intracranial mass, hydrocephalus, territorial ischemia or abnormal extra-axial collection. With matter hypodensities suggestive of chronic microvascular ischemic disease. Cerebral vascular calcifications. Ill-defined hypodensity involving the left brachium pontis and left noe on image 7 series 2 is likely artifactual. The calvarium is intact. Partially imaged mild polypoid mucosal thickening of the right maxillary sinus. Unremarkable soft tissues. IMPRESSION: No acute intracranial abnormality identified. ACT 112: Negative or not required by law. The above report was generated using voice recognition software. It may contain grammatical, syntax or spelling errors. Electronically signed by: David Bryson M.D. 08/07/2022 1:34 PM Brain MRI 08/07/22 14:08 MR brain wo con HISTORY: 72 years-old Male CVA acute strokelike symptoms COMPARISON: Head CT of same day TECHNIQUE: Multiplanar multisequence MRI of the brain was obtained without the use of IV contrast. FINDINGS: No restricted diffusion to suggest acute or subacute infarct. Unremarkable midline structures. Degenerative changes of the imaged cervical spine. Partially empty sella. No acute intracranial hemorrhage, midline shift, abnormal extra- axial collection, hydrocephalus or intracranial mass. Study is mildly motion degraded. Mild involutional changes. Moderate T2/FLAIR hyperintense foci throughout the white matter are nonspecific however suggest chronic microvascular ischemic disease. Cerebral venous sinuses and major arterial flow voids appear patent. Mastoid air cells are clear. Partially imaged polypoid mucosal thickening of the right maxillary sinus. Skull, orbits and soft tissues are unremarkable. IMPRESSION: No acute intracranial abnormality. No acute or subacute infarct. ACT 112: Negative or not required by law. The above report was generated using voice recognition software. It may contain grammatical, syntax or spelling errors. Electronically signed by: David Bryson M.D. 08/07/2022 6:45 PM Neck MRA 08/07/22 14:08 MR angio neck wo con HISTORY: 72 years-old Male CVA acute strokelike symptoms COMPARISON: Brain MRI and MRA of the head of same day TECHNIQUE: Multiplanar multisequence MRA of the neck was obtained utilizing 3-D ewtu-qf-rootoc sequencing with MIP reformats. All measurements were obtained according to NASCET criteria. FINDINGS: Study is mildly motion degraded. Three-vessel morphology of the thoracic aortic arch. Patent common and internal carotid arteries. Patent and codominant vertebral arteries. No aneurysm, dissection, high-grade stenosis or arterial occlusion. Polypoid mucosal thickening of the right maxillary sinus incidentally noted. Degenerative changes of the cervical spine. IMPRESSION: Unremarkable MRA of the neck. ACT 112: Negative or not required by law. The above report was generated using voice recognition software. It may contain grammatical, syntax or spelling errors. Electronically signed by: David Bryson M.D. 08/07/2022 7:14 PM Head MRA 08/07/22 14:11 MR angio head wo con HISTORY: 72 years-old Male CVA acute strokelike symptoms COMPARISON: Brain MRI of same day TECHNIQUE: MRA of the head was obtained without the use of IV contrast utilizing 80 xknh-oc-jnoogc sequencing with MIP reformats. All measurements were obtained according to NASCET criteria. FINDINGS: The imaged internal carotid arteries are patent. The right A1 segment is diminutive. The middle and anterior cerebral arteries are patent. The imaged vertebral arteries appear unremarkable. The basilar and posterior cerebral arteries appear patent. No aneurysm, dissection, high-grade stenosis or arterial occlusion. IMPRESSION: Unremarkable MRA of the head. ACT 112: Negative or not required by law. The above report was generated using voice recognition software. It may contain grammatical, syntax or spelling errors. Electronically signed by: David Bryson M.D. 08/07/2022 7:11 PM PG Care Time/CCT Total # of Minutes Spent Total Time Spent with Patient: Total time spent is greater than 50% in coordination of care (as documented) at patient's floor/unit and/or counseling patient: Prolonged Care Time Prolonged Care Time: Yes Total Prolonged Care Time: 120 I spent a total of 120 min of prolonged service on this patient Coding Level of Care Code 38816 Subseq Hosp Care Lvl 3 (25 - SIGNIFICANT, SEPARATELY IDENTIFIABLE ) Diagnoses ARF (acute renal failure) N17.9 Bigeminy I49.8 Anemia D64.9 HTN (hypertension) I10 Cardiomyopathy I42.9 Enlarged prostate N40.0 HFrEF (heart failure with reduced ejection fraction) I50.20 Hypervolemia E87.70 Metabolic acidosis E87.2 TIA (transient ischemic attack) G45.9 Additional Codes Prolonged Care Time - Prolonged Care Time: Yes ([id number])
--- NOTE | 2022-08-07 13:35 | CT Scan Report ---
CT head/brain wo con CLINICAL HISTORY: 72 years-old Male with stroke alert,left sided weakness and facial droop. Acute st rokelike symptoms with left-sided weakness TECHNIQUE: Multiple axial CT images of the head were obtained without contrast. A dose lowering tech nique was utilized adhering to the principles of ALARA. CT DOSE: 537.48 mGy.cm COMPARISON: None. FINDINGS: No acute intracranial hemorrhage, midline shift, intracranial mass, hydrocephalus, territorial ischem ia or abnormal extra-axial collection. With matter hypodensities suggestive of chronic microvascular ischemic disease. Cerebral vascular calcifications. Ill-defined hypodensity involving the left brachi um pontis and left noe on image 7 series 2 is likely artifactual. The calvarium is intact. Partially imaged mild polypoid mucosal thickening of the right maxillary si nus. Unremarkable soft tissues. IMPRESSION: No acute intracranial abnormality identified. ACT 112: Negative or not required by law. The above report was generated using voice recognition software. It may contain grammatical, syntax o r spelling errors. Electronically signed by: David Bryson M.D. 08/07/2022 1:34 PM
[2022-08-07 13:40] LABS: Partial Thromboplastin Ratio 1.5
[2022-08-07] MEDS ORDERED: CLOPIDOGREL BISULFATE 300 MG TAB PO STA (14:04)
[2022-08-07] MEDS ORDERED: ASPIRIN 325 MG ECTAB PO ONE (14:05)
[2022-08-07] MEDS ORDERED: PHARMACIST DISCHARGE MED REC CONSULT PRN (14:08)
--- NOTE | 2022-08-07 18:47 | Magnetic Resonance Report ---
MR brain wo con HISTORY: 72 years-old Male CVA acute strokelike symptoms COMPARISON: Head CT of same day TECHNIQUE: Multiplanar multisequence MRI of the brain was obtained without the use of IV contrast. FINDINGS: No restricted diffusion to suggest acute or subacute infarct. Unremarkable midline structures. Degene rative changes of the imaged cervical spine. Partially empty sella. No acute intracranial hemorrhage, midline shift, abnormal extra-axial collection, hydrocephalus or intracranial mass. Study is mildly motion degraded. Mild involutional changes. Moderate T2/FLAIR hyperintense foci throughout the white matter are nonspecific however suggest chronic microvascular ischemic disease. Cerebral venous sinuses and major arterial flow voids appear patent. Mastoid air cells are clear. Par tially imaged polypoid mucosal thickening of the right maxillary sinus. Skull, orbits and soft tissue s are unremarkable. IMPRESSION: No acute intracranial abnormality. No acute or subacute infarct. ACT 112: Negative or not required by law. The above report was generated using voice recognition software. It may contain grammatical, syntax o r spelling errors. Electronically signed by: David Bryson M.D. 08/07/2022 6:45 PM
--- NOTE | 2022-08-07 19:13 | Magnetic Resonance Report ---
MR angio head wo con HISTORY: 72 years-old Male CVA acute strokelike symptoms COMPARISON: Brain MRI of same day TECHNIQUE: MRA of the head was obtained without the use of IV contrast utilizing 80 tkjz-uu-rezbvq se quencing with MIP reformats. All measurements were obtained according to NASCET criteria. FINDINGS: The imaged internal carotid arteries are patent. The right A1 segment is diminutive. The middle and a nterior cerebral arteries are patent. The imaged vertebral arteries appear unremarkable. The basilar and posterior cerebral arteries appear patent. No aneurysm, dissection, high-grade stenosis or arteri al occlusion. IMPRESSION: Unremarkable MRA of the head. ACT 112: Negative or not required by law. The above report was generated using voice recognition software. It may contain grammatical, syntax o r spelling errors. Electronically signed by: David Bryson M.D. 08/07/2022 7:11 PM
--- NOTE | 2022-08-07 19:17 | Magnetic Resonance Report ---
MR angio neck wo con HISTORY: 72 years-old Male CVA acute strokelike symptoms COMPARISON: Brain MRI and MRA of the head of same day TECHNIQUE: Multiplanar multisequence MRA of the neck was obtained utilizing 3-D jwnv-[id number]-yaqnxh sequen cing with MIP reformats. All measurements were obtained according to NASCET criteria. FINDINGS: Study is mildly motion degraded. Three-vessel morphology of the thoracic aortic arch. Patent common a nd internal carotid arteries. Patent and codominant vertebral arteries. No aneurysm, dissection, high -grade stenosis or arterial occlusion. Polypoid mucosal thickening of the right maxillary sinus incid entally noted. Degenerative changes of the cervical spine. IMPRESSION: Unremarkable MRA of the neck. ACT 112: Negative or not required by law. The above report was generated using voice recognition software. It may contain grammatical, syntax o r spelling errors. Electronically signed by: David Bryson M.D. 08/07/2022 7:14 PM
[2022-08-07] MEDS: MELATONIN 3 MG TAB PO SCH (21:14)
[2022-08-08 06:20] LABS: Hematocrit (blood only) 27.1 % (40.1-51.0); Hemoglobin 8.5 g/dl (14.0-18.0); Mean Corpuscular Hemoglobin 29.3 pg (25.0-34.0); Mean Corpuscular Hgb Conc 31.4 g/dL (32.0-36.0); Mean Corpuscular Volume 93.4 fL (80.0-100.0); RDW Coefficient of Variation 14.1 % (11.5-14.5); RDW Standard Deviation 48.3 fL (36.4-46.3); White Blood Count 7.63 K/ul (4.8-10.8)
[2022-08-08 06:49] LABS: BUN Creatinine Ratio 13.8 (10-20); Calcium 7.9 mg/dl (8.5-10.1); Chol HDL Ratio 4.1 (0-5); Creatinine Clr Calc Pharmacy 11.6 ml/min; Est GFR (African American) 11.3 ml/min; Est GFR (Non-African American) 9.7 ml/min; Potassium 4.4 mmol/L (3.5-5.1)
[2022-08-08 07:08] LABS: Estimated Average Glucose 120 mg/dl; Hemoglobin A1C 5.8 % (4.5-5.6)
[2022-08-08 07:33] LABS: Mean Platelet Volume 13.2 fL (9.4-12.4); Platelet Count 153 K/uL (130-400)
[2022-08-08] MEDS: CLOPIDOGREL BISULFATE 75 MG TAB PO SCH (08:34)
[2022-08-08] MEDS: ROSUVASTATIN CALCIUM 20 MG TAB PO SCH (08:34)
[2022-08-08] MEDS: ASPIRIN 81 MG ECTAB PO SCH (08:34)
[2022-08-08] MEDS: SODIUM BICARBONATE 650 MG TAB PO SCH ×2 (08:34→21:12)
[2022-08-08] MEDS: amLODIPine BESYLATE 5 MG TAB PO SCH (08:35)
[2022-08-08] MEDS: TAMSULOSIN HCL 0.4 MG CAP PO SCH (08:35)
[2022-08-08] MEDS: HEPARIN SOD 5,000 UNIT/0.5 ML VIAL SQ SCH ×2 (08:37→21:12)
[2022-08-08] MEDS: CALCITRIOL 0.25 MCG CAPSULE PO SCH (08:37)
[2022-08-08] MEDS: METOPROLOL TARTRATE 25 MG TAB PO SCH ×2 (08:39→21:13)
--- NOTE | 2022-08-08 08:42 | Nephrology Progress Note ---
Date of Service August 08, 2022 Assessment & Plan (1) Chronic kidney disease, stage V: Plan: * Clinically suspect CKD due to BPH and LI. Abdominal CT this admission reveals marked atrophy of both kidneys * I&O not measured yesterday. staff technologist reports PVR 70 cc * Kidney function is stable at this time. Volume status and electrolyte balance is acceptable * Mr. Mackenzie declines MANAGER IMAGE and requests medical management * Urinalysis does reveal proteinuria. SPEP/UPEP, serologic studies pending (2) BPH (benign prostatic hyperplasia): Plan: * Continue Flomax therapy * Await repeat PVR and further Urology recommendations (3) Metabolic acidosis: Plan: * Due to CKD. Continue NaHCO3 650 mg po BID (4) Anemia: Plan: * Completed Venofer infusion * Epogen administered 08/06/22 (5) Hyperparathyroidism: Plan: * Due to CKD * 25-OH Vitamin D 12.8, PTH 366.8 * Continue Calcitriol 0.25 mcg po daily (6) TIA (transient ischemic attack): Plan: * Mild residual symptoms. Now on ASA + Plavix (7) HTN (hypertension): Plan: * Amlodipine held yesterday. Allowing permissive HTN due to TIA/CVA * Continue Metoprolol Admission and Anticipated Discharge Date Admission Date: August 04, 2022 Subjective Mr. Mackenzie was evaluated in his hospital room this morning. He currently denies JAY, visual change or uremic symptoms. He reports that he is voiding w ithout difficulty Review of Systems Constitutional: no fever Eyes: no problem reported Ear, Nose, Mouth, Throat: no problem reported Respiratory: no cough and no dyspnea Cardiovascular: no chest pain Gastrointestinal: no abdominal pain, no vomiting and no diarrhea/loose stools Integumentary: no problem reported Neurologic: no confusion Physical Exam Constitutional: not in distress Eyes: PERRL, conjunctivae normal, anicteric sclerae ENMT: external ear and nose normal, oropharynx normal Neck: trachea midline, no thyromegaly Respiratory: normal respiratory effort, lungs clear to auscultation Cardiovascular: RRR, no murmur, no edema Gastrointestinal (Abdomen): normal bowel sounds, soft, nontender, no hepatosplenomegaly Skin: no rashes, warm and dry Neurologic: awake; not confused Results & Data ([facility]) Vital Signs (Past 12 Hours) Vital Signs Temp Pulse Pulse Resp BP Pulse Ox O2 Del Method 08/08/22 07:45 36.6 C 76 14 166/114 H 96 Room Air 08/08/22 03:16 36.8 C 70 18 159/76 H 95 Room Air 08/07/22 23:26 36.7 C 71 20 154/83 H 96 Room Air 08/07/22 23:00 71 Laboratory Results Laboratory Tests 08/05/22 08/05/22 08/06/22 16:17 17:30 05:43 WBC Hgb Hct Plt Count Sodium Potassium Chloride Carbon Dioxide BUN Creatinine Glucose Calcium PEP Interpretation Pending Urine PEP Interpret Pending MARY Screen Pending Anti-Proteinase 3 Pending Anti-Myeloperoxidase Pending ANCA Pending Glomerular Base Memb Ab Pending Complement C3 Pending Complement C4 Pending Free [place] LC, Quant Pending Free Lambda LC, Quant Pending Free [place]/Lambda Ratio Pending 08/08/22 08/08/22 05:51 05:51 WBC 7.63 Hgb 8.5 L Hct 27.1 L Plt Count 153 Sodium 139 Potassium 4.4 Chloride 110 H Carbon Dioxide 20 L BUN 74 H Creatinine 5.35 H* Glucose 95 Calcium 7.9 L PEP Interpretation Urine PEP Interpret AMRY Screen Anti-Proteinase 3 Anti-Myeloperoxidase ANCA Glomerular Base Memb Ab Complement C3 Complement C4 Free [place] LC, Quant Free Lambda LC, Quant Free [place]/Lambda Ratio PG Care Time/CCT Total # of Minutes Spent Total Time Spent with Patient: Total time spent is greater than 50% in coordination of care (as documented) at patient's floor/unit and/or counseling patient: Coding Level of Care Code 67748 Subseq Hosp Care Lvl 3 Diagnoses Chronic kidney disease, stage V N18.5 BPH (benign prostatic hyperplasia) N40.0 Metabolic acidosis E87.2 Anemia D64.9 Hyperparathyroidism E21.3 TIA (transient ischemic attack) G45.9 HTN (hypertension) I10
--- NOTE | 2022-08-08 16:11 | Electrocardiogram Report ---
Test Reason : Blood Pressure : / mmHG Vent. Rate : 075 BPM Atrial Rate : 075 BPM P-R Int : 166 ms QRS Dur : 086 ms QT Int : 408 ms P-R-T Axes : 034 022 139 degrees QTc Int : 455 ms Sinus rhythm with frequent , and consecutive Premature ventricular complexes Left ventricular hypertrophy with repolarization abnormality Abnormal ECG When compared with ECG of 05-AUG-2022 05:36, No significant change was found Confirmed by Suleiman Haas ([id number]) on 08/08/2022 4:11:00 PM Referred By: Sanya Magana Confirmed By:Suleiman Haas
--- NOTE | 2022-08-08 16:50 | Hospitalist Progress Note ---
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 Could be some post-renal component---> workup pending With secondary hyperparathyroidism, iPTH 300s, Vit D 12, -started calcitriol BPs remain elevated but previously allowing permissive HTN for TIA/CVA Making plenty of urine Spot urine protein/creatinine ratio quite elevated at 5.0 intact PTH elevated in the upper 300s Creatinine has not improved much since admission, however volume overload is now much improved after given IV diuretics-creatinine remains stable at 5.3 Metabolic acidosis ongoing and mild with serum bicarbonate 20, potassium remains normal -check serology and paraproteinemia workup (SPEP, UPEP, ANCA, complement, MARY) all pending -Started calcitriol -follow BMP, UOP, BPs, volume status -broached the topic of dialysis but not needed at this time-hopeful for some renal recovery. Pt has indicated to nephrology that he would not want dialysis -due to persistent volume overload-was receiving on lasix 40 mg IV daily and dosed daily based on response and renal function--> Neuro from [facility] recommends caution with lasix due to TIA/CVA -avoid nephrotoxins, renally dose all medications -added amlodipine 2.5mg po daily for hypertension and titrating up on metoprolol -Nephrology indicates no need to follow-up with nephrology as an outpatient due to patient not desiring dialysis in the future -He can follow-up with a PCP to monitor renal function as an outpatient (2) Bigeminy: Plan: with frequent PVCs and bigeminy-improving now with starting metoprolol but still quite frequent - without chest pain or ST elevation, no syncope - electrolytes are stable with K >4 and Mg > 2.0 ECHO with mildly reduced EF 40-45%, global hypokinesis, mild LVH, mild-mod MR, mod Pulm HTN -Appreciate Cardiology consultation -metoprolol started on admission-->increase to 75mg po bid and continue to titrate up as able to--> plan to switch to Toprol XL on discharge once titrated up to proper dosing -continue to monitor on tele (3) Anemia: Plan: Anemia mixed of iron deficiency and of chronic kidney disease--> presented with hgb 7.8 Transferrin sat low at 13%--> gave Venofer 300mg IV daily x 3 days, received one dose epo on 08/06 - he denies any UGI symptoms or changes in stools-fecal occult here is negative - b12 and folate normal, TSH normal - platelet and WBC counts normal - transfused 1 unit prbc and hgb now up to 8.5 - will start po FeSO4 and this should be continued on discharge -follow CBC (4) HTN (hypertension): Plan: BPs continue to be elevated Previously allowing permissive hypertension in the setting of TIA/CVA, but will now again try to improve blood pressures -started metoprolol and titrate up to 75 Mg p.o. twice daily -added on amlodipine 2.5 mg daily-titrate up as needed (5) Cardiomyopathy: Plan: newly diagnosed, EF 40-45% mildly reduced, global hypokinesis no angina or ischemic changes on ECG appreciate Cardiology consultation -could be related to frequent PVCs -plan to start Toprol XL on discharge after titrated up on metoprolol tartrate cannot start ACEi or ARB due to NIKOS follow as outpt with Cardiology in [facility] office (6) Enlarged prostate: Plan: Prostatomegaly with chronic bladder outlet obstruction noted on his CT abd/pelvis DDX: BPH vs. cancer - Guan placed due to this in setting of NIKOS - draining adequate amount of light urine - initiated Flomax 0.4 mg daily PSA here minimally elevated at 4 -appreciate Urology consultation-does not think post-renal obstruction is the cause and said ok to remove Guan, bladder scan for PVR-minimal PVRs thus far -repeat PSA in 3 months as was checked after guan placement -pt reported to Urologist he does not want to f/u in office due to cost (7) HFrEF (heart failure with reduced ejection fraction): Plan: as above, with chronic HFrEF volume overload due to NIKOS (8) Hypervolemia: Plan: secondary to NIKOS, ongoing but improving--> peripheral edema now resolved, only minimal rales on exam, weight is down, net neg I/O No further Lasix needed today, but may need a low daily dose of Lasix on discharge-we will discuss with nephrology monitor I/Os -continue low sodium diet, 1500mL fluid restriction, renal diet (9) Metabolic acidosis: Plan: due to NIKOS, serum HCO3 17-18 started NaHCO3 650mg po bid and now improving follow BMP (10) TIA (transient ischemic attack): Plan: Stroke alert called on 08/07 at 12:45 for left sided facial droop and weakness CT head negative, symptoms almost completely resolved within 30 min NIH stroke score initially 6 and then down to 1 at time of [facility] consult-no TNK given Remains with NIH stroke score of 1 for mild left facial droop residual and 08/08 MRI of the brain with and without contrast is negative for stroke, but suspect small stroke not picked up on our MRI scanner MRA head/neck is negative -loaded with ASA 325 and Plavix 300mg and then convert to ASA 81 and Plavix 75mg daily x 3 weeks and then go to monotherapy with ASA 81mg -start high intensity statin with Crestor, lipid panel is acceptable -monitor for Afib but none so far, ECHO no thrombus from admission -Hemoglobin A1c is normal -Continue neuro checks -PT/OT/ST -no need for Neuro consult here as case discussed with [facility] Neuro--> advised call back if symptoms change again -Okay to tightly control blood pressure now Plan DVT proph- heparin SQ Dispo-continued stay PCU, however if renal function remains stable again tomorrow and he has improved blood pressure control, would be okay to discharge home with close follow-up with PCP. Consult placed to case management to help arrange new patient appointment with a PCP in the [place] area close to his home discussed all care with at bedside Admission and Anticipated Discharge Date Admission Date: August 04, 2022 Subjective Patient reports feeling very well today. He is eating and drinking, voiding with minimal postvoid residuals. He denies chest pains. He reports only very minimal shortness of breath. His leg swelling is much improved. He is out of bed to chair and worked with physical therapy today. He asks when he will be discharged but states that while he is anxious for discharge, he wants to wait until we feel it is safe for him to be discharged. I discussed his care with nephrology. Telemetry with sinus rhythm, first-degree AV block, bigeminy, rates in the 60s to 70s. Review of Systems Review of Systems: All systems reviewed & are unremarkable except as noted in HPI & below Physical Exam Constitutional: WD/WN, vitals as above Eyes: + anicteric sclerae ENMT: external ear and nose normal, oropharynx normal Neck: trachea midline, no thyromegaly Respiratory: normal respiratory effort, lungs clear to auscultation normal respiratory effort; no cough Auscultation: lungs clear to auscultation bilaterally and + crackles (Minimal on the left at the base); no rhonchi and no wheezes Cardiovascular: RRR, no murmur, no edema Rate/Rhythm: regular rate and regular rhythm Heart Sounds: + murmur (2/6 systolic murmur at apex) Vessels: dorsalis pedis pulses present (1+) Extremities: + edema (trace edema legs bilat to mid tibia-much better) Chest (Breasts): Chest: normal inspection of chest Gastrointestinal (Abdomen): normal bowel sounds, soft, nontender, no hepatosplenomegaly Musculoskeletal: Extremities: extremities normal to inspection; no cyanosis and no clubbing Skin: no rashes, warm and dry Neurologic: CN's II-XI intact bilaterally (Except very mild left flattening of nasolabial fold), moves all extremities and awake; no focal motor deficits Speech / Cognition: no expressive aphasia Motor/Sensory: no tremor Psychiatric: A+Ox3, euthymic affect Lymphatic: no lymphedema Results & Data Results & Data ([facility]) Vital Signs (Past 12 Hours) Vital Signs Temp Pulse Pulse Resp BP Pulse Ox O2 Del Method 08/08/22 15:38 36.6 C 75 16 155/85 H 99 Room Air 08/08/22 11:53 36.5 C 72 18 145/62 H 100 Room Air 08/08/22 06:25 67 08/08/22 08:00 Room Air 08/08/22 07:45 36.6 C 76 14 166/114 H 96 Room Air Laboratory Results 08/08/22 08/08/22 08/08/22 Range/Units 05:51 05:51 05:51 WBC 7.63 (4.8-10.8) K/ul RBC 2.90 L (4.63-6.08) M/uL Hgb 8.5 L (14.0-18.0) g/dl Hct 27.1 L (40.1-51.0) % MCV 93.4 (80.0-100.0) fL MCH 29.3 (25.0-34.0) pg MCHC 31.4 L (32.0-36.0) g/dL RDW Std Deviation 48.3 H (36.4-46.3) fL RDW Coeff of Tobin 14.1 (11.5-14.5) % Plt Count 153 (130-400) K/uL MPV 13.2 H (9.4-12.4) fL Sodium 139 (136-145) mmol/L Potassium 4.4 (3.5-5.1) mmol/L Chloride 110 H (98-107) mmol/L Carbon Dioxide 20 L (21-32) mmol/L Anion Gap 9 (3-11) BUN 74 H (6-23) mg/dl Creatinine 5.35 H* (0.6-1.4) mg/dl Est Cr Clr Drug Dosing 11.6 ml/min Est GFR ( Amer) 11.3 ml/min Est GFR (Non-Af Amer) 9.7 ml/min BUN/Creatinine Ratio 13.8 (10-20) Glucose 95 (70-99(Fasting)) mg/dl Estimat Average Glucose 120 mg/dl Hemoglobin A1c 5.8 H (4.5-5.6) % Calcium 7.9 L (8.5-10.1) mg/dl Triglycerides 110 (0-150) mg/dl Cholesterol 164 (0-200) mg/dl LDL Cholesterol, Calc 102 mg/dl VLDL Cholesterol, Calc 22 (0-30) mg/dl HDL Cholesterol 40 mg/dl Cholesterol/HDL Ratio 4.1 (0-5) PG Care Time/CCT Total # of Minutes Spent Total Time Spent with Patient: Total time spent is greater than 50% in coordination of care (as documented) at patient's floor/unit and/or counseling patient: Coding Level of Care Code 81578 Subseq Hosp Care Lvl 3 Diagnoses ARF (acute renal failure) N17.9 Bigeminy I49.8 Anemia D64.9 HTN (hypertension) I10 Cardiomyopathy I42.9 Enlarged prostate N40.0 HFrEF (heart failure with reduced ejection fraction) I50.20 Hypervolemia E87.70 Metabolic acidosis E87.2 TIA (transient ischemic attack) G45.9
[2022-08-08] MEDS: MELATONIN 3 MG TAB PO SCH (21:13)
[2022-08-09 06:07] LABS: Creatinine Ur 30 mg/dL (20-320); Protein, Urine Random 155 mg/dL (5-25); Ur Protein/Creat Ratio mg/g 5167 mg/g creat (25-148); Urine Abnormal Protein Band 1 DNR mg/dL (NONE DETECTED); Urine Abnormal Protein Band 2 DNR mg/dL (NONE DETECTED); Urine Abnormal Protein Band 3 DNR mg/dL (NONE DETECTED); Urine Protein/Creatinine Ratio 5.167 (0.025-0.148)
[2022-08-09 06:13] LABS: Basophils # (auto) 0.07 K/uL (0-0.2); Basophils % (auto) 0.9 %; Eosinophils # (auto) 0.18 K/uL (0-0.50); Eosinophils % (auto) 2.4 %; Hematocrit (blood only) 26.3 % (40.1-51.0); Hemoglobin 8.3 g/dl (14.0-18.0); Immature Granulocytes # (auto) 0.03 K/uL (0.00-0.02); Immature Granulocytes % (auto) 0.4 %; Lymphocytes # (auto) 1.36 K/uL (1.2-3.4); Lymphocytes % (auto) 18.3 %; Mean Corpuscular Hemoglobin 29.4 pg (25.0-34.0); Mean Corpuscular Hgb Conc 31.6 g/dL (32.0-36.0); Mean Corpuscular Volume 93.3 fL (80.0-100.0); Monocytes % (auto) 12.1 %; Neutrophils # (auto) 4.88 K/uL (1.4-6.5); Neutrophils % (auto) 65.9 %; Platelet Count 148 K/uL (130-400); RDW Standard Deviation 47.7 fL (36.4-46.3); Red Blood Count 2.82 M/uL (4.63-6.08); White Blood Count 7.42 K/ul (4.8-10.8)
[2022-08-09 06:46] LABS: BUN Creatinine Ratio 12.6 (10-20); Calcium 8.2 mg/dl (8.5-10.1); Creatinine Clr Calc Pharmacy 10.4 ml/min; Est GFR (African American) 9.9 ml/min; Est GFR (Non-African American) 8.6 ml/min; Potassium 4.3 mmol/L (3.5-5.1)
[2022-08-09] MEDS ORDERED: FERROUS SULFATE 325 MG TAB PO SCH (08:00)
--- NOTE | 2022-08-09 08:26 | Nephrology Progress Note ---
Date of Service August 09, 2022 Assessment & Plan (1) Chronic kidney disease, stage V: Plan: * Clinically suspect chronic renal injury due to BPH and LI * Abdominal CT 08/04/22 revealed marked atrophy of both kidneys * PVR only 70 cc following [place] catheter removal * Kidney function is again declining. UPCR 5.2 c/w nephrotic syndrome. UPEP negative for monoclonal protein. Serologic evaluation is pending * Do not feel that steroid or immunosuppressive therapy would be of benefit due to renal atrophy and advanced renal impairment at the time of presentation * Discussed dialysis in detail w/ patient again this morning. He does not feel that dialysis will provide him with quality of life and is not consistent with his values. He requests only conservative medical management. He does not desire home health or hospice when he returns home (2) BPH (benign prostatic hyperplasia): Plan: * Continue Flomax therapy * Await repeat PVR and further Urology recommendations (3) Metabolic acidosis: Plan: * Due to CKD. Continue NaHCO3 650 mg po BID (4) Anemia: Plan: * Completed Venofer infusion * Epogen administered 08/06/22 (5) Hyperparathyroidism: Plan: * Due to CKD * 25-OH Vitamin D 12.8, PTH 366.8 * Continue Calcitriol 0.25 mcg po daily (6) TIA (transient ischemic attack): Plan: * Mild residual symptoms. Now on ASA + Plavix (7) HTN (hypertension): Plan: * Amlodipine held yesterday. Allowing permissive HTN due to TIA/CVA * Continue Metoprolol Admission and Anticipated Discharge Date Admission Date: August 04, 2022 Subjective Mr. Mackenzie was evaluated in his hospital room this morning. He currently denies JAY, visual change or uremic symptoms. He reports that he is voiding without difficulty Review of Systems Constitutional: no fever Eyes: no problem reported Ear, Nose, Mouth, Throat: no problem reported Respiratory: no cough and no dyspnea Cardiovascular: no chest pain Gastrointestinal: no abdominal pain, no vomiting and no diarrhea/loose stools Integumentary: no problem reported Neurologic: no confusion Physical Exam Constitutional: not in distress Eyes: PERRL, conjunctivae normal, anicteric sclerae ENMT: external ear and nose normal, oropharynx normal Neck: trachea midline, no thyromegaly Respiratory: normal respiratory effort, lungs clear to auscultation Cardiovascular: RRR, no murmur, no edema Gastrointestinal (Abdomen): normal bowel sounds, soft, nontender, no hepatosplenomegaly Skin: no rashes, warm and dry Neurologic: awake; not confused (slight R facial droop) Results & Data ([facility]) Vital Signs (Past 12 Hours) Vital Signs Temp Pulse Pulse Resp BP Pulse Ox O2 Del Method 08/09/22 08:01 37 C 78 18 127/88 97 Room Air 08/09/22 02:24 36.7 C 70 20 151/74 H 96 Room Air 08/08/22 23:00 66 08/08/22 20:30 Room Air 08/08/22 22:34 36.9 C 69 20 133/84 98 Room Air Laboratory Results Laboratory Tests 08/05/22 08/09/22 08/09/22 17:30 05:46 05:46 WBC 7.42 Hgb 8.3 L Hct 26.3 L Plt Count 148 Sodium 136 Potassium 4.3 Chloride 107 Carbon Dioxide 21 BUN 75 H Creatinine 5.94 H* D Glucose 97 Calcium 8.2 L Protein/Creatinin Ratio 5.167 H 08/05/12 UIEP: The urine protein electrophoresis pattern is consistent with non- selective glomerular proteinuria. Laboratory Tests 08/05/22 08/06/22 16:17 05:43 PEP Interpretation Pending MARY Screen Pending Anti-Proteinase 3 Pending Anti-Myeloperoxidase Pending ANCA Pending Glomerular Base Memb Ab Pending Complement C3 Pending Complement C4 Pending Free [place] LC, Quant Pending Free [place] LC, Quant Pending Free [place]/Lambda Ratio Pending PG Care Time/CCT Total # of Minutes Spent Total Time Spent with Patient: Total time spent is greater than 50% in coordination of care (as documented) at patient's floor/unit and/or counseling patient: Coding Level of Care Code 01019 Subseq Hosp Care Lvl 3 Diagnoses Chronic kidney disease, stage V N18.5 BPH (benign prostatic hyperplasia) N40.0 Metabolic acidosis E87.2 Anemia D64.9 Hyperparathyroidism E21.3 TIA (transient ischemic attack) G45.9 HTN (hypertension) I10
[2022-08-09] MEDS: TAMSULOSIN HCL 0.4 MG CAP PO SCH (08:43)
[2022-08-09] MEDS: ASPIRIN 81 MG ECTAB PO SCH (08:43)
[2022-08-09] MEDS: CLOPIDOGREL BISULFATE 75 MG TAB PO SCH (08:43)
[2022-08-09] MEDS: HEPARIN SOD 5,000 UNIT/0.5 ML VIAL SQ SCH (08:43)
[2022-08-09] MEDS: SODIUM BICARBONATE 650 MG TAB PO SCH (08:43)
[2022-08-09] MEDS: ROSUVASTATIN CALCIUM 20 MG TAB PO SCH (08:43)
[2022-08-09] MEDS: CALCITRIOL 0.25 MCG CAPSULE PO SCH (08:43)
[2022-08-09] MEDS: METOPROLOL TARTRATE 25 MG TAB PO SCH (08:43)
[2022-08-09] MEDS ORDERED: STROKE PATIENT DISCHARGE STA (15:14)
--- NOTE | 2022-08-09 15:34 | Discharge Summary ---
Date of Service date of admission - August 04, 2022 date of discharge - August 09, 2022 Admission HPI Per Admitting Provider 72 YOM with medical history of: Osteoarthritis, hip replacement, decrease food intake. Patient comes to the EMD today for complaints of fatigue, dyspnea. Routine labs were drawn noting elevated BUN and [facility], and anemia. ECG was done revealing frequent PVC and telemetry revealing bi-geminy. Patient had CT scan of the abdomen performed, noting enlarged prostate with bladder outlet obstruction. He was typed and crossmatched, Guan placed to gravity and UA sent. Hospitalist was consulted for admission. Patient does not routinely follow with physician and he is not on any medications. He previously had hip replacement in 2020. He just reports being more dyspneic throughout the day but getting worse when he lays flat, he also has noticed increase in peripheral edema of his feet that gets less when he gets up in the morning. He notes that his appetite has been decreasing over the past month or so and he is not eating as much. For his urination he notes that he has been going more frequently but is without pain, feels as he is emptying his bladder, notes no blood in his urine. He has no abdominal pain or burning and no change to his stools color. He does endorse family history of iron deficiency. He has never had EGD or Colonoscopy performed and has not seen a urologist. COVID test on admission is: NEGATIVE Principal Diagnosis Acute renal failure Discharge Exam gen - NAD mouth - MMM neck - no JVD heart - RRR, s1 s2, 1/6 systolic murmur LLSB lungs - CTA b/l abd - soft NT ND BS+ ext - no edema, pulses 2+ b/l psych - a/o x 3 neuro - no facial droop; speech clear/fluent; strength 5/5 x 4 exts Discharge Data Allergies Allergy/AdvReac Type Severity Reaction Status Date / Time No Known Allergies Allergy Verified 08/16/22 14:43 Consultations [facility] Nephrology [facility] Cardiology [facility] Urology Procedures Performed Echocardiogram - * EF 40-45% * global hypokinesis * mild LVH * severe left atrial dilatation * mild-moderate mitral regurgitation * moderate pulmonay HTN; RVSP 50mmHg Ordered Studies Abdomen/Pelvis CT 08/04/22 15:14 CT SCAN OF THE ABDOMEN AND PELVIS WITHOUT IV CONTRAST CLINICAL HISTORY: Acute renal insufficiency. COMPARISON STUDY: Lumbar spine radiographs dated 06/17/2021. TECHNIQUE: CT scan of the abdomen and pelvis is performed from the lung bases to the proximal femora. Images are reviewed in the axial, sagittal, and coronal planes. IV contrast was not administered for this examination. A dose lowering technique was utilized adhering to the principles of ALARA. CT DOSE: 477.70 mGy.cm FINDINGS: Lung bases: The heart is in the large and without pericardial effusion. There are scattered coronary artery calcifications. There is diminished attenuation of the cardiac blood pool as compared to the myocardium suggesting anemia. There are small pleural effusions with dependent consolidation. Emphysematous change is suspected. Parenchymal scarring is seen at both lung bases. A 1.2 cm calcification-containing nodule is seen in the lingula on image #43. A calcified granuloma seen at the right lung base. Liver: The unenhanced liver is normal in size, contour, and attenuation. There is no intrahepatic biliary ductal dilatation. Scattered hepatic cysts measure up to 17 mm. Gallbladder: There are tiny calcified gallstones without CT evidence of acute cholecystitis. Spleen: Normal in size and attenuation. Pancreas: The unenhanced pancreas is moderately atrophic and grossly unremarkable. Adrenal glands: Unremarkable. Kidneys: The unenhanced kidneys are atrophic and without hydronephrosis. There are no renal calculi identified. A 1.9 cm cyst is noted in the left kidney. Abdominal vasculature: The abdominal aorta is normal in course and caliber noting mild atherosclerotic calcification. Bowel: There is moderate to advanced colonic diverticulosis without CT evidence of acute diverticulitis. No bowel obstruction is seen. The appendix is well- visualized and normal. Peritoneum: There is no intraperitoneal free air or abdominal ascites. There is a fat-containing umbilical hernia. Lymphadenopathy: None. Pelvic viscera: Evaluation of the pelvis is degraded by streak artifact from a left hip arthroplasty. The prostate gland is enlarged and heterogeneous noting median lobe hypertrophy. The bladder is distended, and the wall appears thickened/trabeculated indicating chronic outlet obstruction. There are large left and small right-sided hydroceles. There is evidence of previous left inguinal herniorrhaphy. A small fat-containing inguinal hernia is noted on the right. Skeletal structures: The skeletal structures are osteopenic. There is moderate lumbosacral spondylosis. No lytic or blastic lesions are seen. A left hip arthroplasty is in place. Arthritic change is seen in the right hip. IMPRESSION: 1. No acute infectious or inflammatory findings are identified in the abdomen or pelvis. 2. Cardiomegaly and small pleural effusions. 3. Colonic diverticulosis without CT evidence of acute diverticulitis. 4. Prostatomegaly with evidence of chronic bladder outlet obstruction. 5. Large left and small right hydroceles. 6. Cholelithiasis. 7. Additional findings as above. ACT 112: Negative or not required by law. Electronically signed by: Samy Chester M.D. 08/04/2022 4:58 PM Chest X-Ray 08/04/22 18:29 XR chest 1V portable CLINICAL HISTORY: dyspnea, eval heart size/pulmonary edema TECHNIQUE: Single frontal radiograph of the chest was obtained. Comparison: Comparison is made to chest radiograph 07/21/[address] abdomen pelvis 08/04/2022 FINDINGS: No lines and tubes are seen. Cardiomegaly is noted. Prominence and cephalization of the vasculature is seen. There is an 11 mm density in the left lower lung. This corresponds to a calcified granuloma seen on prior CT. There are small bilateral pleural effusions. IMPRESSION: Cardiomegaly with mild pulmonary edema. Likely small bilateral pleural effusions. ACT 112: Negative or not required by law. Electronically signed by: Franki Bang M.D. 08/04/2022 6:[address] 08/07/22 13:01 CT head/brain wo con CLINICAL HISTORY: 72 years-old Male with stroke alert,left sided weakness and facial droop. Acute strokelike symptoms with left-sided weakness TECHNIQUE: Multiple axial CT images of the head were obtained without contrast. A dose lowering technique was utilized adhering to the principles of ALARA. CT DOSE: 537.48 mGy.cm COMPARISON: None. FINDINGS: No acute intracranial hemorrhage, midline shift, intracranial mass, hy drocephalus, territorial ischemia or abnormal extra-axial collection. With matter hypodensities suggestive of chronic microvascular ischemic disease. Cerebral vascular calcifications. Ill-defined hypodensity involving the left brachium pontis and left noe on image 7 series 2 is likely artifactual. The calvarium is intact. Partially imaged mild polypoid mucosal thickening of the right maxillary sinus. Unremarkable soft tissues. IMPRESSION: No acute intracranial abnormality identified. ACT 112: Negative or not required by law. The above report was generated using voice recognition software. It may contain grammatical, syntax or spelling errors. Electronically signed by: David Bryson M.D. 08/07/2022 1:34 PM Brain MRI 08/07/22 14:08 MR brain wo con HISTORY: 72 years-old Male CVA acute strokelike symptoms COMPARISON: Head CT of same day TECHNIQUE: Multiplanar multisequence MRI of the brain was obtained without the use of IV contrast. FINDINGS: No restricted diffusion to suggest acute or subacute infarct. Unremarkable midline structures. Degenerative changes of the imaged cervical spine. Partially empty sella. No acute intracranial hemorrhage, midline shift, abnormal extra- axial collection, hydrocephalus or intracranial mass. Study is mildly motion degraded. Mild involutional changes. Moderate T2/FLAIR hyperintense foci throughout the white matter are nonspecific however suggest chronic microvascular ischemic disease. Cerebral venous sinuses and major arterial flow voids appear patent. Mastoid air cells are clear. Partially imaged polypoid mucosal thickening of the right maxillary sinus. Skull, orbits and soft tissues are unremarkable. IMPRESSION: No acute intracranial abnormality. No acute or subacute infarct. ACT 112: Negative or not required by law. The above report was generated using voice recognition software. It may contain grammatical, syntax or spelling errors. Electronically signed by: David Bryson M.D. 08/07/2022 6:45 PM Neck MRA 08/07/22 14:08 MR angio neck wo con HISTORY: 72 years-old Male CVA acute strokelike symptoms COMPARISON: Brain MRI and MRA of the head of same day TECHNIQUE: Multiplanar multisequence MRA of the neck was obtained utilizing 3-D [id number]-[id number] sequencing with MIP reformats. All measurements were obtained according to NASCET criteria. FINDINGS: Study is mildly motion degraded. Three-vessel morphology of the thoracic aortic arch. Patent common and internal carotid arteries. Patent and codominant vert ebral arteries. No aneurysm, dissection, high-grade stenosis or arterial occlusion. Polypoid mucosal thickening of the right maxillary sinus incidentally noted. Degenerative changes of the cervical spine. IMPRESSION: Unremarkable MRA of the neck. ACT 112: Negative or not required by law. The above report was generated using voice recognition software. It may contain grammatical, syntax or spelling errors. Electronically signed by: David Bryson M.D. 08/07/2022 7:14 PM Head MRA 08/07/22 14:11 MR angio head wo con HISTORY: 72 years-old Male CVA acute strokelike symptoms COMPARISON: Brain MRI of same day TECHNIQUE: MRA of the head was obtained without the use of IV contrast utilizing 80 cqka-rg-hrujnu sequencing with MIP reformats. All measurements were obtained according to NASCET criteria. FINDINGS: The imaged internal carotid arteries are patent. The right A1 segment is diminutive. The middle and anterior cerebral arteries are patent. The imaged vertebral arteries appear unremarkable. The basilar and posterior cerebral arteries appear patent. No aneurysm, dissection, high-grade stenosis or arterial occlusion. IMPRESSION: Unremarkable MRA of the head. ACT 112: Negative or not required by law. The above report was generated using voice recognition software. It may contain grammatical, syntax or spelling errors. Electronically signed by: David Bryson M.D. 08/07/2022 7:11 PM Hospital Course (1) ARF (acute renal failure): Presenting creatinine was 5.4 with BUN of 72. Baseline BUN 21, and [facility] 1.28 in 2020. Duration of ARF uncertain but likely for several months given his dyspnea & LE edema. Imaging showed atrophic kidneys b/l along with enlarged prostate but no hydronephrosis. UA with 3+ protein, 3+ blood. Guan catheter was placed and no significant improvement was seen with such. Guan removed 08/08 and PVRs following guan removal were acceptable. [facility] nephrology was consulted. They postulated a working differential of acute glomerulonephritis, paraproteinemia, or underlying advanced CKD. SPEP, UPEP, ANCA, complements, MARY all dispatched and were pending at time of discharge. Patient had secondary hyperparathyroidism with intact PTH 300s and low 25-OH Vit D of 12. Calcitriol initiated. Creatinine worsened during the stay with attempts at diuresis. Discharge creatinine was 5.94. However, volume status was markedly improved with decreased edema, less dyspnea, etc. Metabolic acidosis was ongoing and thus he will continue sodium bicarbonate supplementation at home. Dialysis was discussed with patient and his family. Initially they stated they were not interested. However, on day of discharge, he began to reconsider this and thus asked for an outpatient referral to nephrology if indeed he wants to pursue it. He was asked to check his weight daily at home, watch fluid and salt intake, and to use bumex 1mg daily prn for weight gain/dyspnea/edema. He is at high risk of decompensation and will need close f/u with his PCP and/or nephrology. He will need a repeat BMP in 1 week post-discharge. (2) Bigeminy: Frequent PVCs and bigeminy were seen during the stay. These improved with addition of metoprolol. ECHO with mildly reduced EF 40-45%, global hypokinesis, mild LVH, mild-mod MR, mod Pulm HTN. Seen by [facility] Cardiology and metoprolol was advised. He was titrated to 75mg BID by the time of discharge. (3) Anemia: Presented with hgb 7.8. Iron studies c/w iron deficiency and anemia of chronic kidney disease. s/p Venofer x 3 doses and 1 dose of epogen on 08/06/22. s/p 1 unit of PRBCs while here. Fecal occult was negative. B12/folate/TSH all normal. Discharge hemoglobin was 8.3 He will need a repeat CBC in 1 week post-discharge for stability. (4) HTN (hypertension): Cont metoprolol 75mg BID and tamsulosin 0.4mg daily. Bumex prn. (5) Cardiomyopathy: Echo with EF 40-45% and global hypokinesis of LV. no angina or ischemic changes on ECG. Seen by [facility] Cardiology - 2nd to frequent PVCs? LICHA / ARB contraindication due to advanced CKD. He ultimately should have [facility] Cardiology follow-up in the [facility] office. Fluid and salt restriction along with daily weights discussed extensively with pt and his family at discharge. (6) Enlarged prostate: Prostatomegaly with chronic bladder outlet obstruction noted on his CT abd/pelvis. PSA here minimally elevated at 4. [facility] Urology consulted and did not think post-renal obstruction was the cause of his acute renal failure. Guan was removed. He should continue on flomax. PSA should be rechecked in 3 months. Patient reported to Urologist he did not want to f/u in office due to cost. (7) HFrEF (heart failure with reduced ejection fraction): see above main component/contributor of his volume overload was the acute renal failure. (8) Hypervolemia: Secondary to Acute renal failure - IMPROVED. Continue low sodium diet, 1500mL fluid restriction, renal diet, daily weights, etc at home. BUMEX 1mg prn. (9) Metabolic acidosis: Due to acute renal failure (probably this is now his baseline). Continue NaHCO3 650mg po bid. (10) TIA (transient ischemic attack): Stroke alert called on 08/07 at 12:45 for left sided facial droop and weakness CT head negative, symptoms almost completely resolved within 30 min NIH stroke score initially 6 and then down to 1 at time of Telestroke consult-no TNK given MRI of the brain with and without contrast was negative for stroke MRA head/neck is negative Telemetry - no a.fib Echo - no thrombus or source of embolus loaded with ASA 325 and Plavix 300mg and then converted to ASA 81 and Plavix 75mg daily x 3 weeks and then go to monotherapy with ASA 81mg thereafter LDL was 102 on lipid profile - he was started on simvastatin 20mg once daily the facial droop was resolved on day of discharge PT/OT/Speech saw patient in consult - cleared for home Neuro consult deferred here as case was discussed with TeleStroke Neuro Total Time Total Time Spent Total Time Spent (In Minutes): 45 Discharge Plan Discharge Items Patient Disposition: Home - Self-Care Reason For Visit: ANEMIA, RENAL FAILURE Discharge Diagnosis: 1. acute renal failure - advanced kidney disease 2. congestive heart failure 3. probable "TIA" event leading to droopy left face; MRI brain negative for stroke Activity: As commented below Activity Comment: light activities as tolerated Non-emergency contact: Primary Care Provider and Business Process Consultant Call non-emergency contact if: you have any medication questions and your symptoms worsen Follow-up/Referrals: Jose Grey MD [Physician] - 08/17/22 3:15 pm Sunita Foster MD [Physician] - 08/25/22 1:20 pm Diet: Dialysis Renal Fluids: 1500ml (6 cups) Addtl Attending Provider Instructions: Mr Mackenzie, You were hospitalized for fatigue and shortness of breath. These symptoms occurred as a result of worsening kidney disease as well as heart disease/congestive heart failure. The kidney disease is advanced. Your congestive heart failure is mild. The combination of the 2 problems led to fluid retention which, in turn, causes shortness of breath, edema in your legs/feet, etc. Your kidney function level in the blood is called "creatinine." Normal creatinine levels are about 1. Your kidney function level has been fluctuating between 5.2 and 5.9 during this stay. You are at risk of needing dialysis in the next several months. We removed excess water build-up in the lungs and throughout the body by using diuretics ("water pills"). You will be at ongoing risk of continued water retention problems because of y our heart & kidney troubles. Finally, you had an episode when the left side of your face was droopy. MRI brain did not show a stroke. The droopy face did improve while here. It is likely that you had something called a "TIA" event (see handout). Recommendations - 1. check your weight EVERY MORNING. It is best to check your weight after you have emptied your bladder. If you notice any weight gain of more than 2-3 pounds over 1-2 days this is likely fluid/water retention. If you notice you are gaining weight and/or short of breath and/or you see fluid in your legs please START the bumetanide and take every day until your symptoms are resolved and your weight is back to baseline weight. If you have any concerns about your fluid please reach out to your doctors at the [place] office. It is always better to address the problem sooner rather than later. 2. new medications for your heart and kidneys (and to prevent another TIA event) - * aspirin 81mg daily indefinitely - this is for your blood vessels in your heart, brain, etc * calcitriol 0.25mcg once daily - this is for your kidneys * clopidogrel 75mg once daily x 3 weeks then STOP; this is for your recent "TIA" event * metoprolol 75mg twice daily - this is for your heart and blood pressure * simvastatin 20mg once daily - this is for cholesterol * sodium bicarbonate 650mg twice daily - this is for your kidneys 3. new medication for enlarged prostate - * tamsulosin 0.4mg once daily every morning 4. new medication for fluid build-up/retention of water - * bumetanide 1mg every morning as needed for weight gain/shortness of breath/water retention 5. limit total fluid intake to no more than 1500cc over a 24-hour period 6. limit total salt intake to no more than 2000mg in a 24-hour period; avoid fried foods, fast foods, soups, deli meat/sausage/hot dogs, chips, etc 7. we have set you up with the kidney (nephrology) specialist for later this month if you wish to discuss the potential need for dialysis Of note - all medications have been sent into your pharmacy for you in [place] Follow-up - see separate section Return to [facility] if - * you are short of breath or have chest pains * you are concerned about fluid weight gain * you have fevers over 100 degrees * you have decreased urine production/output or you have difficulty passing your urine * any other concerns It was our pleasure to care for you at [facility]! Dr Sophie Andersontl [employer] Provider Instructions: Call 911 and go to the Emergency Room if: * You have tightness or pain in your chest that does not go away with rest or Nitroglycerin * You are very short of breath even with rest Call your doctor if any of the following symptoms or problems start or get worse: * Shortness of breath or difficulty breathing * Wake up at night short of breath * Chest pain * Cough * Swelling of your hands, fee, or legs * More fatigued or tired with your normal activity * Palpitations - sudden fast heart beats WEIGHT * Weigh yourself every morning after using the bathroom. * Use the same scale. * Wear the same amount of clothing. * Write your weight down on your chart. * Call your doctor if you gain more than 2-3 pounds in 1-2 days. This is typically the first sign of fluid weight gain from your kidney and heart disease. MEDICATIONS * Use this discharge instruction sheet for instructions. * Take your medications at the time your doctor ordered. * Do not skip a dose of your medicines. * If you miss a dose of medicine, take as soon as possible, but DO NOT DOUBLE A DOSE. * Read your medicine information when you get home. * Know all of the side effects of your medicine. * Call your doctor's office if you have any side effects. * Be sure all of your doctors know what medicine and herbs you take (including cold, flu, and herbal medicine). * Pain Medicine: If you do not get relief from your pain, please call your doctor for help. Take the following with you to your follow-up doctor appointments: * Weight Chart * Medication List * List of questions Do not drink excessive alcohol, beer or wine. Pending Studies at Discharge: Yes Studies:: Tests for your kidneys Stand-Alone Forms: Medications to Prevent Stroke, My [facility] Embarkly, Smoking Cessation Medications and DC Order Prescriptions: New clopidogrel 75 mg Tablet 75 mg PO QAM 21 Days Qty: 21 0RF aspirin 81 mg Tablet,Delayed Release (Dr/Ec) 81 mg PO QAM Qty: 90 3RF tamsulosin 0.4 mg Capsule 0.4 mg PO QAM Qty: 30 5RF Rx Instructions: for enlarged prostate sodium bicarbonate 650 mg Tablet 650 mg PO BID Qty: 60 5RF calcitriol 0.25 mcg Capsule 0.25 mcg PO QAM Qty: 30 5RF metoprolol tartrate 25 mg Tablet 75 mg PO BID 30 Days Qty: 180 5RF simvastatin 20 mg tablet 20 mg PO DAILY Qty: 30 5RF bumetanide 1 mg tablet 1 mg PO DAILY PRN (Reason: weigh gain or shortness of breath) Qty: 30 5RF Discharge Orders: Discharge Order (Routine); Ordered 08/09/22 Ordered By: Ashok Barrios Admission Data Admit Date/Time: 08/04/22 17:53 Attending Provider: Ashok Barrios Admit Provider: Neri Metz Primary Care Provider: PCP,NO Other Providers: Neri Metz ; Sunita Foster ; Landry Rico ; Hal Rich Other Interventions: Discharge Summary Assessment (RN) Last Done: 08/09/22 16:25 Coding Level of Care Code D/C DAY MANAGEMENT >30 MINS Diagnoses ARF (acute renal failure) N17.9 Bigeminy I49.8 Anemia D64.9 HTN (hypertension) I10 Cardiomyopathy I42.9 Enlarged prostate N40.0 HFrEF (heart failure with reduced ejection fraction) I50.20 Hypervolemia E87.70 Metabolic acidosis E87.2 TIA (transient ischemic attack) G45.9
--- NOTE | 2022-08-09 16:13 | Pharmacy Report ---
Pharmacist Stroke Counseling - Date of Service August 09, 2022 - Scope: Pharmacy has been consulted to provide medication discharge counseling for this patient admitted with transient ischemic attack as per the Pharmacist Discharge Counseling for Stroke Patients Protocol. - Medications on Discharge: New Rx's Medication Instructions Recorded aspirin 81 mg tablet,delayed 81 mg PO QAM #90 tabs 08/09/22 release bumetanide 1 mg tablet 1 mg PO DAILY PRN weigh gain or 08/09/22 shortness of breath #30 tabs calcitriol 0.25 mcg capsule 0.25 mcg PO QAM #30 caps 08/09/22 clopidogrel 75 mg tablet 75 mg PO QAM 21 days #21 tabs 08/09/22 metoprolol tartrate 25 mg tablet 75 mg PO BID 30 days #180 tabs 08/09/22 simvastatin 20 mg tablet 20 mg PO DAILY #30 tabs 08/09/22 sodium bicarbonate 650 mg tablet 650 mg PO BID #60 tabs 08/09/22 tamsulosin 0.4 mg capsule 0.4 mg PO QAM #30 caps 08/09/22 - Action: The above medications, specifically ones for stroke treatment/prophylaxis, have been reviewed in detail with the patient and patient representatives prior to discharge. This includes indication, common adverse reactions, drug interactions, and medication administration. Medication counseling has been employed using the teach-back method to ensure understanding. - Outcome: The patient and patient representatives have demonstrated understanding of the medications. Additional comments: - Counseling completed in person with daughters present at bedside - Given an opportunity to have all questions answered - Simvastatin chosen over Rosuvastatin due to insurance issues - Instructed patient that pharmacy closes at 5 pm and meds will need picked tomorrow morning Thank you for allowing pharmacy to be involved in the care of this patient. Please call [phone] with any additional questions
[2022-08-10 14:19] LABS: Alpha 1 Globulin 0.3 g/dL (0.2-0.3); Alpha 2 Globulin 0.6 g/dL (0.5-0.9); Beta-1-Globulin 0.3 g/dL (0.4-0.6); Beta-2-Globulin 0.4 g/dL (0.2-0.5); Gamma Globulin 0.9 g/dL (0.8-1.7); Monoclonal Protein Band 1 DNR g/dL (NONE DETECTED); Monoclonal Protein Band 2 DNR g/dL (NONE DETECTED); Monoclonal Protein Band 3 DNR g/dL (NONE DETECTED); Total Protein 5.6 g/dL (6.1-8.1)
[2022-08-12 18:12] LABS: ANCA Screen P-ANCA POS (Negative); Anti Nuclear Antibody Screen NEGATIVE (NEGATIVE); Anti-Glom Basement Antibody <1.0 AI (<1.0); Complement C3 109 mg/dL (82-185); Free Kappa 126.6 mg/L (3.3-19.4); Free Kappa/Lambda Ratio 1.81 (0.26-1.65); Free Lambda 70.1 mg/L (5.7-26.3); Myeloperoxidase Ab 24.6 AI (<1.0); Proteinase-3 AB <1.0 AI (<1.0)
== END 2022-08-09 18:13 | disposition home or self-care (01) | DRG 683 ==
LOC: ED 12:21 → SUATTDRO 17:53 → 2E 17:53
DX: N40.1 Benign prostatic hyperplasia with lower urinary tract symptoms; E86.1 Hypovolemia; I13.2 Hypertensive heart and chronic kidney disease with heart failure and with stage 5 chronic kidney disease, or end stage renal disease; N18.5 Chronic kidney disease, stage 5; I49.3 Ventricular premature depolarization; R29.706 NIHSS score 6; E87.2 Acidosis; M19.90 Unspecified osteoarthritis, unspecified site; I50.22 Chronic systolic (congestive) heart failure; G45.9 Transient cerebral ischemic attack, unspecified; I34.0 Nonrheumatic mitral (valve) insufficiency; J90 Pleural effusion, not elsewhere classified; R00.8 Other abnormalities of heart beat; D50.9 Iron deficiency anemia, unspecified; N25.81 Secondary hyperparathyroidism of renal origin; N32.0 Bladder-neck obstruction; R29.810 Facial weakness; N17.9 Acute kidney failure, unspecified; G81.94 Hemiplegia, unspecified affecting left nondominant side; D63.1 Anemia in chronic kidney disease; I42.9 Cardiomyopathy, unspecified

== ENCOUNTER 2022-11-23 11:51 | Inpatient (IN) ==
--- NOTE | 2022-11-23 13:09 | ED Triage Note ---
Date of Service November 23, 2022 History of Present Illness This patient was briefly evaluated while in triage. An abbreviated physical exam was performed. This patient is a 72-year-old Male with past medical history of kidney failure and anemia who presents to the ED for evaluation of low hemoglobin. Son reports that he has a history of kidney failure and has decided not to get dialysis. He had labs done yesterday in [place] that showed a low hemoglobin. Physical Exam VITALS: Vitals are noted on the nurse's note and reviewed by myself. GENERAL: This is a 72-year-old male, very pale appearing. SKIN: Pallor noted. EYES: Conjunctiva pale. MOUTH: Mucous membranes moist. NECK: Supple without nuchal rigidity. HEART: Regular rate and rhythm without murmurs gallops or rubs. LUNGS: Clear to auscultation bilaterally without wheezes, rales or rhonchi. NEURO: Patient was alert and oriented to person place and time. Initial orders for labs and / or imaging were placed and patient was placed in the waiting area until a bed is available. Please see further documentation for the full ED course.
[2022-11-23 13:36] LABS: INR 1.1 (0.9-1.1); Partial Thromboplastin Ratio 0.9; Partial Thromboplastin Time 23.6 Seconds (21.0-31.0); Prothrombin Time 12.1 Seconds (9.0-12.0)
[2022-11-23 13:47] LABS: Hematocrit (blood only) 10.2 % (40.1-51.0); Hemoglobin 3.2 g/dl (14.0-18.0); Mean Corpuscular Hemoglobin 31.7 pg (25.0-34.0); Mean Corpuscular Hgb Conc 31.4 g/dL (32.0-36.0); Mean Platelet Volume 12.9 fL (9.4-12.4); Nucleated RBC # (auto) 0.03 K/uL (0-0); Nucleated RBC % (auto) 0.3 %; Platelet Count 181 K/uL (130-400); RDW Coefficient of Variation 16.7 % (11.5-14.5); RDW Standard Deviation 58.4 fL (36.4-46.3); Red Blood Count 1.01 M/uL (4.63-6.08); White Blood Count 8.64 K/ul (4.8-10.8)
[2022-11-23] MEDS ORDERED: SODIUM CHLORIDE 0.9% 250 ML IV PRN ×3 (14:05→19:16)
[2022-11-23] MEDS ORDERED: PANTOPRAZOLE BOLUS/DRIP 1 EACH IV STA (14:05)
[2022-11-23] MEDS ORDERED: PANTOprazole 80 MG in DEXTROSE 5% 100 ML IV ONE (14:05)
--- NOTE | 2022-11-23 14:16 | Emergency Department Note ---
Impression & Plan Acute GI bleeding, Symptomatic anemia, Electrolyte abnormality, CKD (chronic kidney disease) stage 5, GFR less than 15 ml/min ED Provider Note NAME: GENARO MENA Sr AGE: 72 SEX: M : 1950 ARRIVES VIA: Walk-In INFORMANT: Patient, ED PROVIDER(S): Todd Wells MD Chief Complaint: Weakness, fatigue, outpatient referral, abnormal blood work HPI: Patient presents due to concern for weakness and fatigue which is been ongoing for several months. The patient was referred as an outpatient after having outpatient blood work which showed that his hemoglobin was 3. Patient denies any chest pains but does have some occasional shortness of breath. The patient does have some leg swelling which has worsened. The patient does have a known history of CKD but does not want any dialysis. The patient is DNR/DNI. Patient is amenable to receiving blood products if needed. The patient does take a baby aspirin daily but denies taking blood thinners or additional antiplatelets or additional NSAIDs. Patient Nuys any falls or trauma. The patient does not noticed any bright red blood per rectum or dark tarry stools no vomiting blood. Patient does have occasional nausea and gagging but no actual vomiting. MDM: Patient was seen due to concern for low hemoglobin. Patient's confirmatory blood work did show a hemoglobin of 3. Patient is pale in appearance. He was consented for 1 unit of PRBCs. The patient does not want dialysis. Patient was noted to have melenic stool that is heme positive. Protonix bolus and drip ordered. I did speak with the on-call hospitalist Kelton Abrams PA-C and Dr. Nettles. I did also speak with on-call waste and batting waste chopper Dr. Busby who did talk with the hospitalist team. Patient has normal white count. The patient's kidney function is more or less at baseline. Patient's creat today 6.4 back in July was 6.47. Patient does have hypocalcemia and hyperphosphatemia hypermagnesemia. Patient's troponin is elevated at 427. Patient does not have any active chest pain. Believe this is secondary to the patient's significant anemia. Critical Care: I have personally spent 42 minutes of critical care time in direct management of this patient. This includes bedside care, interpretation of diagnostic studies, and testing, discussion with consultants, patient, and family members, and other require inpatient management activities. This 42 minutes is in excess of all separately billable procedures. ROS: See HPI for pertinent positives and negatives. A total of 10 systems were reviewed and otherwise negative. Past medical history: See below Surgical history: See below Social history: See below Physical Exam: GENERAL: NAD, wearing a mask, non-toxic. Pale in appearance, wearing glasses EYE EXAM: Normal conjunctiva. PERRL, no anisocoria and EOM's grossly intact w/o pain. NECK: Supple, no nuchal rigidity, no adenopathy, non-tender. No signs of menin gismus. FROM of the neck with good chin to chest and neck extension. No stridor. LUNGS: Clear to auscultation. Normal chest wall mechanics. HEART: NSR, no MRG. ABDOMEN: Abdomen soft, non-tender, normo-active bowel sounds, no masses, no rebound or guarding. BACK: No CVA TTP. SKIN: No rashes and no bruising. UPPER EXTREMITIES: Upper extremities are grossly normal. LOWER EXTREMITIES: Grossly normal, symmetric lower extremity edema noted. NEURO EXAM: A&O x3, cranial nerves II-XII grossly intact, normal speech, moves all 4 extremities. Differential diagnoses: Infection, dehydration, metabolic abnormality, hypo/hyperglycemia, electrolyte disturbance, anemia, hypoxia, cardiac sources, intracerebral event, toxicologic, neurologic, as well as other pathologies. Course: Patient was seen and evaluated the bedside. Full history physical exam was performed. EKG interpreted by me Normal sinus rhythm, rate of 77 normal intervals normal axis T wave inversions in the lateral high lateral leads as well as inferiorly. Patient's T wave inversions are more pronounced in the lateral leads from comparison EKG August 07, 2022. No PVCs noted on the EKG from today. Imaging Studies: See Below Cardiac monitoring: An order was placed for continuous cardiac monitoring. The monitor shows a rate of 82 with sinus rhythm. Past Med/Surg History Medical History ANCA-positive vasculitis Anemia ARF (acute renal failure) Bigeminy BPH (benign prostatic hyperplasia) Cardiomyopathy Enlarged prostate Frequent PVCs HFrEF (heart failure with reduced ejection fraction) HTN (hypertension) Hyperparathyroidism Hyperphosphatemia Metabolic acidosis Mitral regurgitation Osteoarthritis Osteoarthritis Pulmonary hypertension TIA (transient ischemic attack) Surgical History History of herniorrhaphy Inguinal hernia (done under local) History of hip replacement History of tooth extraction Family History Other Anemia No family history of adverse response to anesthesia Denies family history of Heart disease Cancer Social History Smoking Status: Never smoker Second Hand Exposure: No; Hx Alcohol Use: No Hx Substance Use: No Preferred Language: Spanish Communication Ability: Effective Cementer Hand Required: No Beliefs That Will Affect Care: Cultural Cultural Beliefs: [facility] marital status: Current Living Situation: Family Current Living Situation Comment: AND 2 DAUGHTERS Other Information That Helps Us Care for You: No Feels Safe at Home: Yes Safety Concerns: Feels Safe At This Time Assistive Devices: Cane, Denture - Upper, Denture - Lower and Glasses Allergies Allergies Allergy/AdvReac Type Severity Reaction Status Date / Time No Known Allergies Allergy Verified 11/23/22 15:29 Home Meds Home Medications Medication Instructions Recorded Confirmed tamsulosin 0.4 mg capsule 0.4 mg PO QPM 11/23/22 11/23/22 Previous Rx's Medication Instructions Recorded aspirin 81 mg tablet,delayed 81 mg PO QAM #90 tabs 08/09/22 release calcitriol 0.25 mcg capsule 0.25 mcg PO QAM #30 caps 08/09/22 simvastatin 20 mg tablet 20 mg PO DAILY #30 tabs 08/09/22 sodium bicarbonate 650 mg tablet 650 mg PO BID #60 tabs 08/09/22 amlodipine 2.5 mg tablet 2.5 mg PO DAILY #30 tabs 09/28/22 bumetanide 1 mg tablet 1 mg PO DAILY weigh gain or 09/28/22 shortness of breath #30 tabs calcium acetate(phosphat bind) 667 667 mg PO QID #120 tabs 09/28/22 mg tablet metoprolol tartrate 25 mg tablet 25 mg PO BID 30 days #60 tabs 09/28/22 gabapentin 100 mg capsule 200 mg PO HS #60 caps 10/25/22 oxycodone 5 mg tablet 5 - 10 mg PO Q8H PRN pain #20 tabs 11/23/22 Results & Data (ED) Vital Signs Vital Signs - 24 hr 11/23/22 11:54 11/23/22 14:05 11/23/22 14:09 Temperature 36.5 C Temperature Source Temporal Artery Scan Pulse Rate 94 H Pulse Rate [Right Finger] 79 Pulse Rhythm Regular Pulse Strength Normal Respiratory Rate 20 Respiratory Effort / Characteristics Non-Labored Spontaneous Respiratory Depth Normal Respiratory Pattern Regular Blood Pressure 128/66 Blood Pressure [Right Arm] 126/65 Blood Pressure Mean 86 Blood Pressure Mean [Right Arm] 85 Blood Pressure Position Sitting Pulse Oximetry 93 100 100 Oxygen Delivery Method Room Air Room Air Room Air Sepsis Recent Fever Within 48 Hours No Sepsis New/Unexplained Change in Mental Status N/A Sepsis Action Taken by Nursing No Action Required 11/23/22 14:28 11/23/22 14:45 11/23/22 14:47 Temperature 36.5 C 36.5 C Temperature Source Oral Oral Pulse Rate 80 79 82 Pulse Rate [Right Finger] Pulse Rhythm Pulse Strength Respiratory Rate 16 10 L 16 Respiratory Effort / Characteristics Respiratory Depth Respiratory Pattern Blood Pressure 120/62 121/69 138/66 Blood Pressure [Right Arm] Blood Pressure Mean 81 86 90 Blood Pressure Mean [Right Arm] Blood Pressure Position Pulse Oximetry 100 100 97 Oxygen Delivery Method Sepsis Recent Fever Within 48 Hours Sepsis New/Unexplained Change in Mental Status Sepsis Action Taken by Nursing 11/23/22 15:02 Temperature Temperature Source Pulse Rate 80 Pulse Rate [Right Finger] Pulse Rhythm Pulse Strength Respiratory Rate 16 Respiratory Effort / Characteristics Respiratory Depth Respiratory Pattern Blood Pressure 136/80 Blood Pressure [Right Arm] Blood Pressure Mean 98 Blood Pressure Mean [Right Arm] Blood Pressure Position Pulse Oximetry 97 Oxygen Delivery Method Sepsis Recent Fever Within 48 Hours Sepsis New/Unexplained Change in Mental Status Sepsis Action Taken by [facility] Medications Current Medication List: was personally reviewed by la Laboratory Data Attestation: I reviewed the patient's lab results. Result diagrams: 11/23/22 13:12 11/23/22 13:12 Lab Results 11/23/22 11/23/22 11/23/22 Range/Units 13:12 13:12 13:12 WBC 8.64 (4.8-10.8) K/ul RBC 1.01 L (4.63-6.08) M/uL Hgb 3.2 L* (14.0-18.0) g/dl Hct 10.2 L* (40.1-51.0) % MCV 101.0 H (80.0-100.0) fL MCH 31.7 (25.0-34.0) pg MCHC 31.4 L (32.0-36.0) g/dL RDW Std Deviation 58.4 H (36.4-46.3) fL RDW Coeff of Tobin 16.7 H (11.5-14.5) % Plt Count 181 (130-400) K/uL MPV 12.9 H (9.4-12.4) fL Absolute Nucleated RBC 0.03 H (0-0) K/uL Nucleated RBC % (auto) 0.3 % PT 12.1 H (9.0-12.0) Seconds INR 1.1 (0.9-1.1) APTT 23.6 (21.0-31.0) Seconds PTT Ratio 0.9 Sodium Potassium Chloride Carbon Dioxide Anion Gap BUN Creatinine Est Cr Clr Drug Dosing Est GFR ( Amer) Est GFR (Non-Af Amer) BUN/Creatinine Ratio Glucose Calcium Total Bilirubin AST ALT Alkaline Phosphatase Troponin I High Sens (0-20) pg/ml Total Protein Albumin Globulin Albumin/Globulin Ratio POC Stool Occult Blood (Negative) SARS-CoV-2, RNA, NAAT (NEGATIVE) Blood Type O Positive Antibody Screen NEGATIVE Crossmatch See Detail 11/23/22 11/23/22 11/23/22 Range/Units 13:12 13:12 14:05 WBC (4.8-10.8) K/ul RBC (4.63-6.08) M/uL Hgb (14.0-18.0) g/dl Hct (40.1-51.0) % MCV (80.0-100.0) fL MCH (25.0-34.0) pg MCHC (32.0-36.0) g/dL RDW Std Deviation (36.4-46.3) fL RDW Coeff of Tobin (11.5-14.5) % Plt Count (130-400) K/uL MPV (9.4-12.4) fL Absolute Nucleated RBC (0-0) K/uL Nucleated RBC % (auto) % PT (9.0-12.0) Seconds INR (0.9-1.1) APTT (21.0-31.0) Seconds PTT Ratio Sodium Cancelled 140 Potassium Cancelled 5.0 Chloride Cancelled 110 H Carbon Dioxide Cancelled 15 L Anion Gap Cancelled 15 H BUN Cancelled 122 H Creatinine Cancelled 6.43 H* Est Cr Clr Drug Dosing Cancelled 9.8 Est GFR ( Amer) Cancelled 9.0 Est GFR (Non-Af Amer) Cancelled 7.8 BUN/Creatinine Ratio Cancelled 19.0 Glucose Cancelled 138 H Calcium Cancelled 8.4 L Total Bilirubin Cancelled 0.3 AST Cancelled 127 H ALT Cancelled 272 H Alkaline Phosphatase Cancelled 60 Troponin I High Sens 427.6 H* (0-20) pg/ml Total Protein Cancelled 5.5 L Albumin Cancelled 2.9 L Globulin Cancelled 2.6 Albumin/Globulin Ratio Cancelled 1.1 POC Stool Occult Blood Positive A (Negative) SARS-CoV-2, RNA, NAAT (NEGATIVE) Blood Type Antibody Screen Crossmatch 11/23/22 Range/Units 14:08 WBC (4.8-10.8) K/ul RBC (4.63-6.08) M/uL Hgb (14.0-18.0) g/dl Hct (40.1-51.0) % MCV (80.0-100.0) fL MCH (25.0-34.0) pg MCHC (32.0-36.0) g/dL RDW Std Deviation (36.4-46.3) fL RDW Coeff of Tobin (11.5-14.5) % Plt Count (130-400) K/uL MPV (9.4-12.4) fL Absolute Nucleated RBC (0-0) K/uL Nucleated RBC % (auto) % PT (9.0-12.0) Seconds INR (0.9-1.1) APTT (21.0-31.0) Seconds PTT Ratio Sodium Potassium Chloride Carbon Dioxide Anion Gap BUN Creatinine Est Cr Clr Drug Dosing Est GFR ( Amer) Est GFR (Non-Af Amer) BUN/Creatinine Ratio Glucose Calcium Total Bilirubin AST ALT Alkaline Phosphatase Troponin I High Sens (0-20) pg/ml Total Protein Albumin Globulin Albumin/Globulin Ratio POC Stool Occult Blood (Negative) SARS-CoV-2, RNA, NAAT NEGATIVE (NEGATIVE) Blood Type Antibody Screen Crossmatch Administered Medications Discontinued Medications Pantoprazole Sodium (Protonix Bolus/Drip) 0 mls @ 1 mls/hr IV ONE STA Stop: 11/23/22 14:06 Last Admin: 11/23/22 14:33 Dose: Not Given Documented By: MES Pantoprazole Sodium 40 mg/ (Dextrose) 100 mls @ 20 mls/hr IV Q5H JACOBY Stop: 12/23/22 14:29 Last Infusion: 11/23/22 18:08 Dose: 0 mg/hr, 0 mls/hr Documented By: Admin: 11/23/22 15:24 Dose: 8 mg/hr, 20 mls/hr Documented By: TNB Pantoprazole Sodium 80 mg/ (Dextrose) 120 mls @ 400 mls/hr IV NOW ONE Stop: 11/23/22 14:22 Last Infusion: 11/23/22 14:51 Dose: 0 mls/hr Documented By: Admin: 11/23/22 14:33 Dose: 400 mls/hr Documented By: MES Bumetanide 1 mg/ Syringe 4 mls @ 4 mls/min IV ONE ONE Stop: 11/23/22 15:59 Last Admin: 11/23/22 18:08 Dose: 4 mls/min Documented By: AM Discharge Plan Visit Data Chief Complaint: Abnormal Labs/Diagnostic Testing Stated Complaint: ABNORMAL LABS ED Provider: Todd Wells Discharge Problem: Acute GI bleeding, Symptomatic anemia, Electrolyte abnormality, CKD (chronic kidney disease) stage 5, GFR less than 15 ml/min Patient Disposition: Admitted As Inpatient Discharge Instructions Interventions: ED Discharge Assessment Last Done: 11/23/22 15:59
[2022-11-23 14:24] LABS: Albumin Globulin Ratio 1.1 (0.9-2); Albumin Level 2.9 gm/dl (3.4-5.0); Bilirubin,Total 0.3 mg/dl (0.2-1.0); Calcium 8.4 mg/dl (8.5-10.1); Creatinine Clr Calc Pharmacy 9.8 ml/min; Est GFR (Non-African American) 7.8 ml/min; Globulin 2.6 gm/dl (2.5-4.0); Total Protein 5.5 gm/dl (6.0-8.3); Troponin I High Sensitivity 427.6 pg/ml (0-20)
[2022-11-23] MEDS ORDERED: PANTOprazole 40 MG in DEXTROSE 5% 100 ML IV SCH (14:30)
--- NOTE | 2022-11-23 14:57 | History & Physical Report ---
Date of Service November 23, 2022 Assessment & Plan (1) Anemia: Plan: -Admit to the PCU -Patient is currently afebrile, hemodynamically stable, and stable on RA -Patient had routine labs drawn outpatient by his PCP today and was found to have a Hgb of 3.0, was recommended to come to the ED -Repeat lab work in the ED confirmed his hgb of 3.2, patient was also heme positive on ED testing -Likely a combination of his CKD and possible GI bleed -Was started on a protonix drip in the ED due to anemia and positive occult blood screen. Will switch patient to 40 mg IV BID dosing to avoid volume overload. -For now will wait on GI consult as he would not be stable enough for a colonoscopy and the patient may not want to proceed with a workup -ED staff obtained blood consent and he is currently receiving his first unit of PRBC's now. -If patient were to acutely decline his family would like to be updated, the plan would be to transition him to comfort measures if this occurs -Continue to monitor volume status closely, monitor on tele and pulse oximetry -Nephrology consulted for assistance with his metabolic acidosis and diuretic regimen while admitted, will touch base with them after they seem him, appreciate their help -AM CMP, Mag, Phos -Will repeat his CBC (2) Congestive heart failure due to hypertension: Plan: -Patient current examines volume up with extensive BL LE swelling, will obtain chest xray for further evaluation -Noramlly take 1mg PO Bumex daily, will hold for now -Will await Nephrology's recommendations -Monitor on tele and pulse oximetry (3) Metabolic acidosis: Plan: -AG is currently at 15 with Bicarb of 15 -Normally on BID sodium bicarb tabs -Nephrology consult placed, they will see him shortly, will touch base with them fro recommendations (4) Elevated troponin: Plan: -Initial trop elevated at 427, patient is asymptomatic -No signiciant ECG changes when compared to his previous ECGs -Likely due to demand from his severe anemia -Will continue to trend until it begins to fall -Monitor on tele (5) Hyperphosphatemia: Plan: -Continue Phospahte binder -Phosphate level ordered on admission is pending (6) Chronic kidney disease, stage V: Plan: -Currently at baseline cr but noted to have an AG of 15 with Bicarb of 15 -Normally on BID sodium bicarb tabs by Nephrology, will likely be transitioning him to an IV sodium bicarb drip, will touch base with Nephrology -Monitor am renlal function and electrolytes (7) HTN (hypertension): Plan: -Continue metoprolol but hold amlodipine (8) BPH (benign prostatic hyperplasia): Plan: -Continue flomx Plan The patient was disucssed with Dr. Nettles at the time of the admission History of Present Illness Chief Complaint: Abnormal outpatient labs Primary Care Provider: Jose Grey MD Nicolas is a 72 year old male with a PMH significant for stage 5 CKD, previous right hip replacement, HFrEF (LVEF of 40-45% as of 08/05/22), HTN, CAD, ANCA- Positive Vasculitis, and hyperphosphatemia who presented to the [facility] ED on 11/23/22 at the recommendation from his PCP for an outpatient Hgb of 3.0. In the ED the patient was found to be afebrile, hemodynamically stable, and stable on RA. Repeat labs in the ED were significant for a WBC of 8.4, Hgb of 3.2 (down from 9.3 on 08/16/22), Hct of 10.2 (down from 29 as of 08/16/22), stable platelets at 181, PT of 12.1 otherwise stable coagulation workup, cr of 6.43 (down from 6.47 as of 08/16/22), sodium of 140, potassium of 5.0, chloride of 110, AG of 15 with bicarb of 15, corrected calcium of 9.3, total bili of 0.3, AST of 127, ALT of 272, alk phos of 60, initial high sensitivity trop of 427, POC stool occult blood positive, and covid negative. The ED staff spoke with the patient who clearly expressed that he would not want dialysis under any circumstances, even if it were life saving. Prior to admission the patient was start on a Protonix drip, consented for blood, and was ordered 1 unit PRBC's. At the time of the exam the was resting comfortably in bed in no acute distress with his family sitting bedside, history was obtained from them all. They confirmed that the patient had outpatient labs drawn by his PCP and they were recommended to come to the ED due to his low hemoglobin. Recently the patient has had worsening weakness, restless legs, and severe dyspnea with exertion. He denies recent fevers, chills, chest pain, nausea, vomiting, abdominal pain, dysuria, hematuria, diarrhea, and recent falls. He has noted significant BL lower extremity edema over the past few weeks. He and his family state that he has been taking his Bumex as prescribed. He was prescribed 2.5 mg PO amlodipine by his PCP on 09/28/22 for hypertension. They explained that after he starting taking the amlodipine he experienced orthostatic hypotension and syncope, so he stopped taking it. He also stopped taking his atorvastatin due to it possibly causing his restless legs. We had a long discussion regarding his tentative prognosis and high risk for decompensation. The patient clearly stated that he is a DNR/DNI and does not want dialysis. I explained that we can start with giving him one unit of PRBC's at a time with diuretics to prevent volume overload and see how he responds. If he were to acutely decline he and his family would want him transitioned to comfort measures. They asked if home hospice would be an option if it did not look as though the current treatment plan is working or causing him too much discomfort. I explained that this could be arranged if he is not doing well during his admission and wishes to go home on hospice. Please refer to Dr. Nettles's attestation for any changes to the treatment plan Allergies Allergy/AdvReac Type Severity Reaction Status Date / Time No Known Allergies Allergy Verified 11/23/22 15:29 Home Medications Medication Instructions Recorded Confirmed Type aspirin 81 mg tablet,delayed 81 mg PO QAM #90 tabs 08/09/22 11/23/22 Rx release calcitriol 0.25 mcg capsule 0.25 mcg PO QAM #30 caps 08/09/22 11/23/22 Rx simvastatin 20 mg tablet 20 mg PO DAILY #30 tabs 08/09/22 11/23/22 Rx sodium bicarbonate 650 mg tablet 650 mg PO BID #60 tabs 08/09/22 11/23/22 Rx amlodipine 2.5 mg tablet 2.5 mg PO DAILY #30 tabs 09/28/22 11/23/22 Rx bumetanide 1 mg tablet 1 mg PO DAILY weigh gain or 09/28/22 11/23/22 Rx shortness of breath #30 tabs calcium acetate(phosphat bind) 667 667 mg PO QID #120 tabs 09/28/22 11/23/22 Rx mg tablet metoprolol tartrate 25 mg tablet 25 mg PO BID 30 days #60 tabs 09/28/22 11/23/22 Rx gabapentin 100 mg capsule 200 mg PO HS #60 caps 10/25/22 11/23/22 Rx oxycodone 5 mg tablet 5 - 10 mg PO Q8H PRN pain #20 tabs 11/23/22 Rx tamsulosin 0.4 mg capsule 0.4 mg PO QPM 11/23/22 11/23/22 History Past Med/Surg History Medical History (Updated 11/23/22 @ 14:53 by Kelton Abrams PA-C) ANCA-positive vasculitis Anemia ARF (acute renal failure) Bigeminy BPH (benign prostatic hyperplasia) Cardiomyopathy Enlarged prostate Frequent PVCs HFrEF (heart failure with reduced ejection fraction) HTN (hypertension) Hyperparathyroidism Hyperphosphatemia Metabolic acidosis Mitral regurgitation Osteoarthritis Osteoarthritis Pulmonary hypertension TIA (transient ischemic attack) Surgical History History of herniorrhaphy Inguinal hernia (done under local) History of hip replacement History of tooth extraction Family History Other Anemia No family history of adverse response to anesthesia Denies family history of Heart disease Cancer Social History Smoking Status: Never smoker Second Hand Exposure: No; Hx Alcohol Use: No Hx Substance Use: No Preferred Language: Tamazight Communication Ability: Effective 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: No Beliefs That Will Affect Care: Cultural Cultural Beliefs: [facility] marital status: Current Living Situation: Family Current Living Situation Comment: AND 2 DAUGHTERS Other Information That Helps Us Care for You: No Feels Safe at Home: Yes Safety Concerns: Feels Safe At This Time Assistive Devices: Cane, Denture - Upper, Denture - Lower and Glasses Review of Systems Review of Systems: Denies current fever, chills, headache, changes in vision, hearing, taste, and smell, chest pain, cough, abdominal pain, nausea, vomiting, diarrhea, hematemesis, melena, dysuria, hematuria, and recent falls. All systems have been reviewed and are otherwise negative. Physical Exam Physical Exam: Physical Exam: General: In no acute distress, stated age, chronically ill-appearing, extremely pale HEENT: Normocephalic, atraumatic, no scleral icterus, pupils around round, symmetrical, and reactive to light, dry mucus membranes, trachea midline, no thyromegaly Chest/Pulm: No respiratory distress, symmetrical chest expansion, clear breath sounds throughout Cardiac: RRR, no murmurs noted Abdomen: Negative for ascites and bruising, normoactive bowel sounds, soft, non-tender to palpation throughout Musculoskeletal: Symmetrical and without signs of acute trauma, upper and lower extremities with full ROM, no atrophy, spasticity, or flaccidity Extremities: Radial, dorsalis pedis, and posterior tibial pulses are intact and symmetrical, 3+ pitting edema noted in the BL LE's Skin: Warm, dry, no rashes , lesions, or scars noted Neuro: Alert and oriented to person, place, month, year, and president, no fo toya defects, CN II-XII tested and intact, finger to nose test negative, no tremors noted Psych: No acute distress, calm and cooperative during the exam Results & Data Results & Data ([facility]) Vital Signs (Past 12 Hours) Vital Signs Temp Pulse Pulse Resp BP BP Pulse Ox 11/23/22 14:28 36.5 C 80 16 120/62 100 11/23/22 14:09 100 11/23/22 14:05 79 126/65 100 11/23/22 11:54 36.5 C 94 H 20 128/66 93 O2 Del Method 11/23/22 14:28 11/23/22 14:09 Room Air 11/23/22 14:05 Room Air 11/23/22 11:54 Room Air Laboratory Results Abnormal lab results 11/23/22 11/23/22 11/23/22 Range/Units 13:12 13:12 13:12 RBC 1.01 L (4.63-6.08) M/uL Hgb 3.2 L* (14.0-18.0) g/dl Hct 10.2 L* (40.1-51.0) % MCV 101.0 H (80.0-100.0) fL MCHC 31.4 L (32.0-36.0) g/dL RDW Std Deviation 58.4 H (36.4-46.3) fL RDW Coeff of Tobin 16.7 H (11.5-14.5) % MPV 12.9 H (9.4-12.4) fL Absolute Nucleated RBC 0.03 H (0-0) K/uL PT 12.1 H (9.0-12.0) Seconds Chloride (98-107) mmol/L Carbon Dioxide (21-32) mmol/L Anion Gap (3-11) Creatinine (0.6-1.4) mg/dl Glucose (70-99(Fasting)) mg/dl Calcium (8.5-10.1) mg/dl AST (13-39) U/L ALT (7-52) U/L Troponin I High Sens (0-20) pg/ml Total Protein (6.0-8.3) gm/dl Albumin (3.4-5.0) gm/dl POC Stool Occult Blood (Negative) Crossmatch See Detail 11/23/22 11/23/22 Range/Units 13:12 14:05 RBC (4.63-6.08) M/uL Hgb (14.0-18.0) g/dl Hct (40.1-51.0) % MCV (80.0-100.0) fL MCHC (32.0-36.0) g/dL RDW Std Deviation (36.4-46.3) fL RDW Coeff of Tobin (11.5-14.5) % MPV (9.4-12.4) fL Absolute Nucleated RBC (0-0) K/uL PT (9.0-12.0) Seconds Chloride 110 H (98-107) mmol/L Carbon Dioxide 15 L (21-32) mmol/L Anion Gap 15 H (3-11) Creatinine 6.43 H* (0.6-1.4) mg/dl Glucose 138 H (70-99(Fasting)) mg/dl Calcium 8.4 L (8.5-10.1) mg/dl AST 127 H (13-39) U/L ALT 272 H (7-52) U/L Troponin I High Sens 427.6 H* (0-20) pg/ml Total Protein 5.5 L (6.0-8.3) gm/dl Albumin 2.9 L (3.4-5.0) gm/dl POC Stool Occult Blood Positive A (Negative) Crossmatch ECG Additional Comments: Normal sinus rhythm ST & T wave abnormality, consider inferolateral ischemia Abnormal ECG When compared with ECG of 07-AUG-2022 13:22, Premature ventricular complexes are no longer Present T wave inversion now evident in Inferior leads Code Status & VTE Plan Code Status DNR/DNI VTE Prophylaxis Plan VTE Prophylaxis will be ordered: Yes Supervising Physician Co-Signing Physician Notes Patient was seen and examined independently I discussed the case with Kelton FRASER I reviewed pertinent past medical social family history and also the plan of care and agree with the plan of care. Patient presents with profound anemia. Patient has a history of chronic kidney disease in the past refusing dialysis. Certainly there is a bit of chronicity to his anemia but likely an acute phase as he was having some dark bowel movements at times. Patient also has a history of systolic heart failure subsequently volume will be a challenge given his cardiac and renal disease. Elevation of his troponin and lateral T wave inversions likely from his profound anemia making him have an NSTEMI at this point time His examination finds himself to be very pale he is without focus complaints other than weakness his lungs are clear his abdomen is without significant discomfort Patient is here with profound anemia with endorgan damage evidenced by elevation of troponin and EKG changes Transfusion cautiously with diuretic posttransfusion (patient typically takes Bumex) we will slowly try to work his hemoglobin up into the 7 g range trending troponin nephrology consultation which I personally called maintaining his chronic kidney disease medication Patient is realistic and refuses possibility dialysis understanding that his disease process could progress and he would want no heroic measures at that time Any exceptions will be noted below PG Care Time/CCT Total # of Minutes Spent Total Time Spent with Patient: Total time spent is greater than 50% in coordination of care (as documented) at patient's floor/unit and/or counseling patient: [place] [address] Initial Inpt Care Lvl 3 Patient Type Established Medical Decision Making High Complexity Diagnoses Anemia D64.9 Congestive heart failure due to hypertension I11.0 Metabolic acidosis E87.2 Elevated troponin R77.8 Hyperphosphatemia E83.39 Chronic kidney disease, stage V N18.5 HTN (hypertension) I10 BPH (benign prostatic hyperplasia) N40.0
[2022-11-23] MEDS ORDERED: BUMETANIDE 1 MG in SYRINGE 0 ML IV ONE ×2 (15:58→19:30)
--- NOTE | 2022-11-23 16:25 | XRay Report ---
XR chest 1V portable CLINICAL HISTORY: volume overload TECHNIQUE: Single frontal radiograph of the chest was obtained. Comparison: Comparison is made to chest radiograph 08/04/2022 FINDINGS: No lines and tubes are seen. Cardiomegaly is noted. Prominence and cephalization of the vasculature i s seen. No evidence of pleural effusion or pneumothorax. IMPRESSION: Cardiomegaly and mild pulmonary edema. ACT 112: Negative or not required by law. Electronically signed by: Franki Bang M.D. 11/23/2022 4:24 PM
[2022-11-23 17:42] LABS: HCO3 ABG 13 mmol/L (19-24); PCO2 ABG 23 mmHg (35-46); PO2 ABG 99 mmHg (80-95); pH ABG 7.37 (7.35-7.45)
[2022-11-23 17:43] LABS: Allen Test Pos (Pos)
--- NOTE | 2022-11-23 17:43 | Nephrology Consultation ---
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 Mackenzie and his and son this evening. They are open to hospice care and would like to meet w/ Palliative Care tomorrow. Request for consultation has been placed in EMR (2) Anemia: * Agree w/ blood transfusion * Recommend transfusing 1 unit at a time followed by 80 mg IV furosemide to avoid volume overload (3) Metabolic acidosis: * CXR shows mild vascular congestion. Will try to minimize IVF. Will order NaHCO3 650 mg po TID * Monitor PRP (4) ANCA-positive vasculitis: * Patient and his family met w/ Dr. Foster 08/18 and discussed treatment options including steroid and rituximab therapy. He did not keep his follow up appointment. He indicates tonight that he does not desire aggressive therapy such as immunosuppressants. Likelihood of recovery is quite low given Cr > 4.0 History of Present Illness Reason for Consultation: ESKD, metabolic acidosis, anemia Attending Physician: Nicholas Nettles MD History of Present Illness Mr. Mackenzie is a 72 year old male who is seen at the request of the hospitalist service for evaluation of ESKD, metabolic acidosis and anemia. 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 He has declined immunosuppressive therapy and dialysis due to cost and because life sustaining therapy such as dialysis is not consistent with his Sabianist ventura. Mr. Mattson has become increasingly fatigued. He has had no overt blood loss. He was visiting family in [place] and had blood work drawn. Hgb was 3.0. Mr. Mattson returned to [place], [place] and subsequently presented to the [facility] for evaluation. Upon arrival Mr. Mattson indicated that he will accept blood transfusion but has reaffirmed to the ED staff and hospitalist service that he does not want dialysis. Blood transfusion has been ordered. Hospitalist service requests Nephrology consultation to assess need for bicarbonate administration to correct metabolic acidosis. Allergies Allergy/AdvReac Type Severity Reaction Status Date / Time No Known Allergies Allergy Verified 11/23/22 15:29 Home Medications Medication Instructions Recorded Confirmed Type aspirin 81 mg tablet,delayed 81 mg PO QAM #90 tabs 08/09/22 11/23/22 Rx release calcitriol 0.25 mcg capsule 0.25 mcg PO QAM #30 caps 08/09/22 11/23/22 Rx simvastatin 20 mg tablet 20 mg PO DAILY #30 tabs 08/09/22 11/23/22 Rx sodium bicarbonate 650 mg tablet 650 mg PO BID #60 tabs 08/09/22 11/23/22 Rx amlodipine 2.5 mg tablet 2.5 mg PO DAILY #30 tabs 09/28/22 11/23/22 Rx bumetanide 1 mg tablet 1 mg PO DAILY weigh gain or 09/28/22 11/23/22 Rx shortness of breath #30 tabs calcium acetate(phosphat bind) 667 667 mg PO QID #120 tabs 09/28/22 11/23/22 Rx mg tablet metoprolol tartrate 25 mg tablet 25 mg PO BID 30 days #60 tabs 09/28/22 11/23/22 Rx gabapentin 100 mg capsule 200 mg PO HS #60 caps 10/25/22 11/23/22 Rx oxycodone 5 mg tablet 5 - 10 mg PO Q8H PRN pain #20 tabs 11/23/22 Rx tamsulosin 0.4 mg capsule 0.4 mg PO QPM 11/23/22 11/23/22 History Patient History Medical History ANCA-positive vasculitis Anemia ARF (acute renal failure) Bigeminy BPH (benign prostatic hyperplasia) Cardiomyopathy Enlarged prostate Frequent PVCs HFrEF (heart failure with reduced ejection fraction) HTN (hypertension) Hyperparathyroidism Hyperphosphatemia Metabolic acidosis Mitral regurgitation Osteoarthritis Osteoarthritis Pulmonary hypertension TIA (transient ischemic attack) Surgical History History of herniorrhaphy Inguinal hernia (done under local) History of hip replacement History of tooth extraction Family History Other Anemia No family history of adverse response to anesthesia Denies family history of Heart disease Cancer Social History Smoking Status: Never smoker Second Hand Exposure: No; Hx Alcohol Use: No Hx Substance Use: No Preferred Language: French Communication Ability: Effective 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 Beliefs That Will Affect Care: Cultural Cultural Beliefs: Sabianist marital status: Current Living Situation: Family Current Living Situation Comment: AND 2 DAUGHTERS Other Information That Helps Us Care for You: No Feels Safe at Home: Yes Safety Concerns: Feels Safe At This Time Assistive Devices: Cane, Denture - Upper, Denture - Lower and Glasses Review of Systems Constitutional: no fever Eyes: no problem reported Ear, Nose, Mouth, Throat: no problem reported Respiratory: + dyspnea on exertion Cardiovascular: no chest pain Gastrointestinal: no abdominal pain Musculoskeletal: + muscle weakness Physical Exam Constitutional: not in distress Eyes: PERRL, conjunctivae normal, anicteric sclerae ENMT: external ear and nose normal, oropharynx normal Neck: trachea midline, no thyromegaly Respiratory: normal respiratory effort, lungs clear to auscultation Cardiovascular: Rate/Rhythm: regular rate and regular rhythm Gastrointestinal (Abdomen): normal bowel sounds, soft, nontender, no hepatos plenomegaly Skin: no rashes, warm and dry Neurologic: Speech / Cognition: normal speech and normal cognition Results & Data ([facility]) Vital Signs (Past 12 Hours) Vital Signs Temp Pulse Pulse Resp BP BP Pulse Ox 11/23/22 17:00 80 11 L 100 11/23/22 17:00 148/84 H 11/23/22 16:30 80 16 98 11/23/22 16:20 85 18 11/23/22 16:20 158/85 H 11/23/22 16:24 36.7 C 82 16 158/85 H 99 11/23/22 15:32 82 16 136/82 97 11/23/22 15:02 80 16 136/80 97 11/23/22 14:47 82 16 138/66 97 11/23/22 14:45 36.5 C 79 10 L 121/69 100 11/23/22 14:28 36.5 C 80 16 120/62 100 11/23/22 14:09 100 11/23/22 14:05 79 126/65 100 11/23/22 11:54 36.5 C 94 H 20 128/66 93 O2 Del Method 11/23/22 17:00 11/23/22 17:00 11/23/22 16:30 11/23/22 16:20 11/23/22 16:20 11/23/22 16:24 Room Air 11/23/22 15:32 11/23/22 15:02 11/23/22 14:47 11/23/22 14:45 11/23/22 14:28 11/23/22 14:09 Room Air 11/23/22 14:05 Room Air 11/23/22 11:54 Room Air Laboratory Results Laboratory Results WBC 8.64 K/ul (4.8-10.8) 11/23/22 13:12 RBC 1.01 M/uL (4.63-6.08) L 11/23/22 13:12 Hgb 3.2 g/dl (14.0-18.0) L* 11/23/22 13:12 Hct 10.2 % (40.1-51.0) L* 11/23/22 13:12 MCV 101.0 fL (80.0-100.0) H 11/23/22 13:12 MCH 31.7 pg (25.0-34.0) 11/23/22 13:12 MCHC 31.4 g/dL (32.0-36.0) L 11/23/22 13:12 RDW Std Deviation 58.4 fL (36.4-46.3) H 11/23/22 13:12 RDW Coeff of Tobin 16.7 % (11.5-14.5) H 11/23/22 13:12 Plt Count 181 K/uL (130-400) 11/23/22 13:12 MPV 12.9 fL (9.4-12.4) H 11/23/22 13:12 Absolute Nucleated RBC 0.03 K/uL (0-0) H 11/23/22 13:12 Nucleated RBC % (auto) 0.3 % 11/23/22 13:12 PT 12.1 Seconds (9.0-12.0) H 11/23/22 13:12 INR 1.1 (0.9-1.1) 11/23/22 13:12 APTT 23.6 Seconds (21.0-31.0) 11/23/22 13:12 PTT Ratio 0.9 11/23/22 13:12 Sodium 140 mmol/L (136-145) 11/23/22 13:12 Sodium Cancelled 11/23/22 13:12 Potassium 5.0 mmol/L (3.5-5.1) 11/23/22 13:12 Potassium Cancelled 11/23/22 13:12 Chloride 110 mmol/L (98-107) H 11/23/22 13:12 Chloride Cancelled 11/23/22 13:12 Carbon Dioxide 15 mmol/L (21-32) L 11/23/22 13:12 Carbon Dioxide Cancelled 11/23/22 13:12 Anion Gap 15 (3-11) H 11/23/22 13:12 Anion Gap Cancelled 11/23/22 13:12 BUN 122 mg/dl (6-23) H 11/23/22 13:12 BUN Cancelled 11/23/22 13:12 Creatinine 6.43 mg/dl (0.6-1.4) H* 11/23/22 13:12 Creatinine Cancelled 11/23/22 13:12 Est Cr Clr Drug Dosing 9.8 ml/min 11/23/22 13:12 Est Cr Clr Drug Dosing Cancelled 11/23/22 13:12 Est GFR ( Amer) 9.0 ml/min 11/23/22 13:12 Est GFR ( Amer) Cancelled 11/23/22 13:12 Est GFR (Non-Af Amer) 7.8 ml/min 11/23/22 13:12 Est GFR (Non-Af Amer) Cancelled 11/23/22 13:12 BUN/Creatinine Ratio 19.0 (10-20) 11/23/22 13:12 BUN/Creatinine Ratio Cancelled 11/23/22 13:12 Glucose 138 mg/dl (70-99(Fasting)) H 11/23/22 13:12 Glucose Cancelled 11/23/22 13:12 POC Glucose 150 mg/dl (70-99) H 11/23/22 17:14 Calcium 8.4 mg/dl (8.5-10.1) L 11/23/22 13:12 Calcium Cancelled 11/23/22 13:12 Total Bilirubin 0.3 mg/dl (0.2-1.0) 11/23/22 13:12 Total Bilirubin Cancelled 11/23/22 13:12 AST 127 U/L (13-39) H 11/23/22 13:12 AST Cancelled 11/23/22 13:12 ALT 272 U/L (7-52) H 11/23/22 13:12 ALT Cancelled 11/23/22 13:12 Alkaline Phosphatase 60 U/L (34-104) 11/23/22 13:12 Alkaline Phosphatase Cancelled 11/23/22 13:12 Troponin I High Sens 427.6 pg/ml (0-20) H* 11/23/22 13:12 Total Protein 5.5 gm/dl (6.0-8.3) L 11/23/22 13:12 Total Protein Cancelled 11/23/22 13:12 Albumin 2.9 gm/dl (3.4-5.0) L 11/23/22 13:12 Albumin Cancelled 11/23/22 13:12 Globulin 2.6 gm/dl (2.5-4.0) 11/23/22 13:12 Globulin Cancelled 11/23/22 13:12 Albumin/Globulin Ratio 1.1 (0.9-2) 11/23/22 13:12 Albumin/Globulin Ratio Cancelled 11/23/22 13:12 POC Stool Occult Blood Positive (Negative) A 11/23/22 14:05 SARS-CoV-2, RNA, NAAT NEGATIVE (NEGATIVE) 11/23/22 14:08 Blood Type O Positive 11/23/22 13:12 Antibody Screen NEGATIVE 11/23/22 13:12 Crossmatch See Detail 11/23/22 13:12 Impressions Chest X-Ray 11/23/22 15:46 XR chest 1V portable CLINICAL HISTORY: volume overload TECHNIQUE: Single frontal radiograph of the chest was obtained. Comparison: Comparison is made to chest radiograph 08/04/2022 FINDINGS: No lines and tubes are seen. Cardiomegaly is noted. Prominence and cephalization of the vasculature is seen. No evidence of pleural effusion or pneumothorax. IMPRESSION: Cardiomegaly and mild pulmonary edema. ACT 112: Negative or not required by law. Electronically signed by: Franki Bang M.D. 11/23/2022 4:24 PM PG Care Time/CCT Total # of Minutes Spent Total Time Spent with Patient: Total time spent is greater than 50% in coordination of care (as documented) at patient's floor/unit and/or counseling patient: Coding Level of Care Code 84256 Inpt Consult Level 5 Diagnoses Chronic kidney disease, stage V N18.5 Anemia D64.9 Metabolic acidosis E87.2 ANCA-positive vasculitis I77.6
[2022-11-23 18:07] LABS: Magnesium 2.5 mg/dl (1.7-2.4); Phosphorus 7.6 mg/dl (2.5-4.9)
[2022-11-23 18:13] LABS: Troponin I High Sensitivity 403.5 pg/ml (0-20)
--- NOTE | 2022-11-23 18:25 | Electrocardiogram Report ---
Test Reason : Blood Pressure : / mmHG Vent. Rate : 077 BPM Atrial Rate : 077 BPM P-R Int : 174 ms QRS Dur : 082 ms QT Int : 380 ms P-R-T Axes : 037 009 215 degrees QTc Int : 430 ms Normal sinus rhythm Abnormal ECG When compared with ECG of 07-AUG-2022 13:22, Premature ventricular complexes are no longer Present T wave inversion now evident in Inferior leads Confirmed by Landry Rico ([id number]) on 11/23/2022 6:24:40 PM Referred By: REFERRED SELF Confirmed By:Ricardo Rico
[2022-11-23] MEDS ORDERED: rOPINIRole HCL 1 MG TABLET PO SCH (21:00)
[2022-11-23] MEDS: PANTOprazole 40 MG in SYRINGE 0 ML IV SCH (21:22)
[2022-11-23] MEDS: SODIUM BICARBONATE 650 MG TAB PO SCH (21:23)
[2022-11-23] MEDS: GABAPENTIN 100 MG CAP PO SCH (21:23)
[2022-11-23] MEDS: CALCIUM ACETATE 667 MG CAP/TAB PO SCH (21:23)
[2022-11-23] MEDS: TAMSULOSIN HCL 0.4 MG CAP PO SCH (21:23)
[2022-11-23] MEDS: METOPROLOL TARTRATE 25 MG TAB PO SCH (21:23)
[2022-11-24] MEDS ORDERED: BUMETANIDE 1 MG in SYRINGE 0 ML IV ONE (02:30)
[2022-11-24 03:43] LABS: Hematocrit (blood only) 19.4 % (40.1-51.0); Hemoglobin 6.5 g/dl (14.0-18.0)
[2022-11-24] MEDS ORDERED: SODIUM CHLORIDE 0.9% 250 ML IV PRN ×2 (03:45→09:09)
[2022-11-24 07:43] LABS: Hematocrit (blood only) 19.1 % (40.1-51.0); Hemoglobin 6.4 g/dl (14.0-18.0); Mean Corpuscular Hemoglobin 30.3 pg (25.0-34.0); Mean Corpuscular Hgb Conc 33.5 g/dL (32.0-36.0); Mean Corpuscular Volume 90.5 fL (80.0-100.0); Mean Platelet Volume 12.4 fL (9.4-12.4); Nucleated RBC # (auto) 0.03 K/uL (0-0); Nucleated RBC % (auto) 0.4 %; Platelet Count 144 K/uL (130-400); RDW Coefficient of Variation 17.5 % (11.5-14.5); Red Blood Count 2.11 M/uL (4.63-6.08); White Blood Count 7.76 K/ul (4.8-10.8)
[2022-11-24 07:56] LABS: Albumin Globulin Ratio 1.1 (0.9-2); Albumin Level 2.7 gm/dl (3.4-5.0); Bilirubin,Total 0.4 mg/dl (0.2-1.0); Calcium 7.7 mg/dl (8.5-10.1); Creatinine Clr Calc Pharmacy 9.6 ml/min; Est GFR (African American) 8.8 ml/min; Est GFR (Non-African American) 7.6 ml/min; Globulin 2.4 gm/dl (2.5-4.0); Magnesium 2.4 mg/dl (1.7-2.4); Potassium 4.8 mmol/L (3.5-5.1); Total Protein 5.1 gm/dl (6.0-8.3)
--- NOTE | 2022-11-24 08:51 | Nephrology Progress Note ---
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 Mackenzie and his and son. They are open to hospice care and would like to meet w/ Palliative Care. Request for consultation has been placed in EMR (2) Anemia: Plan: * Symptomatically improved following 1 u PRBC * Recommend transfusing 2nd unit PRBC today followed by 1 mg Bumex IV (3) Metabolic acidosis: Plan: * CXR shows mild vascular congestion. Will try to minimize IVF. Will order NaHCO3 650 mg po QID * Monitor PRP (4) ANCA-positive vasculitis: Plan: * Patient and his family met w/ Dr. Foster 08/18 and discussed treatment options including steroid and rituximab therapy. He did not keep his follow up appointment. He indicates tonight that he does not desire aggressive therapy such as immunosuppressants. Likelihood of recovery is quite low given Cr > 4.0 Admission and Anticipated Discharge Date Admission Date: November 23, 2022 Subjective Mr. Mackenzie was evaluated in his hospital room this morning. He tolerated blood transfusion without volume overload. Mr. Mackenzie reaffirms his decision not to pursue HD, immunosuppressive therapy or heroic measures. He and his family would like to meet with Palliative Care. Review of Systems Constitutional: no fever Eyes: no problem reported Ear, Nose, Mouth, Throat: no problem reported Respiratory: + dyspnea on exertion Cardiovascular: no chest pain Gastrointestinal: no abdominal pain Musculoskeletal: + muscle weakness Physical Exam Constitutional: not in distress Eyes: PERRL, conjunctivae normal, anicteric sclerae ENMT: external ear and nose normal, oropharynx normal Neck: trachea midline, no thyromegaly Respiratory: normal respiratory effort, lungs clear to auscultation Cardiovascular: Rate/Rhythm: regular rate and regular rhythm Gastrointestinal (Abdomen): normal bowel sounds, soft, nontender, no hepatosplenomegaly Skin: no rashes, warm and dry Neurologic: Speech / Cognition: normal speech and normal cognition Results & Data ([facility]) Vital Signs (Past 12 Hours) Vital Signs Temp Pulse Pulse Resp BP BP Pulse Ox 11/24/22 07:56 36.8 C 75 16 146/81 H 95 11/24/22 03:40 36.4 C L 75 18 143/66 H 95 11/23/22 22:52 75 11/24/22 01:33 36.2 C L 72 16 145/74 H 90 11/24/22 00:33 36.2 C L 75 14 154/79 H 97 11/24/22 00:03 36.2 C L 71 15 156/79 H 97 11/23/22 23:48 36.7 C 71 13 152/82 H 98 11/23/22 23:32 36.4 C L 71 15 145/84 H 96 11/23/22 23:23 36.3 C L 71 14 158/77 H 97 11/23/22 23:06 36.4 C L 74 14 137/79 93 11/23/22 23:01 11/23/22 22:06 36.5 C 76 20 140/84 96 11/23/22 21:06 36.7 C 82 23 137/77 97 O2 Del Method 11/24/22 07:56 Room Air 11/24/22 03:40 Room Air 11/23/22 22:52 11/24/22 01:33 11/24/22 00:33 11/24/22 00:03 11/23/22 23:48 11/23/22 23:32 11/23/22 23:23 Room Air 11/23/22 23:06 11/23/22 23:01 Room Air 11/23/22 22:06 11/23/22 21:06 Laboratory Results Laboratory Tests 11/23/22 11/24/22 11/24/22 17:25 07:13 07:13 WBC 7.76 Hgb 6.4 L* Hct 19.1 L* Plt Count 144 Sodium 139 Potassium 4.8 Chloride 111 H Carbon Dioxide 15 L BUN 118 H Creatinine 6.56 H* AST 57 H ALT 200 H Troponin I High Sens 403.5 H* Albumin 2.7 L PG Care Time/CCT Total # of Minutes Spent Total Time Spent with Patient: Total time spent is greater than 50% in coordination of care (as documented) at patient's floor/unit and/or counseling patient: Coding Level of Care Code 63161 Subseq Hosp Care Lvl 3 Diagnoses Chronic kidney disease, stage V N18.5 Anemia D64.9 Metabolic acidosis E87.2 ANCA-positive vasculitis I77.6
[2022-11-24] MEDS: METOPROLOL TARTRATE 25 MG TAB PO SCH ×2 (09:11→20:08)
[2022-11-24] MEDS: PANTOprazole 40 MG in SYRINGE 0 ML IV SCH ×2 (09:12→20:06)
[2022-11-24] MEDS: CALCITRIOL 0.25 MCG CAPSULE PO SCH (09:12)
[2022-11-24] MEDS: SODIUM BICARBONATE 650 MG TAB PO SCH ×4 (09:12→20:07)
[2022-11-24] MEDS: CALCIUM ACETATE 667 MG CAP/TAB PO SCH ×4 (09:12→20:15)
[2022-11-24] MEDS ORDERED: FUROSEMIDE 40 MG/4 ML VIAL IV ONE ×2 (09:26→13:56)
[2022-11-24 09:56] LABS: iSTAT Blood Urea Nitrogen 126 mg/dl (7-18); iSTAT Carbon Dioxide 16 mmol/L (24-31); iSTAT Chloride 111 mmol/L (101-112); iSTAT Creatinine 7.7 mg/dl (0.6-1.3); iSTAT Glucose 135 mg/dl (70-99); iSTAT Hematocrit < 15 % (42-52); iSTAT Ionized Calcium 1.15 mmol/l (1.12-1.32); iSTAT Potassium 4.9 mmol/L (3.3-5.0); iSTAT Sodium 139 mmol/L (135-144)
--- NOTE | 2022-11-24 12:16 | Palliative Care Consultation ---
Date of Consultation November 24, 2022 Assessment & Plan (1) Palliative care encounter: I met with Mr. Mackenzie, his and two of his sons, at bedside. We reviewed his current status and they have a good understanding of his illness. He is quite clear that he does not want dialysis moving forward. He did ask about whether it would be possible for him to get additional transfusions. We discussed concern that without treatment of underlying cause and with his renal failure, this would be only a temporary fix and would likely result in an ongoing cycle of transfusions. We also discussed side effects and prognosis from his renal failure without dialysis which would mitigate benefits of transfusions. We discussed what was most important to him. His answer was "getting to heaven". He has strong [facility] ventura and feels that his care and prognosis is in the hands of God. They asked about medications for comfort which could be provided and managed by hospice. He wants to be at home and did ask about hospice care at home. We discussed role of hospice team and support available. [facility] covers [facility] and works with the [facility] community. Discussed with case management team and they have arranged a hospice nurse to speak with them at bedside tomorrow morning at 10am to discuss care plan, equipment and reimbursement. Discussed with case management. History of Present Illness Reason for Consultation: goals of care Requesting Physician: Dr. Strickland Attending Physician: Tawana Velasco MD History of Present Illness 72 yo [facility] gentleman with ESRD and p-ANCA vasculitis. He also has HFrEF with EF of 40-45% on echo from July of this year. He has been having fatigue and labwork showed hemoglobin of 3.2. He has been receiving transfusions 1 unit at a time with diuresis and hemoglobin is now 6.4 His creatinine is 6.56 with GFR of 7.6 and BUN of 118. He reports feeling a little better but is still fatigued. He denies dyspnea. He has been seen by Dr. Strickland who discussed possible dialysis but Mr. Mackenzie has declined dialysis. He is awake and alert but very weak. Allergies Allergy/AdvReac Type Severity Reaction Status Date / Time No Known Allergies Allergy Verified 11/23/22 15:29 Home Medications Medication Instructions Recorded Confirmed Type aspirin 81 mg tablet,delayed 81 mg PO QAM #90 tabs 08/09/22 11/23/22 Rx release calcitriol 0.25 mcg capsule 0.25 mcg PO QAM #30 caps 08/09/22 11/23/22 Rx simvastatin 20 mg tablet 20 mg PO DAILY #30 tabs 08/09/22 11/23/22 Rx sodium bicarbonate 650 mg tablet 650 mg PO BID #60 tabs 08/09/22 11/23/22 Rx amlodipine 2.5 mg tablet 2.5 mg PO DAILY #30 tabs 09/28/22 11/23/22 Rx bumetanide 1 mg tablet 1 mg PO DAILY weigh gain or 09/28/22 11/23/22 Rx shortness of breath #30 tabs calcium acetate(phosphat bind) 667 667 mg PO QID #120 tabs 09/28/22 11/23/22 Rx mg tablet metoprolol tartrate 25 mg tablet 25 mg PO BID 30 days #60 tabs 09/28/22 11/23/22 Rx gabapentin 100 mg capsule 200 mg PO HS #60 caps 10/25/22 11/23/22 Rx oxycodone 5 mg tablet 5 - 10 mg PO Q8H PRN pain #20 tabs 11/23/22 Rx tamsulosin 0.4 mg capsule 0.4 mg PO QPM 11/23/22 11/23/22 History Patient History Medical History ANCA-positive vasculitis Anemia ARF (acute renal failure) Bigeminy BPH (benign prostatic hyperplasia) Cardiomyopathy Enlarged prostate Frequent PVCs HFrEF (heart failure with reduced ejection fraction) HTN (hypertension) Hyperparathyroidism Hyperphosphatemia Metabolic acidosis Mitral regurgitation Osteoarthritis Osteoarthritis Pulmonary hypertension TIA (transient ischemic attack) Surgical History History of herniorrhaphy Inguinal hernia (done under local) History of hip replacement History of tooth extraction Family History Other Anemia No family history of adverse response to anesthesia Denies family history of Heart disease Cancer Social History Smoking Status: Never smoker Second Hand Exposure: No; Hx Alcohol Use: No Hx Substance Use: No Preferred Language: Lao Communication Ability: Effective Prepleater Required: No Beliefs That Will Affect Care: Cultural Cultural Beliefs: [facility] marital status: Current Living Situation: Family Current Living Situation Comment: AND 2 DAUGHTERS Other Information That Helps Us Care for You: No Feels Safe at Home: Yes Safety Concerns: Feels Safe At This Time Assistive Devices: None Review of Systems Review of Systems: ESAS Pain 0/3 Dyspnea 0/3 Anxiety 0/3 Nausea 0/3 Fatigue 2/3 Physical Exam Constitutional: no acute distress ENMT: Mouth: oral mucous membranes not dry Respiratory: normal respiratory effort; no labored breathing Skin: pale Neurologic: Speech / Cognition: normal cognition Genitourinary: continent Results & Data ([facility]) Vital Signs (Past 12 Hours) Vital Signs Temp Pulse Pulse Resp BP BP Pulse Ox 11/24/22 12:08 98.2 F 73 16 150/81 H 92 11/24/22 11:08 97.2 F L 74 18 125/70 93 11/24/22 10:38 97.7 F 77 18 138/74 93 11/24/22 10:23 97.2 F L 77 18 148/83 H 94 11/24/22 08:00 11/24/22 10:08 97.9 F 79 18 142/80 H 94 11/24/22 09:59 97.9 F 79 18 142/80 H 94 11/24/22 06:00 76 11/24/22 07:56 98.2 F 75 16 146/81 H 95 11/24/22 03:40 97.5 F L 75 18 143/66 H 95 11/24/22 01:33 97.2 F L 72 16 145/74 H 90 11/24/22 00:33 97.2 F L 75 14 154/79 H 97 O2 Del Method O2 Flow Rate 11/24/22 12:08 11/24/22 11:08 11/24/22 10:38 11/24/22 10:23 11/24/22 08:00 Room Air 11/24/22 10:08 0 11/24/22 09:59 0 11/24/22 06:00 11/24/22 07:56 Room Air 11/24/22 03:40 Room Air 11/24/22 01:33 11/24/22 00:33 PG Care Time/CCT Total # of Minutes Spent Total Time Spent: 80 Total Time Spent with Patient: Total time spent is greater than 50% in coordination of care (as documented) at patient's floor/unit and/or counseling patient:[id number] Goals of care, hospice, prognosis, patient and family education and support, coordination of care Coding Level of Care Code 94610 Initial Inpt Care Lvl 3 Diagnoses Palliative care encounter Z51.5
--- NOTE | 2022-11-24 18:15 | Hospitalist Progress Note ---
Date of Service November 24, 2022 Assessment & Plan (1) Anemia: Plan: Mr. Mattson is a 72 yo M with a PMHx of ESRD due to p-ANCA vasculitis who was admitted for a Hgb of 3.2. Anemia: - Patient is currently hemodynamically stable - Hgb improved to 6.4 today up from 3.2 on admission with transfusion of 1 unit of PRBCs, appropriate response - Likely a combination of his CBD and possible GI bleed - one additional unit of PRBC given today, followed by 1mg IV bumex dose to prevent pulm vasc congestion - Patient met with palliative care today, ivan going home on hospice in the coming days --> however does not want to be on comfort measures only yet - trend H+H GI Bleed - patient anemic with + heme in stool - BUN elevated, suggestive of upper source - PPI 40mg IV BID ordered - GI not consulted as he would not be stable enough for a colonoscopy and the patient may not want to proceed with a workup Congestive heart failure - CXR showing mild pulm vasc congestion - 1mg IV bumex given after each blood transfusion - resume home bumex dose on 11/25 Metabolic acidosis: -AG is currently at 15 with Bicarb of 15 -Continue BID sodium bicarb tabs -Nephrology following, appreciate recs - trend BMP Elevated troponin: - Initial trop elevated at 427, has since downtrended -No significant ECG changes when compared to his previous ECGs -Likely due to demand from his severe anemia Hyperphosphatemia: -Continue Phosphate binder - 7.6 on admission Chronic kidney disease, stage V: - 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 - Cr remains relatively stable at 6.5; K normal at 4.8 - Patient has declined HD and does not desire any life sustaining therapy because of his [employer] ventura HTN (hypertension): -Continue metoprolol but hold amlodipine BPH (benign prostatic hyperplasia): -Continue flomx Code: DNR/DNI Diet: low Na, dialysis Dvt ppx: hold due to anemia Dispo: Med/Tele given anemia Admission and Anticipated Discharge Date Admission Date: November 23, 2022 Subjective Patient feeling better -- plans to have family meeting with palliative care at noon today Review of Systems Review of Systems: All systems reviewed & are unremarkable except as noted in HPI & below Physical Exam Constitutional: WD/WN, vitals as above Eyes: + anicteric sclerae ENMT: external ear and nose normal, oropharynx normal Neck: trachea midline, no thyromegaly Respiratory: normal respiratory effort, lungs clear to auscultation no cough Cardiovascular: RRR, no murmur, no edema Musculoskeletal: Head/Neck/Chest: normocephalic and head atraumatic Skin: no rashes, warm and dry Psychiatric: A+Ox3, euthymic affect Results & Data Results & Data ([facility]) Vital Signs (Past 12 Hours) Vital Signs Temp Pulse Pulse Resp BP BP Pulse Ox 11/24/22 16:17 36.6 C 78 16 140/76 95 11/24/22 14:33 77 11/24/22 13:50 36.4 C L 76 16 138/79 93 11/24/22 13:49 36.4 C L 76 16 138/79 93 11/24/22 13:08 36.4 C L 72 16 140/75 92 11/24/22 12:08 36.8 C 73 16 150/81 H 92 11/24/22 11:08 36.2 C L 74 18 125/70 93 11/24/22 10:38 36.5 C 77 18 138/74 93 11/24/22 10:23 36.2 C L 77 18 148/83 H 94 11/24/22 08:00 11/24/22 10:08 36.6 C 79 18 142/80 H 94 11/24/22 09:59 36.6 C 79 18 142/80 H 94 11/24/22 07:56 36.8 C 75 16 146/81 H 95 O2 Del Method O2 Flow Rate 11/24/22 16:17 Room Air 11/24/22 14:33 11/24/22 13:50 0 11/24/22 13:49 11/24/22 13:08 11/24/22 12:08 11/24/22 11:08 11/24/22 10:38 11/24/22 10:23 11/24/22 08:00 Room Air 11/24/22 10:08 0 11/24/22 09:59 0 11/24/22 07:56 Room Air PG Care Time/CCT Total # of Minutes Spent Total Time Spent with Patient: Total time spent is greater than 50% in coordination of care (as documented) at patient's floor/unit and/or counseling patient: Coding Level of Care Code 55263 Subseq Hosp Care Lvl 2 Diagnoses Anemia D64.9
[2022-11-24] MEDS: TAMSULOSIN HCL 0.4 MG CAP PO SCH (20:07)
[2022-11-24] MEDS: rOPINIRole HCL 0.25 MG TABLET PO SCH (20:08)
[2022-11-24] MEDS: GABAPENTIN 100 MG CAP PO SCH (20:08)
[2022-11-25 08:08] LABS: Hematocrit (blood only) 23.4 % (40.1-51.0); Hemoglobin 7.8 g/dl (14.0-18.0); Mean Corpuscular Hemoglobin 30.5 pg (25.0-34.0); Mean Corpuscular Hgb Conc 33.3 g/dL (32.0-36.0); Mean Corpuscular Volume 91.4 fL (80.0-100.0); Mean Platelet Volume 12.5 fL (9.4-12.4); Platelet Count 151 K/uL (130-400); RDW Coefficient of Variation 18.3 % (11.5-14.5); RDW Standard Deviation 56.8 fL (36.4-46.3); Red Blood Count 2.56 M/uL (4.63-6.08); White Blood Count 7.79 K/ul (4.8-10.8)
[2022-11-25] MEDS: CALCIUM ACETATE 667 MG CAP/TAB PO SCH ×2 (08:12→12:02)
[2022-11-25] MEDS: PANTOprazole 40 MG in SYRINGE 0 ML IV SCH (08:12)
[2022-11-25] MEDS: SODIUM BICARBONATE 650 MG TAB PO SCH ×2 (08:13→12:02)
[2022-11-25] MEDS: rOPINIRole HCL 0.25 MG TABLET PO SCH (08:13)
[2022-11-25] MEDS: METOPROLOL TARTRATE 25 MG TAB PO SCH (08:13)
[2022-11-25] MEDS: CALCITRIOL 0.25 MCG CAPSULE PO SCH (08:13)
[2022-11-25 08:32] LABS: Albumin Level 2.6 gm/dl (3.4-5.0); BUN Creatinine Ratio 18.6 (10-20); Bilirubin,Total 0.4 mg/dl (0.2-1.0); Calcium 7.7 mg/dl (8.5-10.1); Creatinine Clr Calc Pharmacy 10.1 ml/min; Est GFR (African American) 9.3 ml/min; Globulin 2.7 gm/dl (2.5-4.0); Magnesium 2.3 mg/dl (1.7-2.4); Potassium 4.7 mmol/L (3.5-5.1); Total Protein 5.3 gm/dl (6.0-8.3)
--- NOTE | 2022-11-25 08:48 | Nephrology Progress Note ---
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 Mackenzie and his family reaffirm that they wish to proceed w/ hospice care and expect to have this set up today. No further Nephrology evaluation is indicated. Will sign off. Please call if further assistance is needed (2) Anemia: Plan: * Symptomatically improved following 4 u PRBC (3) Metabolic acidosis: Plan: * Continue NaHCO3 650 mg po QID (4) ANCA-positive vasculitis: Plan: * Patient has declined immunosuppressive therapy due to need for close surveillance and frequent medical office evaluations Admission and Anticipated Discharge Date Admission Date: November 23, 2022 Subjective Mr. Mackenzie was evaluated in his hospital room this morning. His and son were at bedside. Mr. Mackenzie reports improved strength following 4 u PRBC Review of Systems Constitutional: no fever Eyes: no problem reported Ear, Nose, Mouth, Throat: no problem reported Respiratory: + dyspnea on exertion Cardiovascular: no chest pain Gastrointestinal: no abdominal pain Musculoskeletal: + muscle weakness Physical Exam Constitutional: not in distress Eyes: PERRL, conjunctivae normal, anicteric sclerae ENMT: external ear and nose normal, oropharynx normal Neck: trachea midline, no thyromegaly Respiratory: normal respiratory effort, lungs clear to auscultation Cardiovascular: Rate/Rhythm: regular rate and regular rhythm Gastrointestinal (Abdomen): normal bowel sounds, soft, nontender, no hepatosplenomegaly Skin: no rashes, warm and dry Neurologic: Speech / Cognition: normal speech and normal cognition Results & Data ([facility]) Vital Signs (Past 12 Hours) Vital Signs Temp Pulse Pulse Resp BP Pulse Ox O2 Del Method 11/25/22 08:04 36.4 C L 66 16 149/63 H 95 Room Air 11/25/22 04:43 36.5 C 69 16 125/73 91 Room Air 11/25/22 00:00 67 11/24/22 23:47 36.6 C 65 16 144/83 H 92 Room Air Laboratory Results Laboratory Tests 11/23/22 11/25/22 11/25/22 17:25 07:33 07:33 WBC 7.79 Hgb 7.8 L Hct 23.4 L Plt Count 151 Sodium 138 Potassium 4.7 Chloride 109 H Carbon Dioxide 17 L BUN 117 H Creatinine 6.29 H* Glucose 99 Calcium 7.7 L Troponin I High Sens 403.5 H* Albumin 2.6 L PG Care Time/CCT Total # of Minutes Spent Total Time Spent with Patient: Total time spent is greater than 50% in coordination of care (as documented) at patient's floor/unit and/or counseling patient: Coding Level of Care Code 15249 Subseq Hosp Care Lvl 2 Diagnoses Chronic kidney disease, stage V N18.5 Anemia D64.9 Metabolic acidosis E87.2 ANCA-positive vasculitis I77.6
--- NOTE | 2022-11-25 11:41 | Discharge Summary ---
Date of Service November 25, 2022 Admission HPI Per Admitting Provider Nicolas is a 72 year old male with a PMH significant for stage 5 CKD, previous right hip replacement, HFrEF (LVEF of 40-45% as of 08/05/22), HTN, CAD, ANCA- Positive Vasculitis, and hyperphosphatemia who presented to the [facility] ED on 11/23/22 at the recommendation from his PCP for an outpatient Hgb of 3.0. In the ED the patient was found to be afebrile, hemodynamically stable, and stable on RA. Repeat labs in the ED were significant for a WBC of 8.4, Hgb of 3.2 (down from 9.3 on 08/16/22), Hct of 10.2 (down from 29 as of 08/16/22), stable platelets at 181, PT of 12.1 otherwise stable coagulation workup, cr of 6.43 (down from 6.47 as of 08/16/22), sodium of 140, potassium of 5.0, chloride of 110, AG of 15 with bicarb of 15, corrected calcium of 9.3, total bili of 0.3, AST of 127, ALT of 272, alk phos of 60, initial high sensitivity trop of 427, POC stool occult blood positive, and covid negative. The ED staff spoke with the patient who clearly expressed that he would not want dialysis under any circumstances, even if it were life saving. Prior to admission the patient was start on a Protonix drip, consented for blood, and was ordered 1 unit PRBC's. At the time of the exam the was resting comfortably in bed in no acute distress with his family sitting bedside, history was obtained from them all. They confirmed that the patient had outpatient labs drawn by his PCP and they were recommended to come to the ED due to his low hemoglobin. Recently the patient has had worsening weakness, restless legs, and severe dyspnea with exertion. He denies recent fevers, chills, chest pain, nausea, vomiting, abdomin al pain, dysuria, hematuria, diarrhea, and recent falls. He has noted significant BL lower extremity edema over the past few weeks. He and his family state that he has been taking his Bumex as prescribed. He was prescribed 2.5 mg PO amlodipine by his PCP on 09/28/22 for hypertension. They explained that after he starting taking the amlodipine he experienced orthostatic hypotension and syncope, so he stopped taking it. He also stopped taking his atorvastatin due to it possibly causing his restless legs. We had a long discussion regarding his tentative prognosis and high risk for decompensation. The patient clearly stated that he is a DNR/DNI and does not want dialysis. I explained that we can start with giving him one unit of PRBC's at a time with diuretics to prevent volume overload and see how he responds. If he were to acutely decline he and his family would want him transitioned to comfort measures. They asked if home hospice would be an option if it did not look as though the current treatment plan is working or causing him too much discomfort. I explained that this could be arranged if he is not doing well during his admission and wishes to go home on hospice. Please refer to Dr. Nettles's attestation for any changes to the treatment plan Admission Exam Per Admitting Provider General:In no acute distress, stated age, chronically ill-appearing, extremely pale HEENT:Normocephalic, atraumatic, no scleral icterus, pupils around round, symmetrical, and reactive to light, dry mucus membranes, trachea midline, no thyromegaly Chest/Pulm:No respiratory distress, symmetrical chest expansion, clear breath sounds throughout Cardiac:RRR, no murmurs noted Abdomen:Negative for ascites and bruising, normoactive bowel sounds, soft, non-tender to palpation throughout Musculoskeletal:Symmetrical and without signs of acute trauma, upper and lower extremities with full ROM, no atrophy, spasticity, or flaccidity Extremities:Radial, dorsalis pedis, and posterior tibial pulses are intact and symmetrical, 3+ pitting edema noted in the BL LE's Skin:Warm, dry, no rashes , lesions, or scars noted Neuro:Alert and oriented to person, place, month, year, and president, no focal defects, CN II-XII tested and intact, finger to nose test negative, no tremors noted Psych:No acute distress, calm and cooperative during the exam Principal Diagnosis Anemia Discharge Exam Constitutional WD/WN, vitals as above Eyes + anicteric sclerae ENMT external ear and nose normal, oropharynx normal Neck trachea midline, no thyromegaly Respiratory normal respiratory effort, lungs clear to auscultation Cardiovascular RRR, no murmur, no edema Musculoskeletal Head/Neck/Chest: normocephalic and head atraumatic Skin no rashes, warm and dry Neurologic moves all extremities Psychiatric A+Ox3, euthymic affect Discharge Data Allergies Allergy/AdvReac Type Severity Reaction Status Date / Time No Known Allergies Allergy Verified 11/23/22 15:29 Consultations 11/23/22 14:37 ED Decision to Admit Stat 11/23/22 16:51 Consult Nephrology Routine 11/23/22 17:16 Consult Palliative Care Routine Hospital Course (1) Anemia: Mr. Mattson is a 72 yo M with a PMHx of ESRD due to p-ANCA vasculitis who was admitted for a Hgb of 3.2. Ultimately, due to progressive underlying condition that he does not want to treat (due to conflicts with his ventura) he elected to go home with hospice services. Anemia: - Hgb improved to 7.8 after transfusion of 2 units of PRBCs over the course of his hospital stay - Likely a combination of his ESRD and suspected concurrent upper GI bleed GI Bleed - patient anemic with + heme in stool - BUN elevated, suggestive of upper source - PPI 40mg IV BID ordered while inpatient. - GI not consulted as he would not be stable enough for a colonoscopy and the patient may not want to proceed with a workup - Given appropriate response to pRBCs, suspect bleed slowed/stopped. Sent out on Protonix 40mg daily Congestive heart failure - CXR showing mild pulm vasc congestion - 1mg IV bumex given after each blood transfusion - resume home bumex dose by discharge - continue home metoprolol Metabolic acidosis: -AG at 15 with Bicarb of 15 -Continue BID sodium bicarb tabs -Nephrology was consulted Elevated troponin: - Initial trop elevated at 427, has since downtrended -No significant ECG changes when compared to his previous ECGs -Likely due to demand from his severe anemia Hyperphosphatemia: -Continue Phosphate binder - 7.6 on admission Chronic kidney disease, stage V: - 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 Total Time Total Time Spent Total Time Spent (In Minutes): > 35 minutes Total Time Includes: Examination of the Patient, Discharge Planning, Medication Reconciliation and Communication With Other Providers Discharge Plan Discharge Items Patient Disposition: Hospice - Home Reason For Visit: HGB OF 3.2 ON OUTPATIENT LABS Discharge Diagnosis: Anemia Activity: Resume your previous activity Non-emergency contact: Primary Care Provider Call non-emergency contact if: you have any medication questions Follow-up/Referrals: Jose Grey MD [Primary Care Provider] - 12/01/22 1:30 pm (Will be seen by Colton Caba PA-C) Diet: Low Potassium (2gm) Addtl Attending Provider Instructions: You were hospitalized at [facility] for a low hemoglobin level, which was indicative of severe anemia. The cause of your anemia was thought to be from your underlying kidney disease + a new bleed from your upper gastrointestinal tract (ie such as a bleeding stomach ulcer). We believe a stomach ulcer was present because you had blood in your stool. We treated you with blood transfusions and your hemoglobin improved. You were also given a dose of a medication to block acid in your stomach - this is important because it will help ulcers stop bleeding quicker. You met with palliative care while you were hospitalized and you and your family discussed how your kidney disease would continue to worsen without therapy, would you did not want to pursue. Additionally, the kidney disease would likely be fatal if you forgo dialysis, which would expressed a desire not to pursue because it was no in alignment with your ventura. Thus, you and your family felt as though the best option for you would be going home with hospice services. This was arranged for you at the time of your hospital discharge. We recommend you continue to take an oral form of the acid nimco, pantoprazole 40mg daily, for the next 4 weeks, to allow the presumed stomach ulcer to heal completely. A script for this was sent to your pharmacy. Also, while you were in the hospital, we sent a script for ropinirole 0.5mg twice daily for you to use for your restless leg syndrome. Pending Studies at Discharge: No Stand-Alone Forms: My [facility] Medications and DC Order Prescriptions: New oxycodone 5 mg tablet 5 - 10 mg PO Q8H PRN (Reason: pain) Qty: 20 0RF ropinirole 0.25 mg Tablet 0.5 mg PO BID 30 Days Qty: 120 0RF pantoprazole 40 mg tablet,delayed release (DR/EC) 40 mg PO DAILY 28 Days Qty: 28 0RF Continued gabapentin 100 mg capsule 200 mg PO HS Qty: 60 2RF bumetanide 1 mg tablet 1 mg PO DAILY Qty: 30 2RF metoprolol tartrate 25 mg tablet 25 mg PO BID 30 Days Qty: 60 5RF calcium acetate(phosphat bind) 667 mg tablet 667 mg PO QID Qty: 120 2RF sodium bicarbonate 650 mg Tablet 650 mg PO BID Qty: 60 5RF calcitriol 0.25 mcg Capsule 0.25 mcg PO QAM Qty: 30 5RF tamsulosin 0.4 mg capsule 0.4 mg PO QPM Rx Instructions: LAST FILLED 09/02/22 FOR 30 DAYS/30 PILLS Discontinued amlodipine 2.5 mg tablet 2.5 mg PO DAILY Qty: 30 2RF Rx Instructions: PER PT'S FAMILY "THINK QUIT TAKING THIS SOME TIME AGO". aspirin 81 mg Tablet,Delayed Release (Dr/Ec) 81 mg PO QAM Qty: 90 3RF simvastatin 20 mg tablet 20 mg PO DAILY Qty: 30 5RF Rx Instructions: PER PT'S FAMILY "THINK HE QUIT TAKING THIS MED, DID FEEL GOOD WHILE TAKING". Discharge Orders: Discharge Order (Routine); Ordered 11/25/22 Ordered By: Tawana Velasco Admission Data Admit Date/Time: 11/23/22 15:18 Attending Provider: Tawana Velasco Admit Provider: Nicholas Nettles Primary Care Provider: Jose Grey Other Providers: Nicholas Nettles ; Papo Strickland ; Teresita Douglas ; [facility] Other Interventions: Discharge Summary Assessment (RN) Last Done: 11/25/22 11:48 Coding Level of Care Code D/C DAY MANAGEMENT >30 MINS Diagnoses Anemia D64.9
== END 2022-11-25 13:11 | disposition hospice, home (50) | DRG 811 ==
LOC: ED 11:51 → SUATTDRO 15:18 → 1E 15:18 → 2S 21:02